=== PATIENT | female | born 1950 | race Caucasian/White ===

== ENCOUNTER → 2016-06-18 | Outpatient (CLI) | payer OTHER ==
[~2016-06-18] MED LIST: CANA100T PO; CEFU500T PO; FAMO20TA5 PO; FLUC200T45 PO; GBPN100C PO; HUM100VI4; HYDR-757 PO; INSU100V5 SQ; INSU100V6; METF-380 PO; ONDA-42 SL; SULF1TAB38 PO; THYROID MEDS
--- NOTE | 2016-06-19 08:56 | ECHOCARDIOGRAPHY REPORT ---
PROCEDURE PHYSICIAN: CALLIE JIM DATE OF PROCEDURE: 06/18/2016 TWO DIMENSIONAL ECHOCARDIOGRAM REPORT PRIMARY PHYSICIAN: OTHER PHYSICIAN: REFERRING PHYSICIAN: Dr. Padma Nuno and Angelika Sanchez APRN ORDERING PHYSICIAN: INDICATION FOR THE PROCEDURE: Shortness of breath. MEASUREMENTS DERIVED VALUES LV DIAMETER (LAX) NORMALS NORMALS Diastolic 4.5 (3.6-5.2) Eject. Fract. 50% (60%+/-6%) Systolic (2.3-3.9) Diastolic Vol. % Shortening (0.22-0.42) Systolic Vol. Aortic Root IVS THICKNESS Diastolic 1.2 (0.6-1.1) LVPW THICKNESS Diastolic 1.2 (0.6-1.1) LA DIAMETER Systolic 3.5 (2.1-3.7) FINDINGS: 1. Technical quality is good. 2. The left ventricle is normal in size with moderate left ventricular hypertrophy noted diffusely. Systolic function appeared to be normal. Estimated ejection fraction 50%. 3. The left atrium is normal in size. No clot or thrombus were seen within the left atrium. 4. The right atrium and right ventricle are normal in size. No clot or thrombus were seen within the right side. 5. 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 Mild mitral regurgitation noted by color Doppler flow. No mitral valve prolapse. No mitral valve stenosis. 6. Aortic valve is calcified, trileaflet. No significant aortic valve stenosis or regurgitation was seen. 7. Tricuspid valve is normal in morphology with mild tricuspid regurgitation noted by color Doppler flow. Doppler across tricuspid valve estimated pulmonary artery pressure of 18+ right atrial pressure. 8. Pulmonic valve is functioning normally. 9. No pericardial effusion. IN CONCLUSION: 1. Normal left ventricular size and systolic function. Estimated ejection fraction 50%. 2. 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 Mild mitral regurgitation, mild tricuspid regurgitation. 3. Aortic valve sclerosis. No aortic stenosis. 4. Estimated pulmonary artery pressure of 25 mmHg. Job ID: [id number] Dictated Date: 06/19/2016 08:09:19 Sales Commissions Analyst Date: 06/19/2016 08:52:36 / pedrito
== END ==
LOC: CARD 08:41
PROVIDERS: ATTEND Nurse Practitioner Community Health
DX: R06.02 Shortness of breath (principal)
CPT/HCPCS: 93306

== ENCOUNTER 2016-07-15 19:38 | Outpatient (CLI) | payer OTHER ==
--- OUTSIDE RECORDS SUMMARY | 2016-07-15 20:45 | XMS REPORT ---
Author Author NIKOLAS JACOB [facility] Address [address] [place] [address] Care Team Providers Care Mottle Lay Up Operator Name Role Phone NIKOLAS JACOB Unavailable PROBLEMS Type Condition ICD9-CM Code [id number] Code Onset Dates Condition Status SNOMED Code Problem Essential hypertension I10 Active 92201497 Problem Hyperlipidemia, unspecified hyperlipidemia type E78.5 Active 01923406 Problem Diabetes E11.9 Active 123585263 Assessment Edema, unspecified type R60.9 Jan, Active 056737683 Problem Neuropathy G62.9 Active 773062927 Problem Hypothyroidism, unspecified E03.9 Active 35993320 ALLERGIES Unknown Allergies SOCIAL HISTORY No smoking Hx information available PLAN OF CARE VITAL SIGNS MEDICATIONS Unknown Medications RESULTS Name Result Date Reference Range POTASSIUM 2016-01-23 Potassium, Serum 3.9 3.5-5.2 PROCEDURES Procedure Date Ordered Related Diagnosis Body Site ROUTINE VENIPUNCTURE 2016-01-23 N/A ASSAY OF SERUM POTASSIUM Jan 23, 2016 VENIPUNCT, ROUTINE* Jan 23, 2016 IMMUNIZATIONS No Known Immunizations
== END 2016-07-16 06:15 | disposition home or self-care (01) ==
LOC: SLEEP 19:38
PROVIDERS: ATTEND Nurse Practitioner Community Health
DX: G47.10 Hypersomnia, unspecified (principal); R06.83 Snoring; G47.30 Sleep apnea, unspecified; I10 Essential (primary) hypertension
CPT/HCPCS: 95811

== ENCOUNTER 2016-09-17 06:39 | Inpatient (IN) | payer OTHER ==
[2016-09-17] VITALS (11 sets, daily range): BP systolic 127–160; BP diastolic 56–97
[~2016-09-17] VITALS: Ht 157.5 cm; Wt 99.4 kg
[2016-09-17 07:14] LABS: BASOPHILS # (AUTO) 0.1 10^3/uL (0.0-0.1); BASOPHILS % (AUTO) 1 % (0-10); EOSINOPHILS # (AUTO) 0.5 10^3/uL (0.0-0.3); EOSINOPHILS % (AUTO) 7 % (0-10); LYMPHOCYTES # (AUTO) 1.5 X 10^3 (1.0-4.0); LYMPHOCYTES % (AUTO) 20 % (12-44); MEAN CORPUSCULAR HEMOGLOBIN 29 PG (25-34); MEAN CORPUSCULAR HGB CONC 32 G/DL (32-36); MEAN CORPUSCULAR VOLUME 91 FL (80-99); MEAN PLATELET VOLUME 9.4 FL (7.4-10.4); MONOCYTES # (AUTO) 0.8 X 10^3 (0.0-1.0); MONOCYTES % (AUTO) 10 % (0-12); NEUTROPHILS # (AUTO) 4.9 X 10^3 (1.8-7.8); NEUTROPHILS % (AUTO) 63 % (42-75); PLATELET COUNT 247 10^3/uL (130-400); RED BLOOD COUNT 3.94 10^6/uL (4.35-5.85); RED CELL DISTRIBUTION WIDTH 14.6 % (10.0-14.5); WHITE BLOOD COUNT 7.7 10^3/uL (4.3-11.0)
--- NOTE | 2016-09-17 07:15 | ED Respiratory ---
General Chief Complaint: Respiratory Problems Stated Complaint: SOB Source: patient History of Present Illness Time seen by provider: 06:52 Initial Comments PT ARRIVES VIA POV FROM HOME C/O SHORTNESS OF BREATH X 1 WEEK, WORSE TODAY NO ANTERIOR CHEST PAIN, BUT HAS PAIN IN RIGHT POSTERIOR CHEST/BACK HAS HAD INCREASED SWELLING IN LEGS SINCE YESTERDAY HAS OCCASIONAL NON-PRODUCTIVE COUGH NO FEVER/SWEATS/CHILLS NO HISTORY OF SIMILAR HAS NOT SOUGHT CARE UNTIL TODAY PCP: RICHIE-MCKAYLA, CRIMINAL JUSTICE PROFESSOR NIKOLAS JACOB Allergies and Home Medications Allergies Coded Allergies: codeine (Unverified Allergy, Severe, ITCHING, 09/02/14) Home Medications Aspirin 81 Mg Tablet.dr, 81 MG PO DAILY, (Reported) Gabapentin 100 Mg Cap, 100 MG PO BID, (Reported) Hum Insulin Nph/Reg Insulin Hm 10 Ml Vial, (Reported) 20 units with breakfast and dinner 10 units with lunch Insulin Detemir 100 U/Ml Vial, 60 UNITS SQ BID, (Reported) Metformin Hcl 1,000 Mg Tablet, 1 EACH PO BID WITH MEALS, (Reported) [Benadryl] , (Reported) [Citalopram] , (Reported) [Fish Oil] , (Reported) [Levothyroxine] , (Reported) [Lisinopril] , (Reported) [Magnesium] , (Reported) [Victoza] , (Reported) Constitutional: no symptoms reported EENTM: no symptoms reported Respiratory: see HPI, cough, dyspnea on exertion, short of breath Cardiovascular: see HPI, edema, No palpitations, No syncope, No vascular heart diseas Gastrointestinal: no symptoms reported Genitourinary: no symptoms reported Musculoskeletal: see HPI, gout Skin: no symptoms reported Psychiatric/Neurological: No Symptoms Reported Hematologic/Lymphatic: No Symptoms Reported Immunological/Allergic: no symptoms reported Past Ighqtnk-Jrvxux-Gedxhj Hx Patient Social History Alcohol Use: Rarely Uses Recreational Drug Use: No Smoking Status: Former Smoker (QUIT 25 YEARS AGO) Recent Foreign Travel: No (N) Surgeries HX Surgeries: Yes (HYST/BSO; BILATERAL CARPAL TUNNEL, RIGHT WRIST GANGLION CYST ) Surgeries: Adenoidectomy, Hysterectomy, Oophorectomy, Orthopedic, Tonsillectomy Respiratory Hx Respiratory Disorders: No Cardiovascular Hx Cardiac Disorders: Yes Cardiac Disorders: Hypertension Neurological Hx Neurological Disorders: Yes Neurological Disorders: Neuropathy Reproductive System Hx Reproductive Disorders: No Sexually Transmitted Disease: No SODA MAKER History: Hysterectomy, Menopausal Genitourinary Hx Genitourinary Disorders: No Gastrointestinal Hx Gastrointestinal Disorders: No Musculoskeletal Hx Musculoskeletal Disorders: Yes (S/P CARPAL TUNNEL REPAIR BILATERALLY) Endocrine Hx Endocrine Disorders: Yes Endocrine Disorders: Diabetes, Insulin dep, Hypothyroidsim HEENT HX ENT Disorders: No Cancer Hx Cancer: No Psychosocial Hx Psychiatric Problems: No Integumentary HX Skin/Integumentary Disorder: No Blood Transfusions Hx Blood Disorders: No Physical Exam Vital Signs Vital Sign - Last 12Hours 09/17/16 09/17/16 06:43 07:05 Temp 97.5 Pulse 73 Resp 24 B/P (MAP) 131/118 Pulse Ox 93 O2 Delivery Nasal Cannula O2 Flow Rate 2.00 Capillary Refill : General Appearance: WD/WN, obese, other (MILDLY DYSPNEIC, ANXIOUS) HEENT: PERRL/EOMI Neck: non-tender, full range of motion, supple, normal inspection Respiratory: decreased breath sounds, rales (FAINT RALES IN BASES BILATERALLY) , other (MILDLY DYSPNEIC) Cardiovascular: normal peripheral pulses, regular rate, rhythm, no murmur Gastrointestinal: normal bowel sounds, non tender, soft Extremities: normal range of motion, non-tender, no calf tenderness, pedal edema (3+ EDEMA ON RIGHT, 2+ EDEMA ON LEFT. ) Neurologic/Psychiatric: technical report writer II-XII nml as tested, no motor/sensory deficits, alert, oriented x 3 Skin: normal color, warm/dry, tattoos/piercings (MULTIPLE PIERCINGS AND TATTOOS ) Progress/Results/Core Measures Results/Orders Lab Results Laboratory Tests Test 09/17/16 06:58 Range/Units White Blood Count 7.7 4.3-11.0 10^3/uL Red Blood Count 3.94 L 4.35-5.85 10^6/uL Hemoglobin 11.6 11.5-16.0 G/DL Hematocrit 36 35-52 % Mean Corpuscular Volume 91 80-99 FL Mean Corpuscular Hemoglobin 29 25-34 PG Mean Corpuscular Hemoglobin Concent 32 32-36 G/DL Red Cell Distribution Width 14.6 H 10.0-14.5 % Platelet Count 247 130-400 10^3/uL Mean Platelet Volume 9.4 7.4-10.4 FL Neutrophils (%) (Auto) 63 42-75 % Lymphocytes (%) (Auto) 20 12-44 % Monocytes (%) (Auto) 10 0-12 % Eosinophils (%) (Auto) 7 0-10 % Basophils (%) (Auto) 1 0-10 % Neutrophils # (Auto) 4.9 1.8-7.8 X 10^3 Lymphocytes # (Auto) 1.5 1.0-4.0 X 10^3 Monocytes # (Auto) 0.8 0.0-1.0 X 10^3 Eosinophils # (Auto) 0.5 H 0.0-0.3 10^3/uL Basophils # (Auto) 0.1 0.0-0.1 10^3/uL Prothrombin Time 13.0 12.2-14.7 SEC INR Comment 1.0 0.8-1.4 Activated Partial Thromboplast Time 28 24-35 SEC Sodium Level 141 135-145 MMOL/L Potassium Level 3.7 3.6-5.0 MMOL/L Chloride Level 106 98-107 MMOL/L Carbon Dioxide Level 26 21-32 MMOL/L Anion Gap 9 5-14 MMOL/L Blood Urea Nitrogen 15 7-18 MG/DL Creatinine 1.16 0.60-1.30 MG/DL Estimat Glomerular Filtration Rate 47 BUN/Creatinine Ratio 13 Glucose Level 114 H 70-105 MG/DL Calcium Level 9.3 8.5-10.1 MG/DL Magnesium Level 1.7 L 1.8-2.4 MG/DL Total Bilirubin 0.4 0.1-1.0 MG/DL Aspartate Amino Transf (AST/SGOT) 21 5-34 U/L Alanine Aminotransferase (ALT/SGPT) 8 0-55 U/L Alkaline Phosphatase 62 40-136 U/L Total Creatine Kinase 179 H 29-168 U/L Creatine Kinase MB 4.7 <6.6 NG/ML Troponin I < 0.30 <0.30 NG/ML B-Type Natriuretic Peptide 119.8 H <100.0 PG/ML Total Protein 7.4 6.4-8.2 G/DL Albumin 3.5 3.2-4.5 G/DL My Orders Orders - CLIFTON GRIFFIN DO Cbc With Automated Diff (09/17/16 07:06) Comprehensive Metabolic Panel (09/17/16 07:06) Creatine Kinase (09/17/16 07:06) Creatine Kinase Mb (09/17/16 07:06) Partial Thromboplastin Time (09/17/16 07:06) Protime With Inr (09/17/16 07:06) Troponin I (09/17/16 07:06) Chest 1 View, Ap/Pa Only (09/17/16 07:06) O2 (09/17/16 07:06) Ekg Tracing (09/17/16 07:06) BNP (09/17/16 07:06) Monitor-Rhythm Ecg Trace Only (09/17/16 07:06) Magnesium (09/17/16 07:06) Vital Signs/I&O Vital Sign - Last 12Hours 09/17/16 09/17/16 09/17/16 06:43 07:05 07:22 Temp 97.5 Pulse 73 Resp 24 B/P (MAP) 131/118 Pulse Ox 93 90 O2 Delivery Nasal Cannula Nasal Cannula Nasal Cannula O2 Flow Rate 2.00 2.00 Progress Note : Progress Note O2 SATS 88-90% ON RA ON ARRIVAL. UP TO MID 90'S ON O2 AT 2L/NC NO DETERIORATION IN PT'S CONDITION DURING ER STAY ECG Initial ECG Impression Time: 07:01 Initial ECG Rate: 62 Initial ECG Rhythm: Normal Sinus Initial ECG Comparisson: No Previous ECG Available Diagnostic Imaging Comments CXR--VASCULAR CONGESTION/PULMONMARY EDEMA, NO CARDIOMEGALY--PER DR. MATAMOROS VIA PHONE AT 0800 Reviewed: Reviewed by Me, Discussed w/Radiologist Departure Communication Progress Notes 0805--SPOKE WITH DR. ECHAVARRIA, HOSPITALIST SUPERINTENDENT CAR CONSTRUCTION FOR [facility]. ACCEPTS PT FOR ADMIT, WOULD LIKE PULMONOLOGY AND CARDIOLOGY CONSULTED 0807--SPOKE WITH DR. CALABRESE, PULMONOLGIST, HE ADVISES ECHOCARDIOGRAM AND BILATERAL LEG VENOUS DOPPLERS-WILL HOLD ON OBTAINING CT CHEST ANGIOGRAM AT THIS TIME 0810--SPOKE WITH DR. JIM, CERTIFIED OPHTHALMIC ASSISTANT, HE ADVISES ABG'S ON ROOM AIR. AND ALSO ADVISES TO HOLD ON OBTAINING CT CHEST ANGIOGRAM AT THIS TIME. Impression Impression: Primary Impression: Hypoxia Additional Impression: Dyspnea Disposition: ADMITTED INPATIENT Condition: Stable Decision to Admit Reason: Admit from ER (General) Decision to Admit/Date: September 17, 2016 Time/Decision to Admit Time: 08:00 Departure-Patient Inst. Referrals: [facility] MCKAYLA (PCP) Primary Care Physician LIZETH TALBOT DO (Family) Primary Care Physician CLIFTON GRIFFIN DO September 17, 2016 07:15
[2016-09-17 07:26] LABS: ALANINE AMINOTRANSFERASE 8 U/L (0-55); ALBUMIN 3.5 G/DL (3.2-4.5); ANION GAP 9 MMOL/L (5-14); ASPARTATE AMINO TRANSFERASE 21 U/L (5-34); BILIRUBIN,TOTAL 0.4 MG/DL (0.1-1.0); BLOOD UREA NITROGEN 15 MG/DL (7-18); BUN/CREATININE RATIO 13; CALCIUM 9.3 MG/DL (8.5-10.1); CARBON DIOXIDE 26 MMOL/L (21-32); CHLORIDE 106 MMOL/L (98-107); CREATINE KINASE 179 U/L (29-168); CREATININE SERUM 1.16 MG/DL (0.60-1.30); GFR ESTIMATED 47; GLUCOSE 114 MG/DL (70-105); MAGNESIUM 1.7 MG/DL (1.8-2.4); POTASSIUM 3.7 MMOL/L (3.6-5.0); SODIUM 141 MMOL/L (135-145); TOTAL PROTEIN 7.4 G/DL (6.4-8.2)
[2016-09-17] MEDS ORDERED: Fish Oil (07:29)
[2016-09-17] MEDS ORDERED: Victoza (07:29)
[2016-09-17] MEDS ORDERED: ASPI-479 PO (07:29)
[2016-09-17] MEDS ORDERED: Levothyroxine (07:29)
[2016-09-17] MEDS ORDERED: Benadryl (07:29)
[2016-09-17] MEDS ORDERED: Citalopram (07:29)
[2016-09-17] MEDS ORDERED: Magnesium (07:29)
[2016-09-17] MEDS ORDERED: Lisinopril (07:29)
[2016-09-17 07:32] LABS: TROPONIN I < 0.30 NG/ML (<0.30)
--- NOTE | 2016-09-17 08:07 | Diagnostic Imaging Report ---
INDICATION: Shortness of breath Frontal chest obtained at 7:24 a.m. Heart is mildly enlarged. There is central vascular congestion and interstitial edema compatible with CHF. There is no pneumothorax or pleural fluid. IMPRESSION: Diffuse interstitial edema compatible with CHF. Dictated by: Dictated on workstation # [id number]
[2016-09-17] MEDS ORDERED: FUROSEMIDE 40 MG/4 ML INJ (LASIX) IVP ONE (08:15)
[2016-09-17] MEDS ORDERED: methylPREDNISolone 125 MG (Solu-MEDROL) VIAL IVP ONE (08:15)
[2016-09-17] MEDS ORDERED: ASPIRIN 81 MG CHEW (CHILDREN'S ASA) PO ONE (08:45)
[2016-09-17 08:54] LABS: ABG BASE EXCESS 3.4 MMOL/L (-2.5-2.5); ABG HCO3 28 MMOL/L (23-27); ABG OXYGEN SATURATION 92 % (94-100); ABG PCO2 45 MMHG (35-45); ABG PH 7.41 (7.37-7.43); ABG PO2 62 MMHG (79-93); ABG TCO2 29.1 MMOL/L (21.0-31.0); ALLENS TEST POSITIVE; PATIENT TEMP 98.3
[2016-09-17] MEDS ORDERED: CATHETER FLUSH 10 ML SYR IV PRN (10:15)
[2016-09-17] MEDS ORDERED: INSU100I14 SQ ×2 (11:05)
[2016-09-17] MEDS ORDERED: METF500T8 PO (11:05)
[2016-09-17] MEDS ORDERED: INSU100I29 SQ (11:05)
[2016-09-17] MEDS ORDERED: ATOR40TA70 PO (11:05)
[2016-09-17] MEDS ORDERED: GABA-488 PO (11:05)
[2016-09-17] MEDS ORDERED: MAGN500C15 PO (11:05)
[2016-09-17] MEDS ORDERED: LEVO100T7 PO (11:05)
[2016-09-17] MEDS ORDERED: LIRA0.6P3 SQ (11:05)
[2016-09-17] MEDS ORDERED: CITA20TA7 PO (11:05)
[2016-09-17] MEDS ORDERED: OMEG-109 PO (11:05)
[2016-09-17] MEDS ORDERED: CANA100T PO (11:05)
[2016-09-17] MEDS ORDERED: DIPH25TA29 PO (11:05)
[2016-09-17] MEDS ORDERED: LISI-552 PO (11:05)
[2016-09-17] MEDS: inSUlin (REGULAR) HUMAN 1 UNIT/0.01 ML (CHARGE PER UNIT) SC SCH ×3 (11:36→20:34)
--- NOTE | 2016-09-17 12:41 | Consultation-Cardiology ---
HPI-Cardiology Cardiology Consultation Date of Consultation 09/17/16 Date of Admission Indication: shortness of breath HPI 66 years old lady with history of COPD, sleep apnea, hypertension, hyperlipidemia and diabetes mellitus, has been having increasing shortness of breath which was worsening recently to the point that it became significantly worse today, came into the emergency room, has been having worsening pedal edema , denied any chest pain, palpitation, syncope or near syncopal episodes, no fever or chills. Home Medications & Allergies Allergies: Coded Allergies: codeine (Unverified Allergy, Severe, ITCHING, 09/02/14) Home Medication List Reviewed: Yes UDW-Zzyoqy-Fieoah Hx Patient Social History Alcohol Use: Denies Use Recreational Drug Use: No Smoking Status: Former Smoker Recent Foreign Travel: No Recent Infectious Disease Expo: No Recent Hopitalizations: No Physical Abuse Screen: No Sexual Abuse: No Immunizations Up To Date Date of Pneumonia Vaccine: Feb 02, 2015 Past Medical History past medical history as discussed below Family Medical History Family History: 19 FATHER FH: emphysema FH: congestive heart failure Heart murmur 19 MOTHER FH: emphysema Alzheimer's disease G8 BROTHER Diabetes mellitus Hypertension G8 SISTER FH: emphysema FH: lung cancer FH: anemia Psychosocial problem FH: sleep apnea Constitutional: see HPI, malaise, weakness EENTM: no symptoms reported, see HPI Respiratory: see HPI, No cough, dyspnea on exertion, No hemoptysis, No orthopnea, No phlegm, short of breath, No stridor, No wheezing, No other Cardiovascular: see HPI, No chest pain, edema, No Hx of Intervention, No palpitations, No syncope, No vascular heart diseas, No other Gastrointestinal: no symptoms reported, see HPI Genitourinary: no symptoms reported, see HPI Musculoskeletal: no symptoms reported, see HPI Skin: no symptoms reported, see HPI Psychiatric/Neurological: No Symptoms Reported, See HPI Reviewed Test Results Reviewed Test Results Lab Laboratory Tests Test 09/17/16 06:58 09/17/16 08:35 09/17/16 11:29 Range/Units White Blood Count 7.7 4.3-11.0 10^3/uL Red Blood Count 3.94 L 4.35-5.85 10^6/uL Hemoglobin 11.6 11.5-16.0 G/DL Hematocrit 36 35-52 % Mean Corpuscular Volume 91 80-99 FL Mean Corpuscular Hemoglobin 29 25-34 PG Mean Corpuscular Hemoglobin Concent 32 32-36 G/DL Red Cell Distribution Width 14.6 H 10.0-14.5 % Platelet Count 247 130-400 10^3/uL Mean Platelet Volume 9.4 7.4-10.4 FL Neutrophils (%) (Auto) 63 42-75 % Lymphocytes (%) (Auto) 20 12-44 % Monocytes (%) (Auto) 10 0-12 % Eosinophils (%) (Auto) 7 0-10 % Basophils (%) (Auto) 1 0-10 % Neutrophils # (Auto) 4.9 1.8-7.8 X 10^3 Lymphocytes # (Auto) 1.5 1.0-4.0 X 10^3 Monocytes # (Auto) 0.8 0.0-1.0 X 10^3 Eosinophils # (Auto) 0.5 H 0.0-0.3 10^3/uL Basophils # (Auto) 0.1 0.0-0.1 10^3/uL Prothrombin Time 13.0 12.2-14.7 SEC INR Comment 1.0 0.8-1.4 Activated Partial Thromboplast Time 28 24-35 SEC Sodium Level 141 135-145 MMOL/L Potassium Level 3.7 3.6-5.0 MMOL/L Chloride Level 106 98-107 MMOL/L Carbon Dioxide Level 26 21-32 MMOL/L Anion Gap 9 5-14 MMOL/L Blood Urea Nitrogen 15 7-18 MG/DL Creatinine 1.16 0.60-1.30 MG/DL Estimat Glomerular Filtration Rate 47 BUN/Creatinine Ratio 13 Glucose Level 114 H 70-105 MG/DL Calcium Level 9.3 8.5-10.1 MG/DL Magnesium Level 1.7 L 1.8-2.4 MG/DL Total Bilirubin 0.4 0.1-1.0 MG/DL Aspartate Amino Transf (AST/SGOT) 21 5-34 U/L Alanine Aminotransferase (ALT/SGPT) 8 0-55 U/L Alkaline Phosphatase 62 40-136 U/L Total Creatine Kinase 179 H 29-168 U/L Creatine Kinase MB 4.7 <6.6 NG/ML Troponin I < 0.30 <0.30 NG/ML B-Type Natriuretic Peptide 119.8 H <100.0 PG/ML Total Protein 7.4 6.4-8.2 G/DL Albumin 3.5 3.2-4.5 G/DL Blood Gas Puncture Site RIGHT RADIAL Blood Gas Patient Temperature 98.3 Arterial Blood pH 7.41 7.37-7.43 Arterial Blood Partial Pressure CO2 45 35-45 MMHG Arterial Blood Partial Pressure O2 62 L 79-93 MMHG Arterial Blood HCO3 28 H 23-27 MMOL/L Arterial Blood Total CO2 29.1 21.0-31.0 MMOL/L Arterial Blood Oxygen Saturation 92 L 94-100 % Arterial Blood Base Excess 3.4 H -2.5-2.5 MMOL/L Yannick Test POSITIVE Blood Gas Ventilator Setting NO Blood Gas Inspired Oxygen N/A Glucometer 91 70-110 MG/DL Physical Exam Vital Signs Vital Sign - Last 12Hours 09/17/16 09/17/16 06:43 07:05 Temp 97.5 Pulse 73 Resp 24 B/P (MAP) 131/118 Pulse Ox 93 O2 Delivery Nasal Cannula O2 Flow Rate 2.00 Capillary Refill : Less Than 3 SecondsLess Than 3 Seconds General Appearance: No Apparent Distress, WD/WN Eyes: Bilateral Eye EOMI, Bilateral Eye Normal Inspection, Bilateral Eye PERRL HEENT: PERRL/EOMI, TMs Normal, Normal ENT Inspection, Pharynx Normal Neck: Full Range of Motion, Normal Inspection, Non Tender, Supple, Carotid Bruit Respiratory: Chest Non Tender, Lungs Clear, Normal Breath Sounds, No Accessory Muscle Use, No Respiratory Distress Cardiovascular: Regular Rate, Rhythm, No Edema, No Gallop, No JVD, No Murmur, Normal Peripheral Pulses Gastrointestinal: Normal Bowel Sounds, No Organomegaly, No Pulsatile Mass, Non Tender, Soft Back: Normal Inspection, No CVA Tenderness, No Vertebral Tenderness Extremity: Normal Capillary Refill, Normal Inspection, Normal Range of Motion, Non Tender, No Calf Tenderness, Pedal Edema Neurologic/Psychiatric: Alert, Oriented x3, No Motor/Sensory Deficits, Normal Mood/Affect Skin: Normal Color, Warm/Dry Lymphatic: No Adenopathy A/P-Cardiology Admission Diagnosis Shortness of breath COPD Diabetes mellitus Peripheral edema Assessment/Plan Shortness of breath, significantly worse recently, has underlying COPD, worsening pedal edema, echocardiogram was done in June 2016 showing normal left ventricle size and function, planning to repeat echocardiogram, larger AA gradient, I will start her on Lovenox and evaluate venous Doppler study. Diabetes mellitus, followed and managed by primary care physician COPD, questionable sleep apnea, had a sleep study done recently. Peripheral edema, worsening recently, planning to evaluate echocardiogram. Pulmonary edema, I will repeat chest x-ray with PA and lateral evaluation. Clinical Quality Measures DVT/VTE Risk/Contraindication: Risk Factor Score Per Nursin RFS Level Per Nursing on Admit: 4+=Very High CALLIE JIM MD September 17, 2016 12:41
[2016-09-17] MEDS: ENOXAPARIN 100 MG/1 ML (LOVENOX) SYR SC SCH (13:08)
[2016-09-17] MEDS: CATHETER FLUSH 10 ML SYR IV SCH ×2 (14:14→20:35)
--- NOTE | 2016-09-17 14:49 | Diagnostic Imaging Report ---
PA and lateral views of the chest. COMPARISON: 09/17/2016, earlier today, single AP radiograph. INDICATION: Shortness of breath. FINDINGS: There is diffuse interstitial thickening with no significant airspace consolidation with associated small pleural effusions likely related to interstitial pulmonary edema. The heart size however is normal. No pneumothorax. IMPRESSION: Findings likely secondary to interstitial pulmonary edema. Bilateral small effusions. The heart size however is normal. Correlate clinically. Dictated by: Dictated on workstation # [id number]
--- NOTE | 2016-09-17 15:35 | Diagnostic Imaging Report ---
EXAMINATION: Bilateral lower extremity duplex venous ultrasound. TECHNIQUE: DVT protocol. Multiple sonographic images with color Doppler and waveform interrogation were performed of the lower extremity veins, bilaterally, with compression and augmentation maneuvers. INDICATION: Bilateral leg edema. FINDINGS: The lower extremity veins from the common femoral veins to below the knee veins were examined with normal color-flow, compressibility and normal waveform demonstrated. The great saphenous vein bilaterally is patent. IMPRESSION: No evidence of DVT in either lower extremity. Dictated by: Dictated on workstation # [id number]
[2016-09-17] MEDS ORDERED: IBUPROFEN 600 MG (MOTRIN) TAB PO PRN (20:30)
[2016-09-17] MEDS ORDERED: ATORVASTATIN 40 MG (LIPITOR) TABLET PO SCH (21:00)
[2016-09-18] VITALS: BP 133/59
[2016-09-18] MEDS: ENOXAPARIN 100 MG/1 ML (LOVENOX) SYR SC SCH (00:05)
[2016-09-18 04:00] VITALS: BP 130/64
[2016-09-18 04:47] LABS: BASOPHILS % (AUTO) 0 % (0-10); EOSINOPHILS % (AUTO) 0 % (0-10); LYMPHOCYTES # (AUTO) 1.2 X 10^3 (1.0-4.0); LYMPHOCYTES % (AUTO) 11 % (12-44); MEAN CORPUSCULAR HEMOGLOBIN 29 PG (25-34); MEAN CORPUSCULAR HGB CONC 33 G/DL (32-36); MEAN CORPUSCULAR VOLUME 90 FL (80-99); MEAN PLATELET VOLUME 10.1 FL (7.4-10.4); MONOCYTES # (AUTO) 0.9 X 10^3 (0.0-1.0); MONOCYTES % (AUTO) 8 % (0-12); NEUTROPHILS # (AUTO) 8.8 X 10^3 (1.8-7.8); NEUTROPHILS % (AUTO) 81 % (42-75); PLATELET COUNT 244 10^3/uL (130-400); RED BLOOD COUNT 3.71 10^6/uL (4.35-5.85); RED CELL DISTRIBUTION WIDTH 14.5 % (10.0-14.5); WHITE BLOOD COUNT 10.8 10^3/uL (4.3-11.0)
[2016-09-18 05:10] LABS: ALBUMIN 3.4 G/DL (3.2-4.5); BILIRUBIN,TOTAL 0.6 MG/DL (0.1-1.0); CREATININE SERUM 1.42 MG/DL (0.60-1.30); POTASSIUM 4.1 MMOL/L (3.6-5.0); TOTAL PROTEIN 7.1 G/DL (6.4-8.2)
[2016-09-18] MEDS: inSUlin (REGULAR) HUMAN 1 UNIT/0.01 ML (CHARGE PER UNIT) SC SCH ×2 (05:56→11:36)
[2016-09-18] MEDS: CATHETER FLUSH 10 ML SYR IV SCH (05:56)
--- NOTE | 2016-09-18 06:56 | ECHOCARDIOGRAPHY REPORT ---
DATE OF SERVICE: 09/17/2016 PROCEDURE PERFORMED: Two-Dimensional echocardiogram with Doppler. REFERRING PHYSICIAN: [facility]. MEASUREMENT: LVID end diastolic 4.7. IVS thickness 1.1. LVPW thickness 1.2. Left atrial diameter 2.8. Ejection fraction 60%. FINDINGS: 1. Technically suboptimal study. 2. The left ventricle is normal in size, endocardium was not well visualized in all segments, overall systolic function appeared to be normal, estimated ejection fraction 60%. 3. The left atrium is normal in size. No clot or thrombus were seen within the left atrium. 4. The right atrium and right ventricle are normal in size. No clot or thrombus were seen within the right side. 5. 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 No mitral valve prolapse. No mitral valve stenosis. 6. Aortic valve is calcified, trileaflet with no significant aortic valve stenosis or regurgitation seen. 7. Tricuspid valve is normal in morphology, Doppler across the tricuspid valve estimated pulmonary artery pressure of 3+ right atrial pressure. 8. Pulmonic valve is functioning normally. 9. No pericardial effusion. CONCLUSION: 1. Technically difficult study. 2. Normal left ventricular size, endocardium was not well visualized in all segments. Estimated ejection fraction 60%. 3. 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 4. Estimated pulmonary artery pressure of 10 mmHg. Job ID: [id number] DocumentID: [id number] Dictated Date: 09/17/2016 15:08:48 Armed Guard Date: 09/17/2016 16:54:33 Dictated By: CALLIE JIM MD
--- NOTE | 2016-09-18 06:57 | Pulmonary Consultation ---
History of Present Illness History of Present Illness Date of Consultation 09/18/16 06:51 Date of Admission Reason for Visit: shortness of breath History of Present Illness 66yo with hx of COPD, DAVID, presented to ED secondary to worsening SOB becoming significantly worse today. symptoms started 1 wk ago She also complains of worsening bilateral edema. No CP, hemoptysis, or syncope, No f/NS/C. She has not had any treatment for symptoms at home prior to arrival. No prior hx of like this. I am consulted for pulmonary management. Allergies and Home Medications Allergies Coded Allergies: codeine (Unverified Allergy, Severe, ITCHING, 09/02/14) Home Medications Aspirin 81 Mg Tablet.dr, 81 MG PO DAILY, (Reported) Atorvastatin Calcium 40 Mg Tablet, 40 MG PO HS, (Reported) Canagliflozin 100 Mg Tablet, 100 MG PO HS, (Reported) Citalopram Hydrobromide 20 Mg Tablet, 20 MG PO DAILY, (Reported) Diphenhydramine HCl 25 Mg Tablet, 25 MG PO BID, (Reported) Gabapentin 300 Mg Capsule, 600 MG PO BID, (Reported) TAKES 2 (300 MG) CAPSULES Insulin Aspart 300 Units/3 Ml Solution, 20 UNITS SQ BID@0800,2000, (Reported) Insulin Aspart 300 Units/3 Ml Solution, 10 UNITS SQ DAILY@1200, (Reported) Insulin Detemir 100 Unit/1 Ml Insuln.pen, 60 UNITS SQ BID, (Reported) Levothyroxine Sodium 100 Mcg Tablet, 100 MG PO DAILY, (Reported) Liraglutide 0.6 Mg/0.1 Ml Pen.injctr, 1.8 MG SQ DAILY, (Reported) Lisinopril 20 Mg Tablet, 20 MG PO DAILY, (Reported) Magnesium Oxide 500 Mg Capsule, 500 MG PO BID, (Reported) Metformin HCl 500 Mg Tab.er.24h, 1,000 MG PO BID, (Reported) TAKES 2 (500 MG) TABLETS [place]-3 Fatty Acids/Fish Oil 1 Each Capsule, 2,400 MG PO BID, (Reported) TAKES 2 (1,200 MG) CAPSULES Past Kroeezy-Wwszpp-Ivnnpe Hx Patient Social History Alcohol Use: Denies Use Recreational Drug Use: No Smoking Status: Former Smoker Recent Foreign Travel: No Contact w/Someone Who Travel: Yes Recent Infectious Disease Expo: No Recent Hopitalizations: No Physical Abuse Screen: No Sexual Abuse: No Immunizations Up To Date Date of Pneumonia Vaccine: Feb 02, 2015 Seasonal Allergies Seasonal Allergies: No Surgeries HX Surgeries: Yes (HYST/BSO; BILATERAL CARPAL TUNNEL, RIGHT WRIST GANGLION CYST ) Surgeries: Adenoidectomy, Hysterectomy, Oophorectomy, Orthopedic, Tonsillectomy Respiratory Hx Respiratory Disorders: No Respiratory Disorders: Sleep Apnea Cardiovascular Hx Cardiac Disorders: Yes Cardiac Disorders: Hypertension Neurological Hx Neurological Disorders: Yes Neurological Disorders: Neuropathy Reproductive System Hx Reproductive Disorders: No Sexually Transmitted Disease: No 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: Hysterectomy, Menopausal Genitourinary Hx Genitourinary Disorders: No Gastrointestinal Hx Gastrointestinal Disorders: No Musculoskeletal Hx Musculoskeletal Disorders: Yes (S/P CARPAL TUNNEL REPAIR BILATERALLY) Endocrine Hx Endocrine Disorders: Yes Endocrine Disorders: Diabetes, Insulin dep, Hypothyroidsim HEENT HX ENT Disorders: No HEENT Disorders: Cataract Cancer Hx Cancer: No Psychosocial Hx Psychiatric Problems: No Behavioral Health Disorders: Depression Integumentary HX Skin/Integumentary Disorder: No Blood Transfusions Hx Blood Disorders: No Adverse Reaction to a Blood Tr: No Family Medical History Family Medial History: Alzheimer's disease 19 MOTHER Diabetes mellitus G8 BROTHER FH: anemia G8 SISTER FH: congestive heart failure 19 FATHER FH: emphysema 19 FATHER 19 MOTHER G8 SISTER FH: lung cancer G8 SISTER FH: sleep apnea G8 SISTER Heart murmur 19 FATHER Hypertension G8 BROTHER Psychosocial problem G8 SISTER Review of Systems Constitutional: Malaise, Sweats, Weakness, No: Chills, Fever, Other Eyes: No: Conjunctivae inflammation, Eyelid inflammation, Other, Pain, Redness , Vision change ENT: No: Ear discharge, Ear pain, Mouth pain, Mouth swelling, Nose congestion, Nose discharge, Nose pain, Other, Throat pain, Throat swelling Respiratory: Cough, Dry, SOB with excertion, Shortness of breath, No: Hemoptysis, Pleuritic Pain, Wheezing Cardiovascular: Edema, Orthopnea, Paroxysmal Noc. Dyspnea, No: Chest Pain, Lt Headedness, Other, Palpitations Gastrointestinal: No: Abdominal Pain, Constipation, Diarrhea, Hematochezia, Melena, Nausea, Other, Vomiting Genitourinary: No Dysuria, No Frequency, No Incontinence, No Hematuria, No Retention, No Other Musculoskeletal: back pain, No: arm pain, foot pain, hand pain, leg pain, neck pain, other, shoulder pain Skin: No: Bruising, Jaundice, Lesions, Other, Rash Neurological: Confusion, Weakness Exam Exam Vital Signs Date Time Temp Pulse Resp B/P (MAP) Pulse Ox O2 Delivery O2 Flow Rate FiO2 09/18/16 04:00 98 2.50 09/18/16 04:00 98.7 66 16 130/64 96 2.00 09/18/16 01:00 73 09/18/16 00:00 98 2.50 09/18/16 00:00 96.3 70 18 133/59 95 2.00 09/17/16 21:00 98 2.50 09/17/16 20:00 98 2.50 09/17/16 20:00 98.2 71 20 136/56 98 2.00 09/17/16 19:00 69 09/17/16 17:10 97.9 70 18 127/74 94 2.00 09/17/16 16:00 66 21 97 2.00 09/17/16 16:00 98 2.00 09/17/16 15:00 63 18 159/97 95 2.00 09/17/16 13:00 63 09/17/16 13:00 97.9 92 18 134/73 95 2.00 09/17/16 12:00 97 2.00 09/17/16 12:00 63 20 157/97 96 2.00 09/17/16 11:30 62 21 154/75 96 2.00 09/17/16 11:00 58 18 160/75 94 2.00 09/17/16 10:45 64 19 145/81 97 2.00 09/17/16 10:30 59 18 150/93 95 2.00 09/17/16 10:15 57 20 145/73 96 2.00 09/17/16 10:09 57 09/17/16 09:45 97.6 57 22 153/78 97 2.00 09/17/16 09:40 2.00 09/17/16 09:30 63 18 96 2.00 09/17/16 07:22 Nasal Cannula 2.00 09/17/16 07:05 90 Nasal Cannula 2.00 I & O 09/18/16 07:00 Intake Total 300 ml Output Total 3300 ml Balance -3000 ml General Appearance: No Apparent Distress, WD/WN HEENT: PERRL/EOMI, TMs Normal, Normal ENT Inspection, Pharynx Normal Neck: Full Range of Motion, Normal Inspection, Non Tender, Supple, Carotid Bruit Respiratory: Chest Non Tender, Lungs Clear, Normal Breath Sounds, No Accessory Muscle Use, No Respiratory Distress Cardiovascular: Regular Rate, Rhythm, No Edema, No Gallop, No JVD, No Murmur, Normal Peripheral Pulses Capillary Refill: Less Than 3 Seconds Gastrointestinal: normal bowel sounds, non tender, soft Extremity: Normal Capillary Refill, Normal Inspection, Normal Range of Motion, Non Tender, No Calf Tenderness, Pedal Edema Neurologic/Psychiatric: Alert, Oriented x3, No Motor/Sensory Deficits, Normal Mood/Affect Skin: Normal Color, Warm/Dry Lymphatic: No Adenopathy Results Lab Laboratory Tests 09/17/16 06:58 09/18/16 03:55 Assessment/Plan Assessment/Plan Acute pulmonary edema with dyspnea -- doubt PE or PNA -check echocardiogram -improved today Bilateral LE edema -bilateral LE dopplers are negative COPDAE -MAT protocol -Solumedrol - decrease to 40 IV Q 12 Probable DAVID -out patient testing Acute renal failure probably secondary to lasix -monitor Clinical Quality Measures DVT/VTE Risk/Contraindication: Risk Factor Score Per Nursin RFS Level Per Nursing on Admit: 4+=Very High ALBA CALABRESE DO September 18, 2016 06:57
--- NOTE | 2016-09-18 07:38 | Diagnostic Imaging Report ---
INDICATION: Hypoxia, dyspnea, ICU care COMPARISON STUDY: Chest from yesterday. FINDINGS: Portable upright view of the chest demonstrates some improvement in the pulmonary edema. The heart size is within normal limits. No effusions are present. IMPRESSION: Pulmonary edema has slightly improved. Dictated by: Dictated on workstation # [id number]
[2016-09-18 08:00] VITALS: BP 142/61
--- NOTE | 2016-09-18 08:37 | Cardiology Progress Note ---
Subjective Subjective/Events-last exam Patient is sitting up in bed. Complains of some neuropathy in her feet last night. Denies any CP or dyspnea. States swelling in her legs have improved some. Review of Systems General: No Night Sweats, No Fatigue, No Malaise HEENT: No Visual Changes, No Dysphasia, No Sore Throat Pulmonary: Dyspnea, No Cough, No Pleuritic Chest Pain Cardiovascular: No: Chest Pain, Orthopnea, Palpitations Gastrointestinal: No: Abdominal Pain, Nausea, Vomiting Genitourinary: No Dysuria, No Frequency Musculoskeletal: No: back pain, neck pain Neurological: No: Change in speech, Confusion, Numbness, Weakness Objective-Cardiology Exam Last Set of Vital Signs Vital Signs 09/17/16 09/18/16 09/18/16 09/18/16 07:22 04:00 06:53 07:00 Temp 98.7 Pulse 63 Resp 16 B/P (MAP) 130/64 Pulse Ox 96 O2 Delivery Nasal Cannula O2 Flow Rate 2.00 Capillary Refill : Less Than 3 SecondsLess Than 3 Seconds I&O Bad tableGeneral: Alert, Oriented X3, Cooperative HEENT: Atraumatic, PERRLA Neck: Supple, No JVD, No Thyromegaly Lungs: Clear to Auscultation, Normal Air Movement Heart: Regular Rate, Normal S1, Normal S2, No Murmurs Abdomen: Normal Bowel Sounds, Soft, No Tenderness, No Hepatosplenomegaly, No Masses Extremities: Other (+1 edema BLE) Skin: No Rashes, No Significant Lesion Neuro: Normal Gait, Normal Speech, Cranial Nerves 3-12 NL Psych/Mental Status: Mental Status NL, Mood NL Results Lab Laboratory Tests 09/18/16 03:55 A/P-Cardiology Admission Diagnosis Shortness of breath COPD Diabetes mellitus Peripheral edema Assessment/Plan Shortness of breath, patient reports improvement today, has underlying COPD, worsening pedal edema, echocardiogram was done yesterday showing normal left ventricle size and function. Continue to monitor. Diabetes mellitus, followed and managed by primary care physician COPD, questionable sleep apnea, had a sleep study done recently. Peripheral edema,venous doppler of lower extremities negative for DVT. Pulmonary edema, continue to monitor. Clinical Quality Measures DVT/VTE Risk/Contraindication: Risk Factor Score Per Nursin RFS Level Per Nursing on Admit: 4+=Very High MARU MCNALLY September 18, 2016 08:36
[2016-09-18] MEDS ORDERED: methylPREDNISolone 40 MG/ML (Solu-MEDROL) VIAL IV SCH (09:00)
[2016-09-18] MEDS ORDERED: lisINopril 20 MG (ZESTRIL) TAB PO SCH (09:00)
[2016-09-18] MEDS ORDERED: FUROSEMIDE 40 MG/4 ML INJ (LASIX) IVP NR (10:00)
--- NOTE | 2016-09-18 10:04 | Cardiology Progress Note ---
Subjective Subjective/Events-last exam patient is laying down in bed, feeling better, less dyspneic, no chest pain was reported. Review of Systems General: No Chills, No Night Sweats, No Fatigue, No Malaise, No Appetite, No Other HEENT: No Head Aches, No Visual Changes, No Eye Pain, No Ear Pain, No Dysphasia , No Sinus Congestion, No Post Nasal Drip, No Sore Throat, No Other Pulmonary: Dyspnea, No Cough, No Pleuritic Chest Pain, No Other Cardiovascular: Edema, No: Chest Pain, Lt Headedness, Orthopnea, Other, Palpitations, Paroxysmal Noc. Dyspnea Objective-Cardiology Exam Last Set of Vital Signs Vital Signs 09/17/16 09/18/16 07:22 08:00 Temp 97.9 Pulse 67 Resp 20 B/P (MAP) 142/61 Pulse Ox 98 O2 Delivery Nasal Cannula O2 Flow Rate 2.00 Capillary Refill : Less Than 3 SecondsLess Than 3 Seconds I&O Bad tableGeneral: Alert, Oriented X3, Cooperative HEENT: Atraumatic, PERRLA Neck: Supple, No JVD, No Thyromegaly Lungs: Clear to Auscultation, Normal Air Movement Heart: Regular Rate, Normal S1, Normal S2, No Murmurs Abdomen: Normal Bowel Sounds, Soft, No Tenderness, No Hepatosplenomegaly, No Masses Extremities: Other (+2 pedal edema) Skin: No Rashes, No Significant Lesion Neuro: Normal Gait, Normal Speech, Cranial Nerves 3-12 NL Psych/Mental Status: Mental Status NL, Mood NL Results Lab Laboratory Tests 09/18/16 03:55 A/P-Cardiology Admission Diagnosis Shortness of breath COPD Diabetes mellitus Peripheral edema Assessment/Plan Shortness of breath, patient reports improvement today, has underlying COPD, continue to monitor Diabetes mellitus, followed and managed by primary care physician COPD, questionable sleep apnea, had a sleep study done recently. Peripheral edema, normal left ventricular systolic function, normal ejection fraction, probably an element of cor pulmonale with fluid overload, there is questionable pulmonary edema, responded to Lasix. I will give additional dose. Acute on chronic renal insufficiency, worsening after diuretics. I'll give additional dose and monitor renal function, continue to monitor electrolytes Pulmonary edema, continue to monitor. A for discharge and follow-up in my office Clinical Quality Measures DVT/VTE Risk/Contraindication: Risk Factor Score Per Nursin RFS Level Per Nursing on Admit: 4+=Very High CALLIE JIM MD September 18, 2016 10:04
[2016-09-18] MEDS ORDERED: FURO-125 PO (10:13)
--- NOTE | 2016-09-18 10:22 | Short Stay Summary-Hospitalist ---
HPI History of Present Illness: HPI/Chief Complaint CC: SOB HPI: This is a 66 yoWF pt of Angelika Sanchez at [facility] who presented with SOB to ER and found to have pulmonary edema of unknown source since BNP was nl and ECHO had nl EF so venous doppler was negative for DVT so CT angio was felt to be too risky due to DM nephropathy Dr. Anderson Review: Pt has responded to 40mg of Lasix IV, but her kidneys have worsened with creat 1.47 Dr. Anderson will follow up with pt as out-pt Pt will need to be on Lasix upon DC. She will need 20mg daily Pt was advised to limit her fluid intake. Dr. 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 Anderson stated that he believes she is okay to transfer to the floor or DC Pt lost about 6 lbs since the beginning of her stay Pt is on O2 but home o2 evaluation did not meet criteria for initiation Pt moves to the bathroom on her own, but does not move much otherwise Patient Interview: Pt states that she is much better since she got the fluid off her lungs Pt confirms PCP as Angelika Sanchez at [facility] Pt was informed that she will most likely be on O2 at home Pt states that her next appt for sleep apnea is Friday with Angelika Sanchez. Pt states that she will receive a machine after the second sleep study. Physical exam stable Pt states that she is having a pain in her back, on the right side, that has persisted for a while. Pt has not been sleeping much. Pt was encouraged to ambulate Pt was informed that her home meds were restarted. Scribed by Renate Grajeda under the direct supervision of Dr. Echavarria. Source: patient Exam Limitations: no limitations Date Seen 09/18/16 Attending Physician Chio Echavarria DO PCP kartik,[facility] Referring Physician Date of Admission September 17, 2016 at 08:00 Home Medications & Allergies Home Medications Reviewed patient Home Medication Reconciliation Form Allergies Allergies Coded Allergies codeine (Unverified Allergy, Severe, ITCHING, 09/02/14) Past Hunnwyj-Wmgkks-Kmfmha Hx Patient Social History Employed/Student: unemployed Alcohol Use: Denies Use Recreational Drug Use: No Smoking Status: Former Smoker Physical Abuse Screen: No Sexual Abuse: No Recent Foreign Travel: No Contact w/other who traveled: Yes Recent Hopitalizations: No Recent Infectious Disease Expo: No Immunizations Up To Date Date of Pneumonia Vaccine: Feb 02, 2015 Seasonal Allergies Seasonal Allergies: No Surgeries HX Surgeries: Yes (HYST/BSO; BILATERAL CARPAL TUNNEL, RIGHT WRIST GANGLION CYST ) Surgeries: Adenoidectomy, Hysterectomy, Oophorectomy, Orthopedic, Tonsillectomy Respiratory Hx Respiratory Disorders: Yes Respiratory Disorders: Sleep Apnea (repeat sleep study scheduled) Cardiovascular Hx Cardiovascular Disorders: Yes Cardiac Disorders: Hypertension Neurological Hx Neurological Disorders: Yes Neurological Disorders: Neuropathy Reproductive System Hx Reproductive Disorders: No Sexually Transmitted Disease: No Genitourinary Hx Genitourinary Disorders: No Gastrointestinal Hx Gastrointestinal Disorders: No Musculoskeletal Hx Musculoskeletal Disorders: Yes (S/P CARPAL TUNNEL REPAIR BILATERALLY) Endocrine Hx Endocrine Disorders: Yes Endocrine Disorders: Diabetes, Insulin dep, Hypothyroidsim HEENT HX ENT Disorders: No HEENT Disorders: Cataract Cancer Hx Cancer: No Psychosocial Hx Psychiatric Problems: No Behavioral Health Disorders: Depression Integumentary HX Skin/Integumentary Disorder: No Blood Transfusions Hx Blood Disorders: No Adverse Reaction to a Blood Tr: No Family Medical History Family Hx: Alzheimer's disease 19 MOTHER Diabetes mellitus G8 BROTHER FH: anemia G8 SISTER FH: congestive heart failure 19 FATHER FH: emphysema 19 FATHER 19 MOTHER G8 SISTER FH: lung cancer G8 SISTER FH: sleep apnea G8 SISTER Heart murmur 19 FATHER Hypertension G8 BROTHER Psychosocial problem G8 SISTER Review of Systems Constitutional: see HPI, weakness EENTM: no symptoms reported Respiratory: short of breath, wheezing Cardiovascular: palpitations Gastrointestinal: no symptoms reported Genitourinary: no symptoms reported Musculoskeletal: back pain (right flank) Skin: no symptoms reported Psychiatric/Neurological: No Symptoms Reported All Other Systems Reviewed Negative Unless Noted: Yes Physical Exam Physical Exam Vital Signs Vital Sign - Last 12Hours 09/17/16 09/17/16 06:43 07:05 Temp 97.5 Pulse 73 Resp 24 B/P (MAP) 131/118 Pulse Ox 93 O2 Delivery Nasal Cannula O2 Flow Rate 2.00 Capillary Refill : Less Than 3 SecondsLess Than 3 Seconds General Appearance: No Apparent Distress, WD/WN, Chronically ill, Obese Eyes: Bilateral Eye Normal Inspection, Bilateral Eye PERRL HEENT: PERRL/EOMI, Normal ENT Inspection, Pharynx Normal Neck: Full Range of Motion, Normal Inspection, Non Tender, Supple, Carotid Bruit Respiratory: Chest Non Tender, Lungs Clear, Normal Breath Sounds, No Accessory Muscle Use, No Respiratory Distress Cardiovascular: Regular Rate, Rhythm, No Edema, No Gallop, No JVD, No Murmur, Normal Peripheral Pulses Gastrointestinal: Normal Bowel Sounds, No Organomegaly, No Pulsatile Mass, Non Tender, Soft Back: Normal Inspection, No CVA Tenderness, No Vertebral Tenderness Extremity: Normal Capillary Refill, Normal Inspection, Normal Range of Motion, Non Tender, No Calf Tenderness, No Pedal Edema Neurologic/Psychiatric: Alert, Oriented x3, No Motor/Sensory Deficits, Normal Mood/Affect Skin: Normal Color, Warm/Dry Lymphatic: No Adenopathy Results Results/Procedures Lab Laboratory Tests 09/17/16 06:58 09/18/16 03:55 Short Stay Diagnosis Discharge Diagnosis-Short Stay Admission Diagnosis Assessment: Acute pulmonary edema causing hypoxia likely due to cor pulmonale from untreated sleep apnea Diabetes mellitus insulin-dependent Acute renal failure due to diuretics and component of diabetic nephropathy Final Discharge Diagnosis Assessment: Acute pulmonary edema causing hypoxia likely due to cor pulmonale from untreated sleep apnea Diabetes mellitus insulin-dependent Acute renal failure due to diuretics and component of diabetic nephropathy Conclusion Plan Plan: PT Home O2 eval Move to 4th floor or DC depending on timing and ICU bed Review sleep study with Angeilka at [facility] and maintain plan for repeat Friday night as scheduled Follow up with Angelika at [facility] Follow up with Dr. Anderson Restart Home meds check BMP on Friday due to creat and continuing on Lasix as outpt Clinical Quality Measures DVT/VTE Risk/Contraindication: Risk Factor Score Per Nursin RFS Level Per Nursing on Admit: 4+=Very High CHIO ECHAVARRIA DO September 18, 2016 10:22
--- NOTE | 2016-09-18 11:15 | Physical Therapy Evaluation ---
PT Evaluation-General Medical Diagnosis Admission Date September 17, 2016 at 08:00 Medical Diagnosis: weakness Onset Date: September 17, 2016 Therapy Diagnosis Therapy Diagnosis: impaired mobility, endurance Height/Weight Height (Feet): 5 Height (Inches): 2.00 Weight (Pounds): 219 Weight (Ounces): 1.0 Precautions Precautions/Isolations: Standard Precautions Referral Physician: Chio Banuelos DO Reason for Referral: Evaluation/Treatment Medical History Pertinent Medical History: COPD, DM, HTN Additional Medical History neuropathy, peripheral edema, pulmonary edema, sleep apnea, hyperlipidemia Current History patient went to ER with increasing SOB Reviewed History: Yes Social History Home: Single Level Current Living Status: Other Family Entry Into Home: Stairs With Railing PT Steps Into Home: 4 patient's niece lives with her, 2 handrails on steps Prior/Core FIM Prior Level of Function Functional Wisner Measure 0=Not Assessed/NA 4=Minimal Assistance 1=Total Assistance 5=Supervision or Setup 2=Maximal Assistance 6=Modified Wisner 3=Moderate Assistance 7=Complete Wisner Bed Mobility: 7 Transfers (B,C,W/C) (FIM): 7 Gait: 7 PT Evaluation-Current Subjective Patient in bed pre tx, agrees to PT, has low back pain of 4/10. Pt/Family Goals to go back home Objective Patient Orientation: Normal For Age ROM/Strength ROM Lower Extremities WNL Strenght Lower Extremities 4+-5/5 gross bilateral lower extremities Integumentary/Posture Bowel Incontinence: No Bladder Incontinence: No Sensory Vision: Functional Hearing: Functional Sensation Right Lower Extremit: Impaired Sensation Left Lower Extremity: Impaired Transfers Functional Wisner Measure 0=Not Assessed/NA 4=Minimal Assistance 1=Total Assistance 5=Supervision or Setup 2=Maximal Assistance 6=Modified Wisner 3=Moderate Assistance 7=Complete Wisner Transfers (B, C, W/C) (FIM): 5 Scootin Rollin Supine to/from Sit: 6 Sit to/from Stand: 5 Gait Mode of Locomotion: Walk Anticipated Mode of Locomotion: Walk Gait (FIM): 4 Distance: 200' Gait Level of Assist: 4 (CGA) Gait Persons Needed: 1 Gait Assistive Device: None Comments/Gait Description Patient has weak hip musculature and leans from side to side with ambulating, patient fatigues very quickly and needed several standing rest breaks and purse lip breathing, O2 was 94% after ambulation Balance Sitting Static: Normal Sitting Dynamic: Normal Standing Static: Good Standing Dynamic: Good Assessment/Needs Patient has impaired mobility and endurance. She states she will be discharging home today, she will be seen once per day starting today and if she happens to not discharge she will be seen tomorrow. Rehab Potential: Fair PT Dressing Room Attendant Goals Dressing Room Attendant Goals PT Dressing Room Attendant Goals Time Frame: September 25, 2016 Transfers (B,C,W/C) (FIM): 7 Gait (FIM): 7 Distance: 300' Gait Assistive Device: None PT Plan Problem List Problem List: Activity Tolerance, Functional Strength, Safety, Balance, Gait, Transfer Treatment/Plan Treatment Plan: Continue Plan of Care Treatment Plan: Bed Mobility, Education, Functional Activity Kamila, Functional Strength, Gait, Safety, Therapeutic Exercise, Transfers Treatment Duration: September 25, 2016 # of days/week 5-6 Visits Per Week: 5-6 Minutes/Day (M-F): 15-30 Minutes/Day (Sat/Jane): 15-30 Pt/Family Agrees w/Plan: Yes Safety Risks/Education Patient Education: Gait Training, Transfer Techniques, Correct Positioning, Safety Issues Teaching Recipient: Patient Teaching Methods: Demonstration, Discussion Response to Teaching: Reinforcement Needed Discharge Recommendations Plan Patient will perform bed mobility and transfer training, balance and endurance training, gait training, stair training, functional strengthening, and education to improve functional mobility and independence at home. Therapy D/C Recommendations: Home w/ Family Support Time/GCodes Time In: 1050 Time Out: 1105 Total Billed Treatment Time: 15 Total Billed Treatment 1 visit LENCHO MENDEZ PT September 18, 2016 11:15
[2016-09-18] MEDS ORDERED: inSUlin ASPART (NovoLOG) 1 UNIT/0.01 ML (CHARGE PER UNIT) SC SCH ×2 (12:00→20:00)
[2016-09-18] MEDS ORDERED: OMEGA 3 (FISH OIL) 1000 MG CAP PO SCH (12:00)
[2016-09-18] MEDS ORDERED: metFORMIN XR 500 MG (GLUCOPHAGE XR) TAB PO SCH (17:00)
[2016-09-18] MEDS ORDERED: diphenhydrAMINE 25 MG TAB (BENADRYL) PO SCH (21:00)
[2016-09-18] MEDS ORDERED: NON-FORMULARY MEDICATION 1 EA EA (Canagliflozin (Invokana) 100 MG) PO SCH (21:00)
[2016-09-18] MEDS ORDERED: GABAPENTIN 600 MG (NEURONTIN) TAB PO SCH (21:00)
[2016-09-18] MEDS ORDERED: inSUlin DETERMIR 1 UNIT/0.01 ML (LEVEMIR) CHARGE PER UNIT SQ SCH (21:00)
[2016-09-18] MEDS ORDERED: NON-FORMULARY MEDICATION 1 EA EA (Magnesium Oxide (Magnesium) 500 MG) PO SCH (21:00)
[2016-09-19] MEDS ORDERED: LEVOTHYROXINE 100 MCG (LEVOTHROID) TAB PO SCH (06:30)
[2016-09-19] MEDS ORDERED: ASPIRIN E.C. 81 MG (ECOTRIN) TAB PO SCH (09:00)
[2016-09-19] MEDS ORDERED: NON-FORMULARY MEDICATION 1 EA EA (Liraglutide (Victoza 3-Pak) 1.8 MG) SQ SCH (09:00)
== END 2016-09-18 13:25 | disposition home or self-care (01) | DRG 189 ==
LOC: EDUNIT# 06:39 → ER 06:41 → ICU 08:00
PROVIDERS: ADMIT Internal Medicine; ATTEND Internal Medicine
DX: J81.1 Chronic pulmonary edema (principal); I27.81 Cor pulmonale (chronic); N17.9 Acute kidney failure, unspecified; R09.02 Hypoxemia; E11.21 Type 2 diabetes mellitus with diabetic nephropathy; E11.22 Type 2 diabetes mellitus with diabetic chronic kidney disease; I12.9 Hypertensive chronic kidney disease with stage 1 through stage 4 chronic kidney disease, or unspecified chronic kidney disease; N18.9 Chronic kidney disease, unspecified; G47.30 Sleep apnea, unspecified; E03.9 Hypothyroidism, unspecified; F32.9 Major depressive disorder, single episode, unspecified; J44.9 Chronic obstructive pulmonary disease, unspecified; Z79.4 Long term (current) use of insulin
CPT/HCPCS: 36415; 71010; 71020; 80053; 82550; 82553; 82805; 82962; 83735; 83880; 84443; 84484; 85025; 85610; 85730; 93005; 93041; 93306; 93970; 96374; 96375

== ENCOUNTER 2016-09-23 19:25 | Outpatient (CLI) | payer OTHER ==
[~2016-09-23 19:25] MED LIST changes: +ASPI-479 PO; +ATOR40TA70 PO; +Benadryl; +CITA20TA7 PO; +Citalopram; +DIPH25TA29 PO; +FURO-125 PO; +Fish Oil; +GABA-488 PO; +INSU100I14 SQ; +INSU100I29 SQ; +LEVO100T7 PO; +LIRA0.6P3 SQ; +LISI-552 PO; +Levothyroxine; +Lisinopril; +MAGN500C15 PO; +METF500T8 PO; +Magnesium; +OMEG-109 PO; +Victoza
== END 2016-09-24 06:05 | disposition home or self-care (01) ==
LOC: SLEEP 19:25
PROVIDERS: ATTEND Nurse Practitioner Community Health
DX: G47.33 Obstructive sleep apnea (adult) (pediatric) (principal)
CPT/HCPCS: 95811

== ENCOUNTER 2017-02-27 11:14 | Inpatient (IN) | payer OTHER ==
[~2017-02-27] VITALS: Ht 157.5 cm; Wt 109.8 kg
--- OUTSIDE RECORDS SUMMARY | 2017-02-27 11:22 | XMS REPORT ---
Author Author NIKOLAS JACOB [facility] Address [address] [place] [address] Care Team Providers Care Silo Tender Name Role Phone NIKOLAS JACOB Unavailable PROBLEMS Type Condition ICD9-CM Code [id number] Code Onset Dates Condition Status SNOMED Code Problem Nocturnal hypoxemia G47.34 Active 937178422 Problem Diabetes E11.9 Active 039059816 Problem Obstructive sleep apnea hypopnea, severe G47.33 Active 85148791 Problem Hypertriglyceridemia E78.1 Active 540311025 Problem Restless leg G25.81 Active 98786335 Problem Essential hypertension I10 Active 12822580 Problem Hypothyroidism, unspecified E03.9 Active 64854987 Problem Hyperlipidemia, unspecified hyperlipidemia type E78.5 Active 47859850 Problem Neuropathy G62.9 Active 293974767 ALLERGIES No Information SOCIAL HISTORY Never Assessed PLAN OF CARE VITAL SIGNS MEDICATIONS Unknown Medications RESULTS No Results PROCEDURES No Known procedures IMMUNIZATIONS No Known Immunizations MEDICAL (GENERAL) HISTORY Type Description Date Medical History Type II DM Medical History depression Medical History hyperlipidemia Surgical History tonsillectomy Surgical History ganglian cyst removed Surgical History hysterectomy Surgical History b/l carpal tunnel surgery Surgical History b/l cataracts Hospitalization History surgeries Hospitalization History breathing difficulty 2006 Hospitalization History Hypoxia, dyspnea-[facility] 09/17/16
--- OUTSIDE RECORDS SUMMARY | 2017-02-27 11:23 | XMS REPORT ---
Author Author NIKOLAS JACOB [facility] Address [address] [place] [address] Care Team Providers Care Tourism Radio Presenter Name Role Phone NIKOLAS JACOB Unavailable PROBLEMS Type Condition ICD9-CM Code GPI95-OF Code Onset Dates Condition Status SNOMED Code Problem Nocturnal hypoxemia G47.34 Active 509491082 Problem Diabetes E11.9 Active 695807223 Problem Obstructive sleep apnea hypopnea, severe G47.33 Active 00804253 Problem Hypertriglyceridemia E78.1 Active 489746626 Problem Restless leg G25.81 Active 02328050 Problem Essential hypertension I10 Active 74444082 Problem Hypothyroidism, unspecified E03.9 Active 31040933 Problem Hyperlipidemia, unspecified hyperlipidemia type E78.5 Active 57610955 Problem Neuropathy G62.9 Active 640887715 ALLERGIES No Information SOCIAL HISTORY Never Assessed [...]
--- OUTSIDE RECORDS SUMMARY | 2017-02-27 11:24 | XMS REPORT ---
Author Author NIKOLAS JACOB [facility] Address [address] [place] [address] Care Team Providers Care Expanded Duty Dental Assistant Name Role Phone NIKOLAS JACOB Unavailable PROBLEMS Type Condition ICD9-CM Code ZQP10-DG Code Onset Dates Condition Status SNOMED Code Problem Nocturnal hypoxemia G47.34 Active 059192243 Problem Diabetes E11.9 Active 397088828 Problem Obstructive sleep apnea hypopnea, severe G47.33 Active 23086175 Problem Hypertriglyceridemia E78.1 Active 183484461 Problem Restless leg G25.81 Active 50833783 Problem Essential hypertension I10 Active 14393124 Problem Hypothyroidism, unspecified E03.9 Active 93162706 Problem Hyperlipidemia, unspecified hyperlipidemia type E78.5 Active 92235795 Problem Neuropathy G62.9 Active 600621842 ALLERGIES No Information SOCIAL HISTORY Never Assessed PLAN OF CARE VITAL SIGNS MEDICATIONS Medication Instructions Dosage Frequency Start Date End Date Duration Status Lisinopril 20 mg Orally Once a day 1 tablet 24h Jun, 90 days Active RESULTS No Results PROCEDURES No Known procedures [...]
--- OUTSIDE RECORDS SUMMARY | 2017-02-27 11:25 | XMS REPORT ---
Author Author NIKOLAS JACOB [facility] Address [address] [place] [address] Care Team Providers Care Model And Mold Maker Name Role Phone NIKOLAS JACOB Unavailable PROBLEMS Type Condition ICD9-CM Code KSM22-NN Code Onset Dates Condition Status SNOMED Code Problem Nocturnal hypoxemia G47.34 Active 718778037 Problem Diabetes E11.9 Active 324830186 Problem Obstructive sleep apnea hypopnea, severe G47.33 Active 33340063 Problem Hypertriglyceridemia E78.1 Active 963125772 Problem Restless leg G25.81 Active 95838488 Problem Essential hypertension I10 Active 71695853 Problem Hypothyroidism, unspecified E03.9 Active 65207582 Problem Hyperlipidemia, unspecified hyperlipidemia type E78.5 Active 56983666 Problem Neuropathy G62.9 Active 288558893 ALLERGIES Substance Reaction Event Type Date Status Codeine Unknown Drug Allergy May, Active SOCIAL HISTORY No smoking Hx information available PLAN OF CARE Activity Details Follow Up 2 Months Reason:DM VITAL SIGNS Height 60 in 2016-05-30 Weight 223.3 lbs 2016-05-30 Temperature 98.3 degrees Fahrenheit 2016-05-30 Heart Rate 78 bpm 2016-05-30 Respiratory Rate 22 2016-05-30 Oximetry 96 % 2016-05-30 BMI 43.61 kg/m2 2016-05-30 Blood pressure systolic 148 mmHg 2016-05-30 Blood pressure diastolic 72 mmHg 2016-05-30 MEDICATIONS Medication Instructions Dosage Frequency Start Date End Date Duration Status NovoLog Flexpen 100 UNIT/ML inject 20 Units by Subcutaneous route before meals 3 times per day Nov, Active MetFORMIN HCl ER 500 MG TAKE TWO TABLETS BY MOUTH TWICE DAILY 12h 30 Active Aspirin Adult Low Strength 81 MG Orally Once a day 1 tablet 24h Active Levemir Flexpen 100 unit/mL (3 mL) subcutaneously 2 times a day Inject 61 units in the AM, and 56 units in PM 12h Nov, 90 days Active Invokana 100 MG TAKE ONE TABLET BY MOUTH ONCE DAILY 30 Active Lipitor 40 mg Orally Once a day 1 tablet 24h Apr, Active Neurontin 300 MG TAKE TWO TABLETS BY MOUTH TWICE DAILY 30 Active Citalopram Hydrobromide 20 MG TAKE ONE TABLET BY MOUTH ONCE DAILY 90 Active Victoza 0.6 mg/0.1 mL (18 mg/3 mL) Subcutaneous Once a day Inject 1.8 mg 24h 16 Dec, 2011 90 days Active BD Ultra-Fine Pen [place] 29G X 12.7MM as directed Oct, Active Lasix 40 mg Orally Once a day 1 tablet 24h May, 14 days Active Benadryl 25 MG Orally every 6 hrs 1 capsule as needed 6h Active Potassium Chloride Aleah ER 20 MEQ Orally Once a day 1 tablet with food 24h May, Jun, 14 days Active Tessalon Perles 100 mg Orally Three times a day 1 capsule as needed 8h May, Jun, 10 days Active Fish Oil 1,000 mg 4 Capsule 2 times per day 4,000mg daily. Jul, Active Levothyroxine Sodium 100 MCG Orally Once a day 1 tablet 24h 90 Active RESULTS Name Result Date Reference Range UA LONG DIP (IN HOUSE) 2016-05-30 Lot # [id number] Exp date 01/2017 Clarity clear Color yellow Odor none GLU 2+ YUSUF negative KET negative SG 1.010 BLO 1+ pH 5.5 Protein negative URO 0.2 NIT negative OPHELIA negative Lot # Exp date Xray : Chest (IN HOUSE) 2016-05-30 Echo 2D 2016-06-18 PROCEDURES Procedure Date Ordered Related Diagnosis Body Site SLEEP STUDY ([facility]) 2016-05-30 Abnormal CHEST X-RAY May 30, 2016 URINALYSIS, AUTO, W/O SCOPE May 30, 2016 MEASURE BLOOD OXYGEN LEVEL May 30, 2016 Office Visit, Est Pt., Level 3 May 30, 2016 IMMUNIZATIONS No Known Immunizations
--- OUTSIDE RECORDS SUMMARY | 2017-02-27 11:25 | XMS REPORT ---
Author Author NIKOLAS JACOB [facility] Address [address] [place] [address] Care Team Providers Care Fruit Buyer Name Role Phone NIKOLAS JACOB Unavailable PROBLEMS Type Condition ICD9-CM Code IWL36-GO Code Onset Dates Condition Status SNOMED Code Problem Nocturnal hypoxemia G47.34 Active 870379452 Problem Diabetes E11.9 Active 525711395 Problem Obstructive sleep apnea hypopnea, severe G47.33 Active 28223919 Problem Hypertriglyceridemia E78.1 Active 367273357 Problem Restless leg G25.81 Active 45114061 Problem Essential hypertension I10 Active 47543411 Problem Hypothyroidism, unspecified E03.9 Active 02466916 Problem Hyperlipidemia, unspecified hyperlipidemia type E78.5 Active 72938911 Problem Neuropathy G62.9 Active 755008250 ALLERGIES Unknown Allergies SOCIAL HISTORY No smoking Hx information available PLAN OF CARE VITAL SIGNS MEDICATIONS Unknown Medications RESULTS No Results PROCEDURES No Known procedures IMMUNIZATIONS No Known Immunizations
--- OUTSIDE RECORDS SUMMARY | 2017-02-27 11:25 | XMS REPORT ---
Author Author NIKOLAS JACOB [facility] Address [address] [place] [address] Care Team Providers Care B2B Managed Service Sales Exec Name Role Phone NIKOLAS JACOB Unavailable PROBLEMS Type Condition ICD9-CM Code LYZ35-MR Code Onset Dates Condition Status SNOMED Code Problem Nocturnal hypoxemia G47.34 Active 991761218 Problem Diabetes E11.9 Active 668113336 Problem Obstructive sleep apnea hypopnea, severe G47.33 Active 20711004 Problem Hypertriglyceridemia E78.1 Active 356948839 Problem Restless leg G25.81 Active 05506437 Problem Neuropathy G62.9 Active 392374380 Problem Hypothyroidism, unspecified E03.9 Active 45424097 Problem Essential hypertension I10 Active 08850138 Problem Hyperlipidemia, unspecified hyperlipidemia type E78.5 Active 31166543 ALLERGIES Substance Reaction Event Type Date Status Codeine Unknown Drug Allergy Apr, Active SOCIAL HISTORY No smoking Hx information available PLAN OF CARE Activity Details Follow Up prn Reason: VITAL SIGNS Height 60 in 2016-04-22 Weight 216.6 lbs 2016-04-22 Temperature 98.3 degrees Fahrenheit 2016-04-22 Heart Rate 72 bpm 2016-04-22 Respiratory Rate 16 2016-04-22 BMI 42.30 kg/m2 2016-04-22 Blood pressure systolic 110 mmHg 2016-04-22 Blood pressure diastolic 70 mmHg 2016-04-22 MEDICATIONS Medication Instructions Dosage Frequency Start Date End Date Duration Status Levothyroxine Sodium 100 MCG Orally Once a day 1 tablet 24h 30 Active MetFORMIN HCl ER 500 MG TAKE TWO TABLETS BY MOUTH TWICE DAILY 12h 30 Active Levemir Flexpen 100 unit/mL (3 mL) subcutaneously 2 times a day Inject 61 units in the AM, and 56 units in PM 12h Nov, 90 days Active Fish Oil 1,000 mg 4 Capsule 2 times per day 4,000mg daily. Jul, Active Aspirin Adult Low Strength 81 MG Orally Once a day 1 tablet 24h Active Citalopram Hydrobromide 20 MG TAKE ONE TABLET BY MOUTH ONCE DAILY 90 Active BD Ultra-Fine Pen [place] 29G X 12.7MM as directed Oct, Active Invokana 100 MG TAKE ONE TABLET BY MOUTH ONCE DAILY 30 Active NovoLog Flexpen 100 UNIT/ML inject 20 Units by Subcutaneous route before meals 3 times per day Nov, Active Neurontin 300 MG TAKE TWO TABLETS BY MOUTH TWICE DAILY 30 Active Victoza 0.6 mg/0.1 mL (18 mg/3 mL) Subcutaneous Once a day Inject 1.8 mg 24h Dec, 90 days Active Benadryl 25 MG Orally every 6 hrs 1 capsule as needed 6h Active Lipitor 40 mg Orally Once a day 1 tablet 24h Apr, Active RESULTS Name Result Date Reference Range A1C (IN HOUSE) 2016-04-22 A1C IN HOUSE 7.0 4.3 - 5.6 % Previous A1c 6.2 Lot [id number] Exp date 03/2017 PROCEDURES Procedure Date Ordered Related Diagnosis Body Site GLYCATED HEMOGLOBIN TEST Apr 22, 2016 Office Visit, Est Pt., Level 3 Apr 22, 2016 IMMUNIZATIONS No Known Immunizations
--- OUTSIDE RECORDS SUMMARY | 2017-02-27 11:25 | XMS REPORT ---
Author Author NIKOLAS JACOB [facility] Address [address] [place] [address] Care Team Providers Care Mortising Machine Operator Name Role Phone NIKOLAS JACOB Unavailable PROBLEMS Type Condition ICD9-CM Code JIU42-MD Code Onset Dates Condition Status SNOMED Code Problem Nocturnal hypoxemia G47.34 Active 604648209 Problem Hypothyroidism, unspecified E03.9 Active 68076619 Problem Diabetes E11.9 Active 433903592 Problem Obstructive sleep apnea hypopnea, severe G47.33 Active 63155192 Problem Reactive depression F32.9 Active 77822969 Problem Hypertriglyceridemia E78.1 Active 112263786 Problem Essential hypertension I10 Active 34938063 Problem Hyperlipidemia, unspecified hyperlipidemia type E78.5 Active 07219521 Problem Restless leg G25.81 Active 14508141 Problem Neuropathy G62.9 Active 780855747 ALLERGIES No Information SOCIAL HISTORY Never Assessed PLAN OF CARE VITAL SIGNS MEDICATIONS No Known Medications RESULTS No Results PROCEDURES No Known procedures IMMUNIZATIONS No Known Immunizations MEDICAL (GENERAL) HISTORY Type Description Date Medical History Type II DM Medical History depression Medical History hyperlipidemia Surgical History tonsillectomy Surgical History ganglian cyst removed Surgical History hysterectomy Surgical History b/l carpal tunnel surgery Surgical History b/l cataracts Hospitalization History surgeries Hospitalization History breathing difficulty 2006 Hospitalization History Hypoxia, dyspnea-[facility] 09/17/16
--- NOTE | 2017-02-27 11:39 | ED Upper Extremity ---
General Chief Complaint: Trauma-Non Activation Stated Complaint: RT WRIST INJ Nursing Triage Note: PT CO OF R WRIST PAIN FROM FALL DURING NITE, STATES HAD + LOC UNKNOWN LENTH OF TIME. STATES WAS HAVING BRYAN HORSE SIT UP ON EDGE OF BED AND PASSED OUT. PT HAS PAIN AND DEFORMITY OF R WRIST AREA Nursing Sepsis Screen: No Definite Risk Source: patient, family Exam Limitations: no limitations History of Present Illness Time seen by provider: 11:36 Initial Comments 66-year-old white female presents after she had a single episode when she was trying to get out of bed quickly due to a charley horse in her leg. The patient awoke with pain and deformity in her right wrist. The patient also had discomfort over her nose and had evidence of a self-limited epistaxis. The patient denies associated neck pain or paresthesias. She has no pain in her chest abdomen or pelvis. The patient has had somewhat similar episodes in the past from hypoglycemia from her diabetes. The patient when she checked her glucose this morning noted that it was low at 75. The patient denies associated fever, chills, dysuria, frequency, nausea, vomiting, or diarrhea. Allergies and Home Medications Allergies Coded Allergies: codeine (Unverified Allergy, Severe, ITCHING, 09/02/14) Home Medications Aspirin 81 Mg Tablet.dr, 81 MG PO DAILY, (Reported) Atorvastatin Calcium 40 Mg Tablet, 40 MG PO HS, (Reported) Canagliflozin 100 Mg Tablet, 100 MG PO HS, (Reported) Citalopram Hydrobromide 20 Mg Tablet, 20 MG PO DAILY, (Reported) Diphenhydramine HCl 25 Mg Tablet, 25 MG PO BID, (Reported) Furosemide 20 Mg Tablet, 20 MG PO DAILY, #30 Prescribed by: MIGEL ECHAVARRIA on 09/18/16 1013 Gabapentin 300 Mg Capsule, 600 MG PO BID, (Reported) TAKES 2 (300 MG) CAPSULES Insulin Aspart 300 Units/3 Ml Solution, 20 UNITS SQ BID@0800,2000, (Reported) Insulin Aspart 300 Units/3 Ml Solution, 10 UNITS SQ DAILY@1200, (Reported) Insulin Detemir 100 Unit/1 Ml Insuln.pen, 60 UNITS SQ BID, (Reported) Levothyroxine Sodium 100 Mcg Tablet, 100 MCG PO DAILY, (Reported) Liraglutide 0.6 Mg/0.1 Ml Pen.injctr, 1.8 MG SQ DAILY, (Reported) Magnesium Oxide 500 Mg Capsule, 500 MG PO BID, (Reported) [place]-3 Fatty Acids/Fish Oil 1 Each Capsule, 2,400 MG PO BID, (Reported) TAKES 2 (1,200 MG) CAPSULES Constitutional: No chills, No fever EENTM: No hearing loss Respiratory: No cough Cardiovascular: No chest pain Gastrointestinal: No abdominal pain, No diarrhea, No vomiting Genitourinary: No dysuria, No frequency Musculoskeletal: No back pain, joint pain (right wrist) Skin: No change in color Psychiatric/Neurological: No Symptoms Reported Past Idcrcmo-Pejvgk-Daajgc Hx Patient Social History Alcohol Use: Denies Use Recreational Drug Use: No Smoking Status: Former Smoker Former Smoker, Quit: May 05, 1991 Recent Foreign Travel: No Contact w/Someone Who Travel: No Recent Infectious Disease Expo: No Recent Hopitalizations: No Physical Abuse: No Sexual Abuse: No Immunizations Up To Date Tetanus Booster (TDap): Unknown Date of Pneumonia Vaccine: Feb 02, 2015 Seasonal Allergies Seasonal Allergies: No Surgeries History of Surgeries: Yes (HYST/BSO; BILATERAL CARPAL TUNNEL, RIGHT WRIST GANGLION CYST) Surgeries: Adenoidectomy, Hysterectomy, Oophorectomy, Orthopedic, Tonsillectomy Respiratory History of Respiratory Disorde: Yes (under current testing) Respiratory Disorders: Sleep Apnea Currently Using CPAP: Yes Cardiovascular History of Cardiac Disorders: Yes Cardiac Disorders: Hypertension Neurological History of Neurological Disord: Yes Neurological Disorders: Neuropathy Reproductive System Hx Reproductive Disorders: No Sexually Transmitted Disease: No LEDGER CLERK History: Hysterectomy Genitourinary History of Genitourinary Disor: No Gastrointestinal History of Gastrointestinal Di: No Musculoskeletal History of Musculoskeletal Dis: Yes (S/P CARPAL TUNNEL REPAIR BILATERALLY) Endocrine History of Endocrine Disorders: Yes (DM Type II) Endocrine Disorders: Diabetes, Insulin dep, Hypothyroidsim HEENT History of HEENT Disorders: No (CATARACT REMOVED BILAT) HEENT Disorders: Cataract Cancer History of Cancer: No Psychosocial History of Psychiatric Problem: Yes Behavioral Health Disorders: Depression Suicide Risk Score: 0 Integumentary History of Skin or Integumenta: No Blood Transfusions History of Blood Disorders: No Adverse Reaction to a Blood Tr: No Reviewed Nursing Assessment Reviewed/Agree w Nursing PMH: Yes Family Medical History Family Medial History: Alzheimer's disease 19 MOTHER Diabetes mellitus G8 BROTHER FH: anemia G8 SISTER FH: congestive heart failure 19 FATHER FH: emphysema 19 FATHER 19 MOTHER G8 SISTER FH: lung cancer G8 SISTER FH: sleep apnea G8 SISTER Heart murmur 19 FATHER Hypertension G8 BROTHER Psychosocial problem G8 SISTER Physical Exam Vital Signs Vital Sign - Last 12Hours 02/27/17 11:20 Temp 98.1 Pulse 78 Resp 18 B/P (MAP) 145/56 Pulse Ox 96 Capillary Refill : Less Than 3 Seconds General Appearance: WD/WN, mild distress HEENT: normal ENT inspection, other (there is tenderness over the nose. There is no significant swelling. There is no fresh epistaxis. Remainder of ENT exam was unremarkable.) Neck: non-tender, full range of motion, supple Cardiovascular: normal peripheral pulses, regular rate, rhythm, no edema, no murmur Respiratory: chest non-tender, lungs clear, normal breath sounds, no respiratory distress, no accessory muscle use Gastrointestinal: normal bowel sounds, non tender, soft Back: normal inspection Shoulder: normal inspection, non-tender, no evidence of injury Elbow/Forearm: normal inspection, non-tender Wrist: Yes deformity (of the right wrist.) Hand: non-tender, no evidence of injury Neurologic/Tendon: normal sensation, normal motor functions, normal tendon functions Neurologic/Psychiatric: no motor/sensory deficits, alert, normal mood/affect, oriented x 3 Skin: normal color, warm/dry Progress/Results/Core Measures Results/Orders Lab Results Laboratory Tests Test 02/27/17 11:40 Range/Units White Blood Count 10.4 4.3-11.0 10^3/uL Red Blood Count 3.93 L 4.35-5.85 10^6/uL Hemoglobin 11.8 11.5-16.0 G/DL Hematocrit 37 35-52 % Mean Corpuscular Volume 94 80-99 FL Mean Corpuscular Hemoglobin 30 25-34 PG Mean Corpuscular Hemoglobin Concent 32 32-36 G/DL Red Cell Distribution Width 14.3 10.0-14.5 % Platelet Count 235 130-400 10^3/uL Mean Platelet Volume 9.7 7.4-10.4 FL Neutrophils (%) (Auto) 82 H 42-75 % Lymphocytes (%) (Auto) 10 L 12-44 % Monocytes (%) (Auto) 7 0-12 % Eosinophils (%) (Auto) 1 0-10 % Basophils (%) (Auto) 1 0-10 % Neutrophils # (Auto) 8.5 H 1.8-7.8 X 10^3 Lymphocytes # (Auto) 1.0 1.0-4.0 X 10^3 Monocytes # (Auto) 0.7 0.0-1.0 X 10^3 Eosinophils # (Auto) 0.1 0.0-0.3 10^3/uL Basophils # (Auto) 0.1 0.0-0.1 10^3/uL Prothrombin Time 12.7 12.2-14.7 SEC INR Comment 0.9 0.8-1.4 Activated Partial Thromboplast Time 29 24-35 SEC Sodium Level 136 135-145 MMOL/L Potassium Level 5.0 3.6-5.0 MMOL/L Chloride Level 101 98-107 MMOL/L Carbon Dioxide Level 27 21-32 MMOL/L Anion Gap 8 5-14 MMOL/L Blood Urea Nitrogen 29 H 7-18 MG/DL Creatinine 1.45 H 0.60-1.30 MG/DL Estimat Glomerular Filtration Rate 36 BUN/Creatinine Ratio 20 Glucose Level 66 L 70-105 MG/DL Hemoglobin A1c 6.9 H 4.5-6.2 % Calcium Level 9.5 8.5-10.1 MG/DL Magnesium Level 1.8 1.8-2.4 MG/DL Total Bilirubin 0.3 0.1-1.0 MG/DL Aspartate Amino Transf (AST/SGOT) 30 5-34 U/L Alanine Aminotransferase (ALT/SGPT) 9 0-55 U/L Alkaline Phosphatase 75 40-136 U/L Myoglobin 1150.2 H 10.0-92.0 NG/ML Troponin I < 0.30 <0.30 NG/ML Total Protein 8.1 6.4-8.2 GM/DL Albumin 3.6 3.2-4.5 GM/DL My Orders Orders - ZAINAB CAGLE MD Ct Head Wo (02/27/17 11:39) Wrist, Right, 3 Views Or More (02/27/17 11:39) Cbc With Automated Diff (02/27/17 11:40) Magnesium (02/27/17 11:40) Chest 1 View, Ap/Pa Only (02/27/17 11:40) Ekg Tracing (02/27/17 11:40) Cardiac Profile 1 (02/27/17 11:40) Comprehensive Metabolic Panel (02/27/17 11:40) Myoglobin Serum (02/27/17 11:40) Protime With Inr (02/27/17 11:40) Partial Thromboplastin Time (02/27/17 11:40) O2 (02/27/17 11:40) Monitor-Rhythm Ecg Trace Only (02/27/17 11:40) Lipid Panel (02/28/17 06:00) Saline Lock/Iv-Start (02/27/17 11:40) Fentanyl Injection (Sublimaze Injection (02/27/17 11:45) Hemoglobin A1c (02/27/17 11:42) Medications Given in ED Current Medications Medications Dose Ordered Sig/Jaleel Route Start Time Stop Time Status Last Admin Dose Admin Fentanyl Citrate 50 mcg ONCE ONCE IVP 02/27/17 11:45 02/27/17 11:46 DC 02/27/17 11:53 50 MCG Vital Signs/I&O Vital Sign - Last 12Hours 02/27/17 11:20 Temp 98.1 Pulse 78 Resp 18 B/P (MAP) 145/56 Pulse Ox 96 Blood Pressure Mean: 85 Progress Note : Time: 13:13 Progress Note X-ray of the right wrist demonstrated a comminuted displaced intra-articular fracture of the right distal radius. The patient's right wrist was splinted. CT of the head was unremarkable. The patient's EKG demonstrated a normal sinus rhythm. No acute current of injury was noted. The patient's laboratory evaluation demonstrated a glucose in the 60s. Troponin was normal. Departure Communication (Admissions) Time/Spoke to Admitting Phy: 13:[address] Galindo Time/Spoke to Consulting Phy: 13:15 Communication/Consulting Dr. Brown and Dr. Patino Impression Impression: Primary Impression: Syncope Qualified Codes: R55 - Syncope and collapse Additional Impressions: Closed head injury Qualified Codes: S09.90XA - Unspecified injury of head, initial encounter Fracture of right wrist Qualified Codes: S62.101A - Fracture of unspecified carpal bone, right wrist, initial encounter for closed fracture Disposition: ADMITTED INPATIENT Condition: Improved Admissions Decision to Admit Reason: Admit from ER (Trauma) Decision to Admit/Date: Feb 27, 2017 Time/Decision to Admit Time: 13:18 Departure-Patient Inst. [place]: [facility] [place] Primary Care Physician ZAINAB CAGLE MD Feb 27, 2017 11:39
[2017-02-27] MEDS ORDERED: fentaNYL INJECTION 100 MCG/2 ML AMP IVP ONE ×2 (11:45→13:45)
[2017-02-27 11:47] LABS: BASOPHILS # (AUTO) 0.1 10^3/uL (0.0-0.1); BASOPHILS % (AUTO) 1 % (0-10); EOSINOPHILS # (AUTO) 0.1 10^3/uL (0.0-0.3); EOSINOPHILS % (AUTO) 1 % (0-10); LYMPHOCYTES % (AUTO) 10 % (12-44); MEAN CORPUSCULAR HEMOGLOBIN 30 PG (25-34); MEAN CORPUSCULAR HGB CONC 32 G/DL (32-36); MEAN CORPUSCULAR VOLUME 94 FL (80-99); MEAN PLATELET VOLUME 9.7 FL (7.4-10.4); MONOCYTES # (AUTO) 0.7 X 10^3 (0.0-1.0); MONOCYTES % (AUTO) 7 % (0-12); NEUTROPHILS # (AUTO) 8.5 X 10^3 (1.8-7.8); NEUTROPHILS % (AUTO) 82 % (42-75); PLATELET COUNT 235 10^3/uL (130-400); RED BLOOD COUNT 3.93 10^6/uL (4.35-5.85); RED CELL DISTRIBUTION WIDTH 14.3 % (10.0-14.5); WHITE BLOOD COUNT 10.4 10^3/uL (4.3-11.0)
[2017-02-27 12:04] LABS: INR 0.9 (0.8-1.4); PROTHROMBIN TIME PATIENT 12.7 SEC (12.2-14.7)
[2017-02-27 12:05] LABS: ALANINE AMINOTRANSFERASE 9 U/L (0-55); ALBUMIN 3.6 GM/DL (3.2-4.5); ANION GAP 8 MMOL/L (5-14); ASPARTATE AMINO TRANSFERASE 30 U/L (5-34); BILIRUBIN,TOTAL 0.3 MG/DL (0.1-1.0); BLOOD UREA NITROGEN 29 MG/DL (7-18); BUN/CREATININE RATIO 20; CALCIUM 9.5 MG/DL (8.5-10.1); CARBON DIOXIDE 27 MMOL/L (21-32); CHLORIDE 101 MMOL/L (98-107); CREATININE SERUM 1.45 MG/DL (0.60-1.30); GFR ESTIMATED 36; GLUCOSE 66 MG/DL (70-105); MAGNESIUM 1.8 MG/DL (1.8-2.4); SODIUM 136 MMOL/L (135-145); TOTAL PROTEIN 8.1 GM/DL (6.4-8.2)
[2017-02-27 12:13] LABS: MYOGLOBIN SERUM 1150.2 NG/ML (10.0-92.0)
[2017-02-27] MEDS ORDERED: NS IV 1000 ML 1,000 ML IV ONE (12:35)
--- NOTE | 2017-02-27 12:47 | Diagnostic Imaging Report ---
INDICATION: Right wrist pain from fall during the night, positive loss of consciousness for unknown time, passed out while sitting the edge of the bed. FINDINGS: Frontal view of the chest demonstrates the lungs to be clear. The heart, mediastinum, pulmonary vascularity are normal. There is some calcification of the aorta. IMPRESSION: There are no acute findings. Dictated by: Dictated on workstation # [id number]
--- NOTE | 2017-02-27 12:49 | Diagnostic Imaging Report ---
CLINICAL INDICATION: Patient status post fall, having dizziness. EXAM: Axial CT scan of the brain performed without IV contrast. COMPARISON: None. FINDINGS: There is no evidence of acute cerebral infarct, intracranial hemorrhage, or gross mass effect. There are patchy areas of low-attenuation white matter changes in both cerebral hemispheres, likely representing chronic small-vessel ischemic disease. There is normal cleary-white matter distinction. The brain parenchymal volume appears appropriate for patient's age. There is no significant midline shift or herniation. There is no evidence of hydrocephalus. The basal cisterns are unremarkable. The skull, extracranial soft tissue, and orbits are unremarkable. There is mild mucosal thickening involving both maxillary sinuses. IMPRESSION: Mild paranasal sinus disease. Otherwise, unremarkable CT scan of the brain for age. Dictated by: Dictated on workstation # [id number]
--- NOTE | 2017-02-27 12:51 | Diagnostic Imaging Report ---
INDICATION: Wrist pain. COMPARISON: None available. TECHNIQUE: 3 views of the right wrist. FINDINGS: There is an acute, mildly comminuted fracture of the distal radial metaphysis and epiphysis. The distal fracture fragment has dorsal angulation and displacement. Distal radial articular surface is posteriorly angulated by approximately 25 degrees. There does appear to be a fracture line extending into the radiocarpal joint. It is difficult to assess if there is involvement of the distal radioulnar joint on this exam. The wrist has proximally migrated due to the impacted and displaced nature of the distal radial fracture. This results in severe ulnar positive variance. IMPRESSION: 1. Acute, comminuted and dorsally displaced fracture of the distal radius with intra-articular extension into the radiocarpal joint. 2. Marked ulnar positive variance due to proximal migration of the carpus. Dictated by: Dictated on workstation # [id number]
[2017-02-27] MEDS ORDERED: CATHETER FLUSH 10 ML SYR IV PRN (14:15)
[2017-02-27] MEDS: ACETAMINOPHEN 500 MG TAB (TYLENOL) PO PRN (14:27)
[2017-02-27] MEDS ORDERED: INFLUENZA TRIvalent 2017-2018 0.5 ML/45 MCG SYR IM ONE (15:00)
[2017-02-27] MEDS ORDERED: LISI-552 PO (15:11)
[2017-02-27] MEDS ORDERED: METF500T8 PO (15:11)
[2017-02-27] MEDS ORDERED: INSU100I14 SQ (15:11)
[2017-02-27] MEDS ORDERED: PIOG45TA7 PO (15:20)
[2017-02-27 15:30] VITALS: BP 175/75
[2017-02-27] MEDS: fentaNYL INJECTION 100 MCG/2 ML AMP IV PRN ×2 (16:55→20:43)
--- NOTE | 2017-02-27 19:30 | Consultation ---
History of Present Illness History of Present Illness Patient Consulted On(suki/time) 02/27/17 19:24 Date Seen by Provider: Feb 27, 2017 Time Seen by Provider: 19:20 History of Present Illness 66-year-old white female presents after she had a syncopal episode when she was trying to get out of bed too quickly. When she regained consciousness, she states she had excruciating pain in her right wrist and deformity around the wrist. She denies any other pain in her other extremities. The patient has had similar episodes in the past from hypoglycemia secondary to her diabetes. The patient states her glucose was low at 75 upon checking it this morning. The patient denies associated fever, chills, dysuria, frequency, nausea, vomiting, or diarrhea. Allergies and Home Medications Allergies Coded Allergies: codeine (Unverified Allergy, Severe, ITCHING, 09/02/14) Home Medications Aspirin 81 Mg Tablet.dr, 81 MG PO DAILY, (Reported) Atorvastatin Calcium 40 Mg Tablet, 40 MG PO HS, (Reported) Citalopram Hydrobromide 20 Mg Tablet, 40 MG PO DAILY, (Reported) Diphenhydramine HCl 25 Mg Tablet, 25 MG PO BID, (Reported) Gabapentin 300 Mg Capsule, 600 MG PO BID, (Reported) TAKES 2 (300 MG) CAPSULES Insulin Aspart 300 Units/3 Ml Solution, 30 UNITS SQ 1200,1730, (Reported) DOES NOT USE IF BLOOD SUGAR IS BELOW 90 Insulin Aspart 300 Units/3 Ml Solution, 35 UNITS SQ 0800, (Reported) DOES NOT USE IF BLOOD SUGAR IS BELOW 90 Insulin Detemir 100 Unit/1 Ml Insuln.pen, 60 UNITS SQ BID, (Reported) Levothyroxine Sodium 100 Mcg Tablet, 100 MCG PO DAILY, (Reported) Liraglutide 0.6 Mg/0.1 Ml Pen.injctr, 1.8 MG SQ HS, (Reported) Lisinopril 20 Mg Tablet, 20 MG PO DAILY, (Reported) Magnesium Oxide 500 Mg Capsule, 500 MG PO BID, (Reported) Metformin HCl 500 Mg Tab.er.24h, 500 MG PO BID, (Reported) [place]-3 Fatty Acids/Fish Oil 1 Each Capsule, 2,400 MG PO BID, (Reported) TAKES 2 (1,200 MG) CAPSULES Pioglitazone HCl 45 Mg Tablet, 45 MG PO HS, (Reported) Past Dihgdfb-Vowspd-Mfsksa Hx Patient Social History Alcohol Use: Denies Use Recreational Drug Use: No Smoking Status: Former Smoker Former Smoker, Quit: May 05, 1991 Recent Foreign Travel: No Contact w/Someone Who Travel: No Recent Infectious Disease Expo: No Recent Hopitalizations: No Physical Abuse: No Sexual Abuse: No Immunizations Up To Date Tetanus Booster (TDap): Unknown Date of Pneumonia Vaccine: Feb 02, 2015 Seasonal Allergies Seasonal Allergies: No Surgeries History of Surgeries: Yes (HYST/BSO; BILATERAL CARPAL TUNNEL, RIGHT WRIST GANGLION CYST) Surgeries: Adenoidectomy, Hysterectomy, Oophorectomy, Orthopedic, Tonsillectomy Respiratory History of Respiratory Disorde: Yes (under current testing) Respiratory Disorders: Sleep Apnea Currently Using CPAP: Yes Cardiovascular History of Cardiac Disorders: Yes Cardiac Disorders: Hypertension Neurological History of Neurological Disord: Yes Neurological Disorders: Neuropathy Reproductive System Hx Reproductive Disorders: No Sexually Transmitted Disease: No 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 Genitourinary History of Genitourinary Disor: No Gastrointestinal History of Gastrointestinal Di: Yes (gerd once in a while ) Gastrointestinal Disorders: Gastroesophageal Reflux Musculoskeletal History of Musculoskeletal Dis: Yes (S/P CARPAL TUNNEL REPAIR BILATERALLY) Endocrine History of Endocrine Disorders: Yes (DM Type II) Endocrine Disorders: Diabetes, Insulin dep, Hypothyroidsim HEENT History of HEENT Disorders: No (CATARACT REMOVED BILAT) HEENT Disorders: Cataract Cancer History of Cancer: No Psychosocial History of Psychiatric Problem: Yes Behavioral Health Disorders: Depression Suicide Risk Score: 0 Integumentary History of Skin or Integumenta: No Blood Transfusions History of Blood Disorders: No Adverse Reaction to a Blood Tr: No Reviewed Nursing Assessment Reviewed/Agree w Nursing PMH: Yes Family Medical History Family Medial History: Alzheimer's disease 19 MOTHER Diabetes mellitus G8 BROTHER FH: anemia G8 SISTER FH: congestive heart failure 19 FATHER FH: emphysema 19 FATHER 19 MOTHER G8 SISTER FH: lung cancer G8 SISTER FH: sleep apnea G8 SISTER Heart murmur 19 FATHER Hypertension G8 BROTHER Psychosocial problem G8 SISTER Physical Exam-General Problems Physical Exam Vital Signs Vital Sign - Last 12Hours 02/27/17 11:20 Temp 98.1 Pulse 78 Resp 18 B/P (MAP) 145/56 Pulse Ox 96 Capillary Refill : Less Than 3 SecondsLess Than 3 Seconds Assessment/Plan Assessment/Plan Admission Diagnosis/Plan Dx: Comminuted, displaced fracture of the right distal radius with intra- articular extension Plan: ORIF Right Wrist Clinical Quality Measures DVT/VTE Risk/Contraindication: Risk Factor Score Per Nursin RFS Level Per Nursing on Admit: 3=JENI Sexton APRN Feb 27, 2017 19:30
[2017-02-27] MEDS: oxyCODONE/APAP 5/325MG (PERCOCET 5) TABLET PO PRN ×2 (19:34→23:51)
[2017-02-27 20:00] VITALS: BP 144/76
[2017-02-27] MEDS: CATHETER FLUSH 10 ML SYR IV SCH (21:01)
[2017-02-28] VITALS: BP 153/71
[2017-02-28] MEDS: fentaNYL INJECTION 100 MCG/2 ML AMP IV PRN ×3 (00:53→21:45)
[2017-02-28 04:00] VITALS: BP 138/78
[2017-02-28] MEDS: oxyCODONE/APAP 5/325MG (PERCOCET 5) TABLET PO PRN (04:17)
[2017-02-28] MEDS: CATHETER FLUSH 10 ML SYR IV SCH ×3 (05:51→20:17)
[2017-02-28 07:16] LABS: BASOPHILS # (AUTO) 0.1 10^3/uL (0.0-0.1); BASOPHILS % (AUTO) 1 % (0-10); EOSINOPHILS # (AUTO) 0.4 10^3/uL (0.0-0.3); EOSINOPHILS % (AUTO) 3 % (0-10); LYMPHOCYTES # (AUTO) 1.9 X 10^3 (1.0-4.0); LYMPHOCYTES % (AUTO) 16 % (12-44); MEAN CORPUSCULAR HEMOGLOBIN 30 PG (25-34); MEAN CORPUSCULAR HGB CONC 32 G/DL (32-36); MEAN CORPUSCULAR VOLUME 95 FL (80-99); MEAN PLATELET VOLUME 10.2 FL (7.4-10.4); MONOCYTES # (AUTO) 1.2 X 10^3 (0.0-1.0); MONOCYTES % (AUTO) 10 % (0-12); NEUTROPHILS # (AUTO) 8.2 X 10^3 (1.8-7.8); NEUTROPHILS % (AUTO) 70 % (42-75); PLATELET COUNT 260 10^3/uL (130-400); RED BLOOD COUNT 3.63 10^6/uL (4.35-5.85); RED CELL DISTRIBUTION WIDTH 14.7 % (10.0-14.5); WHITE BLOOD COUNT 11.8 10^3/uL (4.3-11.0)
[2017-02-28 07:39] LABS: ALANINE AMINOTRANSFERASE 8 U/L (0-55); ALBUMIN 3.5 GM/DL (3.2-4.5); ANION GAP 8 MMOL/L (5-14); ASPARTATE AMINO TRANSFERASE 38 U/L (5-34); BILIRUBIN,TOTAL 0.4 MG/DL (0.1-1.0); BLOOD UREA NITROGEN 33 MG/DL (7-18); BUN/CREATININE RATIO 15; CALCIUM 8.9 MG/DL (8.5-10.1); CARBON DIOXIDE 25 MMOL/L (21-32); CHLORIDE 101 MMOL/L (98-107); CHOLESTEROL 170 MG/DL (< 200); CREATININE SERUM 2.17 MG/DL (0.60-1.30); DIRECT LDL 104 MG/DL (1-129); GFR ESTIMATED 23; GLUCOSE 242 MG/DL (70-105); POTASSIUM 5.2 MMOL/L (3.6-5.0); SODIUM 134 MMOL/L (135-145); TOTAL PROTEIN 7.6 GM/DL (6.4-8.2); TRIGLYCERIDES 143 MG/DL (<150); VLDL CHOLESTEROL 29 MG/DL (5-40)
[2017-02-28 07:47] LABS: TROPONIN I < 0.30 NG/ML (<0.30)
[2017-02-28 08:00] VITALS: BP 145/60
[2017-02-28] MEDS ORDERED: ROPIVACAINE 5MG/ML 30ML VIAL ONE (13:37)
[2017-02-28] MEDS ORDERED: fentaNYL INJECTION 100 MCG/2 ML AMP ONE (13:37)
[2017-02-28] MEDS ORDERED: MIDAZOLAM 2 MG/2 ML (VERSED) VIAL ONE (13:37)
[2017-02-28] MEDS ORDERED: NEO/POLY/BAC (NEOSPORIN) OINT 15 GM TUBE ONE (13:40)
[2017-02-28] MEDS ORDERED: GENTAMICIN 40 MG/ML 2 ML INJ SDV ONE (13:40)
[2017-02-28] MEDS ORDERED: ceFAZolin 1,000 MG (ANCEF) VIAL ONE (14:24)
[2017-02-28] MEDS ORDERED: ONDANSETRON 4 MG/2 ML (SDV) Z0FRAN ONE ×2 (15:06→16:08)
[2017-02-28] MEDS ORDERED: morphine INJ 10 MG/ML 1ML (SYR OR VIAL) ONE (15:06)
--- NOTE | 2017-02-28 15:10 | Anesthesia-Peripheral Nerve Bl ---
Procedure Start/Stop Time Date of Procedure: Feb 28, 2017 Start Time: 13:45 Stop Time: 14:15 Peripheral Nerve Block Peripheral Nerve Blockade Risk/Benefits/Alternatives discussed, including IV injection leading to complications or seizures, nerve irritation or damage, pneumothorax, total spinal anesthesia, injection, and/or bleeding. Approach: Right Axillary Block Side Confirmed: RIGHT Indication: Req Pain Mgmt by Surgeon Specifically requested for management of pain by: Dr. Brown Patient Condition Vital Signs Vital Signs Date Time Temp Pulse Resp B/P (MAP) Pulse Ox O2 Delivery O2 Flow Rate FiO2 02/28/17 08:31 Room Air 02/28/17 08:08 58 02/28/17 08:00 97.7 18 145/60 90 Patient Condition: Sedate/contact maintained Procedure Prepartation: Chlorhexidine Position: Supine [place]: Short-bevel Needle (s) Size: 22g 2" Technique: Ultrasound (Axillary artery visualized with injections made. ) Sedation Given: Fentanyl (50mcg) Concentration %: 0.5 Volume (ml): 25 Narrative Injection was made incrementally with constant monitoring. Blood Aspirated: No Pain on injection noted: No Normal Resistance on injection: Yes Events Events: None:easy well tolerated Sucess: Full evaluation-pending Patient Conditon Post Peripheral Nerve Block Post Peripheral Nerve Block Vital Signs: Blood Pressure: Systolic Diastolic Heart Rate Blood Pressure Systolic: 145 Blood Pressure Diastolic: 60 Pulse Rate (adult): 58 DAY PEREZ CRNA Feb 28, 2017 15:10
[2017-02-28] MEDS ORDERED: SEVOFLURANE (ULTANE) 15 ML INHAL SOLN ONE (16:08)
[2017-02-28 17:30] VITALS: BP 116/86
[2017-02-28] MEDS ORDERED: oxyCODONE/APAP 5/325MG (PERCOCET 5) TABLET PO PRN (17:45)
--- NOTE | 2017-02-28 17:59 | Diagnostic Imaging Report ---
INDICATION: Right wrist fracture. EXAMINATION: Intraoperative views were taken with a portable intensifier in surgery during pin placement for distal radial fracture. FINDINGS: Plate and screws are in place across distal radial fracture with anatomic alignment. 16 seconds of fluoroscopy time was used in surgery IMPRESSION: Well aligned distal radial fracture with postoperative changes as above. Dictated by: Dictated on workstation # [id number]
[2017-02-28] MEDS: 1/2 NS IV SOLUTION 1,000 ML IV SCH (18:56)
[2017-02-28 20:00] VITALS: BP 142/71
[2017-02-28] MEDS: diphenhydrAMINE 25 MG TAB (BENADRYL) PO SCH (20:15)
[2017-02-28] MEDS: ATORVASTATIN 40 MG (LIPITOR) TABLET PO SCH (20:15)
[2017-02-28] MEDS: metFORMIN XR 500 MG (GLUCOPHAGE XR) TAB PO SCH (20:15)
[2017-02-28] MEDS: MAGNESIUM OXIDE (MAG-OX)400 MG TAB PO SCH (20:15)
[2017-02-28] MEDS: GABAPENTIN 300 MG (NEURONTIN) CAP PO SCH (20:16)
[2017-02-28] MEDS: DOCUSATE SODIUM 100 MG (COLACE) CAP PO SCH (20:16)
[2017-02-28] MEDS ORDERED: NON-FORMULARY MEDICATION 1 EA EA (Magnesium Oxide (Magnesium) 500 MG) PO SCH (21:00)
[2017-02-28] MEDS ORDERED: NON-FORMULARY MEDICATION 1 EA EA (Diphenhydramine HCl 25 MG) PO SCH (21:00)
[2017-02-28] MEDS: inSUlin ASPART (NovoLOG) 1 UNIT/0.01 ML (CHARGE PER UNIT) SC SCH (21:45)
--- NOTE | 2017-02-28 21:55 | History & Physicial (CHS) ---
HPI History of Present Illness: The patient presented to the ED last night with report of fall out of bed and syncope of unknown duration. She was found on the floor by her niece and had dried blood on her face that appeard to come from her nose, as well as a misshapen and painful right wrist. The patient reports that she remembers having a leg cramp and trying to get out of bed quickly, and then she must have passed out, because then she was found by her niece on the floor. She reports that she has been having episodes like this were she will "go out" for the last 1-2 years, which also coincides with the amount of time that she has been having issues with frequent low blood sugars. Patient reports that she started having the issues the same time she started having low sugars, which is also around the time they added some oral diabetic medication. The patient states that these "episodes" will occur with some unpredictability, sometimes she won' t have any for a week, and sometimes she will have a few in a week. If she is at work and sitting at her desk, she will start saying things that don't make sense, and then realize it and correct herself. If she is standing up, then she will fall down, and these episodes happen without warning. She reports that she is aware of these things happening, and aware of what happens during them, but it is like she can't do anything or speak while she is experiencing them. She does not have loss of consciousness, memory loss, incontinence, confusion, or other post-ictal type symptoms with these episodes, and she has complete awareness of what happens during the episodes. These have been previously reported to her PCP, but then her diabetes medications were being adjusted, and she has not had these other episodes worked up in depth per her report. No significant workup other than an echo from a few month ago is noted upon review of the patient's chart. Source: patient, family, old records Exam Limitations: no limitations Date seen by provider: Feb 28, 2017 Time Seen by Provider: 11:40 Attending Physician Sahara Stratton,[facility] Consult Dr. Moreira, Orthopedics Date of Admission Feb 27, 2017 at 13:10 Home Medications Home Medications Reviewed patient Home Medication Reconciliation Form Allergies Coded Allergies: codeine (Unverified Allergy, Severe, ITCHING, 09/02/14) ESU-Uykrev-Treftd Hx Patient Social History Marrital Status: Living Status: lives at home with spouse Employed/Student: employed Alcohol Use: Denies Use Recreational Drug Use: No Smoking Status: Former Smoker Type Used: Cigarettes 2nd Hand Smoke Exposure: No Recent Foreign Travel: No Contact w/other who traveled: No Recent Hopitalizations: No Recent Infectious Disease Expo: No Physical Abuse Screen: No Sexual Abuse: No Immunizations Up To Date Tetanus Booster (TDap): Unknown Date of Pneumonia Vaccine: Feb 02, 2015 Past Medical History Type II Diabetes Mellitus, Insulin Dependent Hypothyroidism Hypertention Hyperlipidemia Neuropathy Restless Leg Syndrome Severe Obstructive Sleep Apnea - CPAP at Night Depression Morbid Obesity, BMI 44 Hx of Tobacco Abuse Family Medical History Family History: Alzheimer's disease 19 MOTHER Diabetes mellitus G8 BROTHER FH: anemia G8 SISTER FH: congestive heart failure 19 FATHER FH: emphysema 19 FATHER 19 MOTHER G8 SISTER FH: lung cancer G8 SISTER FH: sleep apnea G8 SISTER Heart murmur 19 FATHER Hypertension G8 BROTHER Psychosocial problem G8 SISTER Review of Systems ([facility]C) Constitutional: see HPI EENTM: epistaxis (from striking nose in fall), No hearing loss, No vision loss , No throat pain Respiratory: No cough, No dyspnea on exertion, No short of breath Cardiovascular: No chest pain, edema, No palpitations Gastrointestinal: No no symptoms reported, No nausea, No vomiting Genitourinary: No discharge, No dysuria, No hematuria Musculoskeletal: joint pain, joint swelling Skin: see HPI Psychiatric/Neurological: No Symptoms Reported Reviewed Test Results Reviewed Test Results Lab Laboratory Tests Test 02/27/17 11:40 02/27/17 18:34 02/27/17 22:30 02/28/17 06:47 Range/Units White Blood Count 10.4 11.8 H 4.3-11.0 10^3/uL Red Blood Count 3.93 L 3.63 L 4.35-5.85 10^6/uL Hemoglobin 11.8 11.0 L 11.5-16.0 G/DL Hematocrit 37 35 35-52 % Mean Corpuscular Volume 94 95 80-99 FL Mean Corpuscular Hemoglobin 30 30 25-34 PG Mean Corpuscular Hemoglobin Concent 32 32 32-36 G/DL Red Cell Distribution Width 14.3 14.7 H 10.0-14.5 % Platelet Count 235 260 130-400 10^3/uL Mean Platelet Volume 9.7 10.2 7.4-10.4 FL Neutrophils (%) (Auto) 82 H 70 42-75 % Lymphocytes (%) (Auto) 10 L 16 12-44 % Monocytes (%) (Auto) 7 10 0-12 % Eosinophils (%) (Auto) 1 3 0-10 % Basophils (%) (Auto) 1 1 0-10 % Neutrophils # (Auto) 8.5 H 8.2 H 1.8-7.8 X 10^3 Lymphocytes # (Auto) 1.0 1.9 1.0-4.0 X 10^3 Monocytes # (Auto) 0.7 1.2 H 0.0-1.0 X 10^3 Eosinophils # (Auto) 0.1 0.4 H 0.0-0.3 10^3/uL Basophils # (Auto) 0.1 0.1 0.0-0.1 10^3/uL Prothrombin Time 12.7 12.2-14.7 SEC INR Comment 0.9 0.8-1.4 Activated Partial Thromboplast Time 29 24-35 SEC Sodium Level 136 134 L 135-145 MMOL/L Potassium Level 5.0 5.2 H 3.6-5.0 MMOL/L Chloride Level 101 101 98-107 MMOL/L Carbon Dioxide Level 27 25 21-32 MMOL/L Anion Gap 8 8 5-14 MMOL/L Blood Urea Nitrogen 29 H 33 H 7-18 MG/DL Creatinine 1.45 H 2.17 H 0.60-1.30 MG/DL Estimat Glomerular Filtration Rate 36 23 BUN/Creatinine Ratio 20 15 Glucose Level 66 L 242 H 70-105 MG/DL Hemoglobin A1c 6.9 H 4.5-6.2 % Calcium Level 9.5 8.9 8.5-10.1 MG/DL Magnesium Level 1.8 1.8-2.4 MG/DL Total Bilirubin 0.3 0.4 0.1-1.0 MG/DL Aspartate Amino Transf (AST/SGOT) 30 38 H 5-34 U/L Alanine Aminotransferase (ALT/SGPT) 9 8 0-55 U/L Alkaline Phosphatase 75 69 40-136 U/L Myoglobin 1150.2 H 10.0-92.0 NG/ML Troponin I < 0.30 < 0.30 < 0.30 < 0.30 <0.30 NG/ML Total Protein 8.1 7.6 6.4-8.2 GM/DL Albumin 3.6 3.5 3.2-4.5 GM/DL Triglycerides Level 143 <150 MG/DL Cholesterol Level 170 < 200 MG/DL LDL Cholesterol Direct 104 1-129 MG/DL VLDL Cholesterol 29 5-40 MG/DL HDL Cholesterol 35 L 40-60 MG/DL Test 02/28/17 08:48 02/28/17 20:40 03/01/17 03:25 03/01/17 05:16 Range/Units Glucometer 257 H 226 H 250 H 281 H 70-110 MG/DL Test 03/01/17 11:41 Range/Units Glucometer 279 H 70-110 MG/DL Radiology Right Wrist Xray -comminuted displaced intra articular fracture of the right distal radius. CT Head -no acute abnormality Physical Exam-(CHC) Physical Exam Vital Signs VS - Last 72 Hours, by Label 02/27/17 02/27/17 02/27/17 02/27/17 11:20 13:36 15:30 18:38 Temp 98.1 98.1 97.5 Pulse 78 78 63 66 Resp 18 18 17 B/P (MAP) 145/56 175/75 Pulse Ox 96 96 93 02/27/17 02/27/17 02/28/17 02/28/17 19:00 20:00 00:00 01:00 Temp 97.6 99.0 Pulse 67 69 65 72 Resp 17 20 B/P (MAP) 144/76 153/71 Pulse Ox 96 94 O2 Delivery Room Air 02/28/17 02/28/17 02/28/17 02/28/17 04:00 08:00 08:08 08:31 Temp 98.4 97.7 Pulse 63 62 58 Resp 18 18 B/P (MAP) 138/78 145/60 Pulse Ox 93 90 O2 Delivery Room Air Room Air Room Air 02/28/17 02/28/17 02/28/17 02/28/17 17:30 19:00 20:00 20:00 Temp 99.0 100.0 Pulse 80 73 69 Resp 18 16 B/P (MAP) 116/86 142/71 Pulse Ox 98 97 O2 Delivery Nasal Cannula Nasal Cannula Nasal Cannula O2 Flow Rate 2.50 3.00 2.50 03/01/17 03/01/17 03/01/17 03/01/17 00:00 01:00 04:20 08:00 Temp 99.3 101.0 98.1 Pulse 73 76 73 68 Resp 20 16 18 B/P (MAP) 104/73 122/58 123/49 Pulse Ox 95 93 98 O2 Delivery Nasal Cannula Nasal Cannula Nasal Cannula O2 Flow Rate 2.50 2.00 2.00 03/01/17 03/01/17 08:18 12:00 Temp 98.1 Pulse 65 Resp 20 B/P (MAP) 121/57 Pulse Ox 94 O2 Delivery Nasal Cannula Nasal Cannula O2 Flow Rate 2.00 2.00 Capillary Refill : Less Than 3 SecondsLess Than 3 Seconds General Appearance: WD/WN, no apparent distress Eyes: Bilateral Eye Normal Inspection, Bilateral Eye EOMI HEENT: PERRL/EOMI, pharynx normal, No scleral icterus (R), No scleral icterus ( L), No photophobia Neck: non-tender, full range of motion, supple, normal inspection, No lymphadenopathy (R), No lymphadenopathy (L), No thyromegaly Respiratory: lungs clear, normal breath sounds, no respiratory distress, no accessory muscle use, No crackles, No rales, No rhonchi, No wheezing Cardiovascular: regular rate, rhythm, no gallop, diastolic murmur (II/ best heard at RSB) Gastrointestinal: normal bowel sounds, non tender, soft, no organomegaly, No guarding, No rebound Back: normal inspection, no CVA tenderness, no vertebral tenderness, No CVA tenderness (R), No CVA tenderness (L) Extremities: no calf tenderness, normal capillary refill, swelling, other ( right wrist splinted) Neurologic/Psychiatric: continuous improvement manager II-XII nml as tested, no motor/sensory deficits, alert, normal mood/affect, oriented x 3 Skin: normal color, warm/dry Lymphatic: no adenopathy Clinical Quality Measures DVT/VTE Risk/Contraindication: Risk Factor Score Per Nursin RFS Level Per Nursing on Admit: 3=High Assessment/Plan Assessment/Plan Admission Dx Syncope Fall Comminuted displaced intra articular fracture of right distal radius Type II Diabetes Mellitus, Insulin Dependent Hypothyroidism Hypertention Hyperlipidemia Neuropathy Restless Leg Syndrome Severe Obstructive Sleep Apnea - CPAP at Night Depression Morbid Obesity, BMI 44 Hx of Tobacco Abuse Plan Patient to have surgery at 1430 this afternoon. Will have patient return to her room when discharged from PACU, continue on telemetry tonight, resume sliding scale insulin and diabetic diet. Anticipate discharge in AM to home with sliding scale insulin and will refer for outpatient further workup of episodes that are potential syncope or seizures. SAHARA STRATTON DO Feb 28, 2017 21:55
[2017-03-01] VITALS: BP 104/73
[2017-03-01] MEDS: 1/2 NS IV SOLUTION 1,000 ML IV SCH ×2 (02:35→03:46)
[2017-03-01 04:20] VITALS: BP 122/58
[2017-03-01] MEDS: CATHETER FLUSH 10 ML SYR IV SCH ×3 (04:54→21:24)
[2017-03-01] MEDS: inSUlin ASPART (NovoLOG) 1 UNIT/0.01 ML (CHARGE PER UNIT) SC SCH ×4 (05:53→21:22)
[2017-03-01] MEDS: LEVOTHYROXINE 100 MCG (LEVOTHROID) TAB PO SCH (05:54)
[2017-03-01] MEDS: metFORMIN XR 500 MG (GLUCOPHAGE XR) TAB PO SCH ×2 (05:54→17:18)
[2017-03-01 08:00] VITALS: BP 123/49
--- NOTE | 2017-03-01 08:40 | Physical Therapy Ortho Eval ---
PT Orthopedic Evaluation Type of Surgery (R) radial fracture with ORIF Prior Level of Function Current Living Status: Other Family Locomotion (Upon Admit): Independent Established Durable Medical Eq: None Subjective Subjective Pt is still lethargic, but able to participate and answer pertinent questions. Entry Into Home: Stairs With Railing Steps Into Home: 2 Objective Objective Pt was able to perform sit to stand (I). She walked 15ft without an AD, with hand held assist. She was able to return to the chair (I). Motor Control Motor Control: Motor Control WNL ROM ROM: WFL Strength Strength: WFL Transfer Transfers (B, C, W/C) (FIM): 5 Pt is still lethargic from medication/anesthesia. Gait Gait Assistive Device: Handheld Assist Gait (FIM): 5 Distance (FIM): 1=up to 49 ft Distance: 15ft Gait Level of Assist: 5 Assessment/Goals Goal Time Frame: 1 Visit Understands HEP: Yes Safe Ambulation: Yes Plan Treatment Plan: Discharge Treatment Duration: 1 visit PT/Family Agrees to Plan: Yes Time Time In: 15 Time Out: 0840 Total Billed Treatment Time: 25 Billed Treatment Time María, CANDIDO Craft PT Mar 01, 2017 08:40
--- NOTE | 2017-03-01 09:51 | Progress Note (SOAP) ---
Subjective Date Seen by Provider: Mar 01, 2017 Time Seen by Provider: 08:46 Subjective/Events-last exam Alix is POD #1 s/p ORIF right wirst. She was sleeping when I entered her room and woke easily. She admits to right forearm and wrist pain. She denies pallor, paraesthesias, or paralysis. She has no new symptoms to report. Review of Systems General: No Chills, No Night Sweats HEENT: No Head Aches Cardiovascular: No: Chest Pain, Palpitations Gastrointestinal: No: Nausea, Vomiting Genitourinary: No Dysuria Neurological: No: Weakness, Numbness Objective Exam Vital Signs Date Time Temp Pulse Resp B/P (MAP) Pulse Ox O2 Delivery O2 Flow Rate FiO2 03/01/17 08:18 Nasal Cannula 2.00 03/01/17 08:00 98.1 68 18 123/49 98 Nasal Cannula 2.00 03/01/17 04:20 101.0 73 16 122/58 93 Nasal Cannula 2.00 03/01/17 01:00 76 03/01/17 00:00 99.3 73 20 104/73 95 Nasal Cannula 2.50 02/28/17 20:00 100.0 69 16 142/71 97 Nasal Cannula 2.50 02/28/17 20:00 Nasal Cannula 3.00 02/28/17 19:00 73 02/28/17 17:30 99.0 80 18 116/86 98 Nasal Cannula 2.50 Capillary Refill : Less Than 3 SecondsLess Than 3 Seconds General Appearance: No Apparent Distress Respiratory: No Accessory Muscle Use, No Respiratory Distress Extremity: Other (RUE: forearm in splints, NVI intact with ability to move all fingers, sensation intact, dressings clean and dry) Neurologic/Psychiatric: Alert, Oriented x3, No Motor/Sensory Deficits Skin: Normal Color, Warm/Dry Results Lab Laboratory Tests 02/28/17 20:40: Glucometer 226H 03/01/17 03:25: Glucometer 250H 03/01/17 05:16: Glucometer 281H Microbiology 02/27/17 MRSA Screen - Final, Complete MRSA not isolated Assessment/Plan Assessment/Plan Assess & Plan/Chief Complaint Assessment: POD #1 s/p ORIF right distal radius/wrist Plan: patient stable from orthopedic standpoint will need follow up with Dr Avery office in two weeks may call friday to schedule 2 week follow up appt [phone] will write oral analgesic for pain control, have counseled to keep splint dry Clinical Quality Measures DVT/VTE Risk/Contraindication: Risk Factor Score Per Nursin RFS Level Per Nursing on Admit: 3=High PHILIP BURTON Mar 01, 2017 09:51
[2017-03-01] MEDS ORDERED: OXYC-197 PO (09:57)
[2017-03-01] MEDS: MAGNESIUM OXIDE (MAG-OX)400 MG TAB PO SCH ×2 (10:01→21:24)
[2017-03-01] MEDS: lisINopril 20 MG (ZESTRIL) TAB PO SCH (10:01)
[2017-03-01] MEDS: ASPIRIN E.C. 81 MG (ECOTRIN) TAB PO SCH (10:01)
[2017-03-01] MEDS: diphenhydrAMINE 25 MG TAB (BENADRYL) PO SCH ×2 (10:01→21:24)
[2017-03-01] MEDS: DOCUSATE SODIUM 100 MG (COLACE) CAP PO SCH ×2 (10:01→21:24)
[2017-03-01] MEDS: GABAPENTIN 300 MG (NEURONTIN) CAP PO SCH ×2 (10:01→21:24)
--- NOTE | 2017-03-01 10:44 | Anesthesia-General Post-Op ---
General Patient Condition Mental Status/LOC: Same as Preop Cardiovascular: Satisfactory Nausea/Vomiting: Absent Respiratory: Satisfactory Pain: Controlled Complications: Absent Post Op Complications Complications None Follow Up Care/Instructions Patient Instructions None needed. Anesthesia/Patient Condition Patient Condition Patient is doing well, no complaints, stable vital signs, no apparent adverse anesthesia problems. No complications reported per nursing. SAMUEL HERNANDEZ CRNA Mar 01, 2017 10:43
[2017-03-01 12:00] VITALS: BP 121/57
[2017-03-01 15:50] VITALS: BP 110/48
--- NOTE | 2017-03-01 18:55 | Progress Note (SOAP) ---
KIMBERLY GONZALES MED STUDENT 03/01/17 1805: Subjective Subjective/Events-last exam Patient's nurse, Lila, says surgeon who performed patient's ORIF of the right wrist, Dr. Brown, gave her a script for pain medication and feels she is okay to go home. Lila discontinued patient's IV after Dr. Brown said he feels she can leave hospital. Lila has kept patient on O2 and says the cumulative effect of patient's pain medications post-surgery "snowed" patient last night. Patient rates her pain today as a 4-5/10 and was able to walk to and from the bathroom under her own power and without incident. Patient states her syncope has been getting worse recently and that she does not use ambulatory assistance at home (i.e. cane, walker). Patient's former was present and expressed doubt that patient could return home tonight since she lives with her niece who is legally blind. Patient's former would likely be one to attend to patient in emergency, and he is unsure if he can be available since he is dealing with an oral abscess himself. Patient's former explains how Dr. Galindo was concerned patient's oral diabetes medications are contributing to her syncope and that a switch to insulin may benefit the patient in this regard. Review of Systems Date Seen by Provider: Mar 01, 2017 Time Seen by Provider: 16:00 General: No Chills, Other Pulmonary: No Cough Cardiovascular: No: Chest Pain Gastrointestinal: No: Nausea, Vomiting Musculoskeletal: arm pain (right arm pain associated with ORIF yesterday of right wrist) Neurological: Other Objective Exam Last Set of Vital Signs Vital Signs Date Time Temp Pulse Resp B/P (MAP) Pulse Ox O2 Delivery O2 Flow Rate FiO2 03/01/17 15:50 97.8 62 20 110/48 96 Nasal Cannula 2.00 Capillary Refill : Less Than 3 SecondsLess Than 3 Seconds I&O Intake and Output 03/02/17 00:00 Intake Total 310 ml Output Total 2000 ml Balance -1690 ml Intake Oral 310 ml Output Urine Total 2000 ml # Voids 1 General: Cooperative, Other (Patient's overall mentation appeared slowed. She could understand and respond accordingly to questions, but struggled at times getting words out and finishing her thoughts; there were times she would just trail off in her oral responses) Neck: No Thyromegaly Lungs: Clear to Auscultation Heart: Regular Rate Extremities: Other (Patient was able to wiggle fingers of right hand on command ) Neuro: Other (Sensation intact in all fingers of right hand) Results/Procedures Lab Laboratory Tests 02/28/17 20:40: Glucometer 226H 03/01/17 03:25: Glucometer 250H 03/01/17 05:16: Glucometer 281H 03/01/17 11:41: Glucometer 279H 03/01/17 15:57: Glucometer 282H Microbiology 02/27/17 MRSA Screen - Final, Complete MRSA not isolated Radiology Right Wrist Xray -comminuted displaced intra articular fracture of the right distal radius. CT Head -no acute abnormality Assessment/Plan Assessment/Plan Admission Dx 1.) Rt collar fx/ORIF of right wrist 2.) Frequent syncope 3.) Fall risk 4.) DM-II 5.) Hypothyroidism 6.) AMS Plan Patient to have surgery at 1430 this afternoon. Will have patient return to her room when discharged from PACU, continue on telemetry tonight, resume sliding scale insulin and diabetic diet. Anticipate discharge in AM to home with sliding scale insulin and will refer for outpatient further workup of episodes that are potential syncope or seizures. Clinical Quality Measures DVT/VTE Risk/Contraindication: Risk Factor Score Per Nursin RFS Level Per Nursing on Admit: 3=High LATONYA KIM MD 03/02/172032: Objective Exam General: Alert, Oriented X3, Cooperative, No Acute Distress Lungs: Clear to Auscultation Heart: Regular Rate, No Murmurs Abdomen: Normal Bowel Sounds, Soft, No Tenderness, No Masses Extremities: Other (trace edema in LE bilaterally) Neuro: Normal Speech, Sensation Intact, Cranial Nerves 3-12 NL, Other ( Sensation intact in all fingers of right hand, splint in place) Psych/Mental Status: Mental Status NL, Mood NL Assessment/Plan Assessment/Plan Plan 66 yo F admitted after fall that resulted in right wrist fracture POD #1 ORIF Plan Right Wrist Fracture POD #1 - Ortho managing Syncope - Unknown cause, but patient is on multiple Oral glycemic agents, will stop and just manage with Insulin at this time - No driving - Denies CP or shortness of breath, no episodes on Tele IDDM - Stop glycemic agents except for insulin - A1c 6.9 - Will need close follow up with Angelika and Ashley to manage DM Fall - PT/OT working with patient Dispo: Will plan on D/c home tomorrow, will write for HH orders to be started on Friday KIMBERLY GONZALES STUDENT Mar 01, 2017 18:55 LATONYA KIM MD Mar 02, 2017 20:33
[2017-03-01 20:24] VITALS: BP 161/71
[2017-03-01] MEDS: ATORVASTATIN 40 MG (LIPITOR) TABLET PO SCH (21:24)
[2017-03-02 00:48] VITALS: BP 124/50
[2017-03-02 04:00] VITALS: BP 124/55
[2017-03-02] MEDS: inSUlin ASPART (NovoLOG) 1 UNIT/0.01 ML (CHARGE PER UNIT) SC SCH ×2 (05:44→12:10)
[2017-03-02] MEDS: CATHETER FLUSH 10 ML SYR IV SCH (05:44)
[2017-03-02] MEDS: metFORMIN XR 500 MG (GLUCOPHAGE XR) TAB PO SCH (05:44)
[2017-03-02] MEDS: LEVOTHYROXINE 100 MCG (LEVOTHROID) TAB PO SCH (05:44)
[2017-03-02] MEDS: ACETAMINOPHEN 500 MG TAB (TYLENOL) PO PRN (05:44)
[2017-03-02 08:00] VITALS: BP 110/50
[2017-03-02] MEDS: diphenhydrAMINE 25 MG TAB (BENADRYL) PO SCH (09:11)
[2017-03-02] MEDS: GABAPENTIN 300 MG (NEURONTIN) CAP PO SCH (09:11)
[2017-03-02] MEDS: MAGNESIUM OXIDE (MAG-OX)400 MG TAB PO SCH (09:11)
[2017-03-02] MEDS: lisINopril 20 MG (ZESTRIL) TAB PO SCH (09:11)
[2017-03-02] MEDS: DOCUSATE SODIUM 100 MG (COLACE) CAP PO SCH (09:11)
[2017-03-02] MEDS: ASPIRIN E.C. 81 MG (ECOTRIN) TAB PO SCH (09:11)
[2017-03-02 12:00] VITALS: BP 144/65
[2017-03-02] MEDS ORDERED: INFLUENZA TRIvalent 2017-2018 0.5 ML/45 MCG SYR IM ONE (12:06)
--- NOTE | 2017-03-02 12:35 | Discharge Summary ---
Diagnosis/Chief Complaint Date of Admission Feb 27, 2017 at 13:10 Date of Discharge 03/02/17 Admission Diagnosis Admission Diagnosis Right Wrist fracture Syncope IDDM Fall Discharge Diagnosis See Above Chief Complaint/HPI Chief Complaint/HPI The patient presented to the ED last night with report of fall out of bed and syncope of unknown duration. She was found on the floor by her niece and had dried blood on her face that appeard to come from her nose, as well as a misshapen and painful right wrist. The patient reports that she remembers having a leg cramp and trying to get out of bed quickly, and then she must have passed out, because then she was found by her niece on the floor. She reports that she has been having episodes like this were she will "go out" for the last 1-2 years, which also coincides with the amount of time that she has been having issues with frequent low blood sugars. Patient reports that she started having the issues the same time she started having low sugars, which is also around the time they added some oral diabetic medication. The patient states that these "episodes" will occur with some unpredictability, sometimes she won' t have any for a week, and sometimes she will have a few in a week. If she is at work and sitting at her desk, she will start saying things that don't make sense, and then realize it and correct herself. If she is standing up, then she will fall down, and these episodes happen without warning. She reports that she is aware of these things happening, and aware of what happens during them, but it is like she can't do anything or speak while she is experiencing them. She does not have loss of consciousness, memory loss, incontinence, confusion, or other post-ictal type symptoms with these episodes, and she has complete awareness of what happens during the episodes. These have been previously reported to her PCP, but then her diabetes medications were being adjusted, and she has not had these other episodes worked up in depth per her report. No significant workup other than an echo from a few month ago is noted upon review of the patient's chart. Discharge Summary-Simple/Stand Consultations Dr. Moreira, Orthopedics Discharge Physical Examination Allergies: Coded Allergies: codeine (Unverified Allergy, Severe, ITCHING, 09/02/14) Vitals & I&Os Vital Sign - Last 12Hours Date Time Temp Pulse Resp B/P (MAP) Pulse Ox O2 Delivery O2 Flow Rate FiO2 03/02/17 12:29 97.8 03/02/17 12:00 67 20 144/65 91 Room Air 03/02/17 00:48 3.00 General Appearance: Alert, Oriented X3, Cooperative, No Acute Distress HEENT: PERRLA, Mucous Memb Moist/[place] Respiratory: Clear to Auscultation, Normal Air Movement Cardiovascular: Regular Rate, No Murmurs Abdominal: Normal Bowel Sounds, Soft, No Tenderness Extremities: No Edema, No Tenderness/Swelling Skin: No Rashes Neuro: Normal Gait, Normal Speech, Strength at 5/5 X4 Ext, Sensation Intact, Cranial Nerves 3-12 NL Psych/Mental Status: Mental Status NL, Mood NL Hospital Course See final discharge diagnosis. Pending Labs None Pending Radiology Reviewed Right Wrist Xray -comminuted displaced intra articular fracture of the right distal radius. CT Head -no acute abnormality Discussion & Recommendations 66 yo F that presented after suffering a fall of unknown cause that resulted in Right wrist fracture. Ortho was consulted and took patient to surgery for ORIF. No cause for the syncopal episode was found. Patient is on multiple DM medications that could cause hypoglycemia. Patient was continued on insulin only and will need close follow up with PCP Daniel. Patient was told not to drive. Home health orders where written at time of discharge. Discharge Condition at discharge stable Instructions to patient/family Please see electronic discharge instructions given to patient. Discharge Medications Reviewed and agree with Discharge Medication list on patient's Discharge Instruction sheet Clinical Quality Measures DVT/VTE Risk/Contraindication: Risk Factor Score Per Nursin RFS Level Per Nursing on Admit: 3=High Copy Copies To 1: Daniel QUIROZ HOLLY R MD Mar 02, 2017 12:35
--- NOTE | 2017-03-02 12:43 | D/C HH Face to Face Order ---
D/C Face to Face Orders Instructions for Patient Patient Instructions/FollowUp: Ortho in 2 weeks [facility] w/n 2 weeks Physician to follow Patient: Barnidge Discharge Diet for Home: ADA Diet Patient Problems: Right Wrist Fracture s/o ORIF IDDM with Hypoglycemia Syncope with Falls Debility Hypothyroidism Goals for Patient: - ROM with Right arm - Stability with ambulation - DM education Patient Data-Allergies,Ht & Wt Patient Allergies: Coded Allergies: codeine (Unverified Allergy, Severe, ITCHING, 09/02/14) Height (Feet): 5 Height (Inches): 2.00 Weight (Pounds): 242 Weight (Ounces): 0.0 Home Health Need/Face to Face Date of Face to Face: Mar 02, 2017 Clinical Findings: Generalized weakness and fatigue, Instability, Unsteady gait I have seen Pt [id number]: Yes Discharged To: Home Diagnosis/Conditions: Right Wrist Fracture s/o ORIF IDDM with Hypoglycemia Syncope with Falls Debility Hypothyroidism Problems/Diagnosis/Condition: Patient is Homebound due to: Melchor fall risk due to instabilty Homebound Status Due to the above stated illness, injury or surgical procedure (medical condition or diagnosis) and associated clinical findings, the patient is homebound because of his/her inability to leave home except with aid of a supportive device and/or person AND leaving the home requires a considerable and taxing effort or is medically contraindicated. Pt req the following assistanc: Aid of another person (Patient can not drive due to frequent Syncope) Home Health Nursing Orders Home Health Services Order: Nursing Services, Digital Music Instructor-Evaluate & Treat, Physical Therapy-Evaluate & Treat Therapy Orders Therapy Orders: Physical Therapy, PT to assess for OT Therapy Specific Orders: Eval assistive deivces, Teach enviro modifications/ safety, Gait training, Increase strength/endurance Certify Stmt I certify that this patient is under my care and that I, a nurse practitioner or a physician; a assistant activities director working with me, had a face to face encounter that - meets the physician face to face encounter requirements with this patient as dated. LATONYA KIM MD Mar 02, 2017 12:43
[2017-03-02 13:55] VITALS: BP 144/65
--- NOTE | 2017-03-03 07:34 | OPERATIVE REPORT ---
DATE OF SERVICE: 02/28/2017 PREOPERATIVE DIAGNOSIS: Comminuted intraarticular fracture of right distal radius. POSTOPERATIVE DIAGNOSIS: Comminuted intraarticular fracture of the right distal radius. PROCEDURE: Open reduction and internal fixation, right distal radius. SPECIAL TESTER: Ginger Moreira NP. GROSS PATHOLOGY: The patient had fallen when she passed out yesterday injuring her right ___. She has a severely comminuted distal radial fracture. This is in multiple fragments, more than 3. It is intra-articular. We were able to reduce this with the Acumed 2 plate and augment this with 2.45 K-wires. Final position is satisfactory. The fracture was reasonably stable, but due to the comminution, we will need immobilization and will not be able to start early motion. DESCRIPTION OF PROCEDURE: The patient given a scalene nerve block followed by general anesthetic. Right arm prepped with ChloraPrep and draped in usual manner. Tourniquet inflated to 250 mmHg for 62 minutes. A volar incision was made. We tried to avoid the old carpal tunnel incision, but there is still some scarring along the nerve. At this point, we did over approximately 8 to 12 cm dissection between the nerve and the radial artery. Dissection carried down to the distal radius. Again, there was significant displacement and severe comminution, which was intra-articular. We were able to piece the four main fragments back together with multiple K wires and then placed the Acumed 2 plate over this. There were 7 distal locking screws placed and 2 proximal locking screws placed. Length had largely been restored. It was at least neutral if not slight volar tilt, but due to the comminution particularly of radial styloid, we did augment this with 2.5 smooth K wires to augment the fixation, which gave a relatively good stability over there or the wrist could be moved at least in the OR without any fracture motion. At this point, we did an injection of fluoroscopic material to make sure none of the screws were too long and then irrigated, tourniquet deflated, bleeding was controlled with cautery and then closed in layers with 2-0 Vicryl, 4-0 nylon. A short arm splint was applied. The patient was taken to recovery in stable condition. Ginger Moreira NP was required in this case in order to re-plate the hand, retract as well as aid in reduction of the fracture and in implantation of the K wires and plate and screws. She also was required to close as well as apply splints and dressing. Job ID: [id number] DocumentID: [id number] Dictated Date: 02/28/2017 16:13:34 Cabin Agent Date: 03/01/2017 01:55:42 Dictated By: LYN SOLIS DO
== END 2017-03-02 13:55 | disposition home health service (06) | DRG 511 ==
LOC: EDUNIT# 11:14 → ER 11:16 → 4TH 13:10
PROVIDERS: ADMIT Family Medicine; ATTEND Family Medicine
PROC: 0PSH04Z Reposition Right Radius with Internal Fixation Device, Open Approach (ICD-10-PCS; principal; 2017-02-28 14:30)
DX: S52.571A Other intraarticular fracture of lower end of right radius, initial encounter for closed fracture (principal); R55 Syncope and collapse; E66.01 Morbid (severe) obesity due to excess calories; Z68.41 Body mass index [BMI] 40.0-44.9, adult; E11.43 Type 2 diabetes mellitus with diabetic autonomic (poly)neuropathy; I10 Essential (primary) hypertension; E03.9 Hypothyroidism, unspecified; F32.9 Major depressive disorder, single episode, unspecified; G47.33 Obstructive sleep apnea (adult) (pediatric); E78.5 Hyperlipidemia, unspecified; G25.81 Restless legs syndrome; R41.82 Altered mental status, unspecified; W06.XXXA Fall from bed, initial encounter; Y92.013 Bedroom of single-family (private) house as the place of occurrence of the external cause; Z87.891 Personal history of nicotine dependence; Z79.4 Long term (current) use of insulin; Z23 Encounter for immunization
CPT/HCPCS: 36415; 70450; 71010; 73110; 80053; 80061; 82962; 83036; 83735; 83874; 84484; 85025; 85610; 85730; 87081; 93005; 96374; 96376

== ENCOUNTER 2017-04-14 08:08 | Outpatient (RCR) | payer SELFPAY ==
[~2017-04-14 08:08] MED LIST changes: +LISI10TA2 PO; +NITR50CA PO; +OXYC-197 PO; +OXYC-471 PO; +PIOG45TA7 PO; +WALK1EAC23 MC
[2017-06-25] MEDS ORDERED: CITA40TA11 PO (09:27)
[2017-06-25] MEDS ORDERED: BUDE10.22 INH (09:27)
[2017-06-25] MEDS ORDERED: INSU100I14 SQ (09:27)
[2017-06-25] MEDS ORDERED: CINN500C2 PO (09:29)
[2017-06-25] MEDS ORDERED: INSU200I4 SQ (09:40)
[2017-06-27] MEDS ORDERED: PRD20T PO (14:36)
[2017-06-27] MEDS ORDERED: AZIT250T12 PO (14:36)
[2017-07-01] MEDS ORDERED: INSU200I4 SQ (10:14)
[2017-07-01] MEDS ORDERED: CEFD300C3 PO (10:14)
[2017-07-01] MEDS ORDERED: LISI-552 PO (10:14)
== END 2017-07-13 | disposition home or self-care (01) ==
LOC: CARD 08:08
PROVIDERS: ATTEND Internal Medicine Cardiovascular Disease
DX: R00.1 Bradycardia, unspecified (principal); I11.9 Hypertensive heart disease without heart failure; E78.5 Hyperlipidemia, unspecified; I34.0 Nonrheumatic mitral (valve) insufficiency
CPT/HCPCS: 93225; 93226

== ENCOUNTER → 2017-05-21 | Outpatient (CLI) | payer MEDICARE ==
[~2017-05-21] MED LIST changes: +CATHETER FLUSH 10 ML SYR IV PRN; +REGADENOSON 0.4 MG/5 ML SYR (LEXISCAN) IV ONE
[2017-05-21 09:17] VITALS: BP 166/72
--- NOTE | 2017-05-21 20:53 | STRESS TEST ---
DATE OF SERVICE: 05/21/2017 LEXISCAN MYOVIEW STRESS TEST REPORT Baseline heart rate is 61, baseline blood pressure 148/72. Baseline EKG is sinus rhythm with nonspecific T-wave abnormality. In summary, the patient received 10.58 mCi of technetium-99 Myoview and the resting images were obtained. Then, the patient received 0.4 mg of Lexiscan followed by 32.1 mCi of technetium-99 Myoview. Throughout the test, there were no EKG changes. The resting and stressed images were reviewed and compared in the short axis, horizontal long axis, and vertical long axis views. Review of the images showed no significant ischemia or infarction on SPECT images and mild apical thinning. SSS is 4, SDS 2, TID value 0.98. On the gated images, the left ventricle appeared to be normal size with normal contractility. The calculated ejection fraction 69%. CONCLUSION: 1. The patient tolerated Lexiscan well. 2. No significant ischemia or infarction on SPECT images. 3. Normal left ventricular size with normal contractility. Calculated ejection fraction 69%. Job ID: [id number] DocumentID: [id number] Dictated Date: 05/21/2017 11:01:33 Gun Profiler Date: 05/21/2017 14:00:27 Dictated By: CALLIE JIM MD
== END ==
LOC: CARD 07:54
PROVIDERS: ATTEND Internal Medicine Cardiovascular Disease
DX: R00.1 Bradycardia, unspecified (principal); I11.0 Hypertensive heart disease with heart failure; E78.5 Hyperlipidemia, unspecified; I34.0 Nonrheumatic mitral (valve) insufficiency
CPT/HCPCS: 78452; 93017

== ENCOUNTER → 2017-08-07 | Outpatient (CLI) | payer MEDICARE, MEDICAID ==
[~2017-08-07] MED LIST changes: +AZIT250T12 PO; +BUDE10.22 INH; -CATHETER FLUSH 10 ML SYR IV PRN; +CEFD300C3 PO; +CINN500C2 PO; +CITA40TA11 PO; +INSU200I4 SQ; +PRD20T PO; -REGADENOSON 0.4 MG/5 ML SYR (LEXISCAN) IV ONE
== END ==
LOC: LAB 08:18
PROVIDERS: ATTEND Orthopaedic Surgery
DX: E11.9 Type 2 diabetes mellitus without complications (principal)
CPT/HCPCS: 36415; 83036

== ENCOUNTER → 2017-09-09 | Outpatient (CLI) | payer MEDICARE, MEDICAID ==
[~2017-09-09] MED LIST changes: +ACET-2267 PO; -CITA20TA7 PO; +CITA20TA9 PO; +HYDR25TA4 PO; +PIOG45TA18 PO
[2017-09-09 12:17] LABS: ALBUMIN 4.2 GM/DL (3.2-4.5); CALCIUM 9.7 MG/DL (8.5-10.1); CREATININE SERUM 1.18 MG/DL (0.60-1.30); PHOSPHORUS 2.8 MG/DL (2.3-4.7); POTASSIUM 4.1 MMOL/L (3.6-5.0)
== END ==
LOC: LAB 11:15
PROVIDERS: ATTEND Internal Medicine Nephrology
DX: N17.9 Acute kidney failure, unspecified (principal); E87.5 Hyperkalemia; E87.1 Hypo-osmolality and hyponatremia; R00.1 Bradycardia, unspecified
CPT/HCPCS: 36415; 80069

== ENCOUNTER → 2017-09-15 | Outpatient (CLI) | payer MEDICARE, MEDICAID ==
[2017-09-15 14:47] LABS: HEMOGLOBIN 12.6 G/DL (11.5-16.0); MEAN PLATELET VOLUME 9.7 FL (7.4-10.4); RED BLOOD COUNT 4.22 10^6/uL (4.35-5.85); RED CELL DISTRIBUTION WIDTH 15.2 % (10.0-14.5); WHITE BLOOD COUNT 10.4 10^3/uL (4.3-11.0)
[2017-09-15 14:56] LABS: BILIRUBIN,URINE NEGATIVE (NEGATIVE); CLARITY,URINE CLEAR; COLOR,URINE YELLOW; GLUCOSE, URINE (UA) 3+ (NEGATIVE); KETONES,URINE NEGATIVE (NEGATIVE); LEUKOCYTE ESTERASE ,URINE 3+ (NEGATIVE); NITRITE,URINE NEGATIVE (NEGATIVE); PH,URINE 7 (5-9); PROTEIN,URINE 1+ (NEGATIVE); UROBILINOGEN,URINE NORMAL (NORMAL)
[2017-09-15 15:04] LABS: BACTERIA,URINE FEW /HPF
[2017-09-15 15:15] LABS: URINE CREATININE FOR RATIO 24 MG/DL (30-125); URINE PROTEIN FOR RATIO ONLY < 6 MG/DL (6-12)
== END ==
LOC: LAB 14:23
PROVIDERS: ATTEND Internal Medicine Nephrology
DX: N17.9 Acute kidney failure, unspecified (principal); E87.5 Hyperkalemia; E87.1 Hypo-osmolality and hyponatremia; R00.1 Bradycardia, unspecified
CPT/HCPCS: 36415; 81000; 82570; 84156; 85027; 87077; 87088; 87186

== ENCOUNTER → 2018-01-09 | Outpatient (CLI) | payer MEDICARE, MEDICAID ==
[~2018-01-09] MED LIST changes: -OXYC-197 PO; +OXYC1TAB87 PO; -PIOG45TA18 PO; +PIOG45TA65 PO
[2018-01-09 09:17] LABS: BILIRUBIN,URINE NEGATIVE (NEGATIVE); CLARITY,URINE CLEAR; COLOR,URINE YELLOW; GLUCOSE, URINE (UA) NEGATIVE (NEGATIVE); KETONES,URINE NEGATIVE (NEGATIVE); LEUKOCYTE ESTERASE ,URINE 2+ (NEGATIVE); NITRITE,URINE NEGATIVE (NEGATIVE); PH,URINE 6 (5-9); PROTEIN,URINE NEGATIVE (NEGATIVE); UROBILINOGEN,URINE NORMAL (NORMAL)
[2018-01-09 09:27] LABS: RBC,URINE RARE /HPF
[2018-01-09 09:28] LABS: BACTERIA,URINE NEGATIVE /HPF; SQUAMOUS EPITHELIAL CELL,UR RARE /HPF
== END ==
LOC: LAB 08:32
PROVIDERS: ATTEND Nurse Practitioner
DX: E11.9 Type 2 diabetes mellitus without complications (principal); N39.0 Urinary tract infection, site not specified
CPT/HCPCS: 36415; 81000; 82947; 83036

== ENCOUNTER → 2018-02-10 | Outpatient (CLI) | payer MEDICARE, MEDICAID ==
[2018-02-10 09:19] LABS: HEMOGLOBIN 11.7 G/DL (11.5-16.0); MEAN PLATELET VOLUME 9.6 FL (7.4-10.4); RED BLOOD COUNT 4.09 10^6/uL (4.35-5.85); RED CELL DISTRIBUTION WIDTH 15.7 % (10.0-14.5); WHITE BLOOD COUNT 9.1 10^3/uL (4.3-11.0)
[2018-02-10 09:39] LABS: ALBUMIN 3.7 GM/DL (3.2-4.5); CALCIUM 9.5 MG/DL (8.5-10.1); CREATININE SERUM 1.32 MG/DL (0.60-1.30); PHOSPHORUS 3.4 MG/DL (2.3-4.7); POTASSIUM 3.8 MMOL/L (3.6-5.0); URIC ACID 8.6 MG/DL (2.6-7.2)
== END ==
LOC: LAB 08:46
PROVIDERS: ATTEND Internal Medicine Nephrology
DX: E87.1 Hypo-osmolality and hyponatremia (principal); N17.9 Acute kidney failure, unspecified; E87.5 Hyperkalemia; R00.1 Bradycardia, unspecified
CPT/HCPCS: 36415; 80061; 80069; 82306; 82570; 83036; 83970; 84156; 84550; 85027

== ENCOUNTER → 2018-03-30 | Outpatient (CLI) | payer MEDICARE, MEDICAID ==
[2018-03-30 09:01] LABS: BILIRUBIN,URINE NEGATIVE (NEGATIVE); CLARITY,URINE CLEAR; COLOR,URINE YELLOW; GLUCOSE, URINE (UA) NEGATIVE (NEGATIVE); KETONES,URINE NEGATIVE (NEGATIVE); LEUKOCYTE ESTERASE ,URINE 3+ (NEGATIVE); NITRITE,URINE NEGATIVE (NEGATIVE); PH,URINE 5 (5-9); PROTEIN,URINE 1+ (NEGATIVE); UROBILINOGEN,URINE NORMAL (NORMAL)
[2018-03-30 09:15] LABS: BACTERIA,URINE FEW /HPF; SQUAMOUS EPITHELIAL CELL,UR 0-2 /HPF; WBC,URINE 25-50 /HPF
[2018-03-30 09:33] LABS: ALBUMIN 3.8 GM/DL (3.2-4.5); CALCIUM 9.7 MG/DL (8.5-10.1); CREATININE SERUM 1.22 MG/DL (0.60-1.30); PHOSPHORUS 3.7 MG/DL (2.3-4.7); POTASSIUM 3.6 MMOL/L (3.6-5.0); URIC ACID 8.5 MG/DL (2.6-7.2)
== END ==
LOC: LAB 08:38
PROVIDERS: ATTEND Nurse Practitioner
DX: N17.9 Acute kidney failure, unspecified (principal); E87.5 Hyperkalemia; E87.1 Hypo-osmolality and hyponatremia; R00.1 Bradycardia, unspecified; N18.3 Chronic kidney disease, stage 3 (moderate); E11.21 Type 2 diabetes mellitus with diabetic nephropathy; E78.5 Hyperlipidemia, unspecified; N25.0 Renal osteodystrophy; R80.9 Proteinuria, unspecified
CPT/HCPCS: 36415; 80069; 81000; 82570; 84156; 84550; 87088

== ENCOUNTER → 2018-05-12 | Outpatient (CLI) | payer MEDICARE, MEDICAID ==
[2018-05-12 09:01] LABS: HEMOGLOBIN 11.2 G/DL (11.5-16.0); MEAN PLATELET VOLUME 9.6 FL (7.4-10.4); RED BLOOD COUNT 3.86 10^6/uL (4.35-5.85); RED CELL DISTRIBUTION WIDTH 16.6 % (10.0-14.5); WHITE BLOOD COUNT 10.4 10^3/uL (4.3-11.0)
[2018-05-12 09:29] LABS: BILIRUBIN,URINE NEGATIVE (NEGATIVE); CLARITY,URINE VERY CLOUDY; COLOR,URINE YELLOW; GLUCOSE, URINE (UA) NEGATIVE (NEGATIVE); KETONES,URINE NEGATIVE (NEGATIVE); LEUKOCYTE ESTERASE ,URINE 3+ (NEGATIVE); NITRITE,URINE POSITIVE (NEGATIVE); PH,URINE 6 (5-9); PROTEIN,URINE 2+ (NEGATIVE); UROBILINOGEN,URINE NORMAL (NORMAL)
[2018-05-12 09:29] LABS: ALBUMIN 3.6 GM/DL (3.2-4.5); CALCIUM 9.3 MG/DL (8.5-10.1); CREATININE SERUM 1.13 MG/DL (0.60-1.30); MAGNESIUM 1.3 MG/DL (1.8-2.4); PHOSPHORUS 2.9 MG/DL (2.3-4.7); URIC ACID 4.9 MG/DL (2.6-7.2)
[2018-05-12 09:38] LABS: BACTERIA,URINE LARGE /HPF; SQUAMOUS EPITHELIAL CELL,UR 0-2 /HPF; WBC,URINE TNTC /HPF
== END ==
LOC: LAB 08:23
PROVIDERS: ATTEND Nurse Practitioner
DX: E78.5 Hyperlipidemia, unspecified (principal); E11.21 Type 2 diabetes mellitus with diabetic nephropathy; R00.1 Bradycardia, unspecified; E55.9 Vitamin D deficiency, unspecified; N17.9 Acute kidney failure, unspecified; E87.5 Hyperkalemia; E87.1 Hypo-osmolality and hyponatremia; N18.3 Chronic kidney disease, stage 3 (moderate); E11.22 Type 2 diabetes mellitus with diabetic chronic kidney disease; N25.0 Renal osteodystrophy; R80.9 Proteinuria, unspecified
CPT/HCPCS: 36415; 80061; 80069; 81000; 82306; 82570; 82728; 83540; 83735; 83970; 84156; 84550; 85027; 87088

== ENCOUNTER → 2018-06-18 | Outpatient (CLI) | payer MEDICARE, MEDICAID ==
[2018-06-18 08:49] LABS: ALBUMIN 3.7 GM/DL (3.2-4.5); BILIRUBIN,TOTAL 0.3 MG/DL (0.1-1.0); CALCIUM 9.3 MG/DL (8.5-10.1); CREATININE SERUM 1.13 MG/DL (0.60-1.30); POTASSIUM 3.7 MMOL/L (3.6-5.0); TOTAL PROTEIN 7.5 GM/DL (6.4-8.2)
== END ==
LOC: LAB 08:16
PROVIDERS: ATTEND Internal Medicine Cardiovascular Disease
DX: J44.9 Chronic obstructive pulmonary disease, unspecified (principal); E78.5 Hyperlipidemia, unspecified; I10 Essential (primary) hypertension; I44.4 Left anterior fascicular block; R06.02 Shortness of breath; Z87.891 Personal history of nicotine dependence
CPT/HCPCS: 36415; 80053; 80061

== ENCOUNTER → 2018-09-08 | Outpatient (CLI) | payer MEDICARE, MEDICAID ==
[2018-09-08 08:44] LABS: HEMOGLOBIN 12.9 G/DL (11.5-16.0); MEAN PLATELET VOLUME 9.6 FL (7.4-10.4)
[2018-09-08 08:48] LABS: BILIRUBIN,URINE NEGATIVE (NEGATIVE); CLARITY,URINE CLEAR; COLOR,URINE YELLOW; GLUCOSE, URINE (UA) NEGATIVE (NEGATIVE); KETONES,URINE NEGATIVE (NEGATIVE); LEUKOCYTE ESTERASE ,URINE 2+ (NEGATIVE); NITRITE,URINE NEGATIVE (NEGATIVE); PH,URINE 6 (5-9); PROTEIN,URINE NEGATIVE (NEGATIVE); UROBILINOGEN,URINE NORMAL (NORMAL)
[2018-09-08 09:07] LABS: ALBUMIN 3.6 GM/DL (3.2-4.5); CALCIUM 9.2 MG/DL (8.5-10.1); CREATININE SERUM 1.24 MG/DL (0.60-1.30); MAGNESIUM 1.6 MG/DL (1.8-2.4); PHOSPHORUS 3.6 MG/DL (2.3-4.7); POTASSIUM 3.5 MMOL/L (3.6-5.0); URIC ACID 6.1 MG/DL (2.6-7.2)
[2018-09-08 09:11] LABS: BACTERIA,URINE NEGATIVE /HPF
[2018-09-08 09:12] LABS: URINE CREATININE FOR RATIO 97 MG/DL (30-125); URINE PROTEIN FOR RATIO ONLY < 6 MG/DL (6-12)
== END ==
LOC: LAB 08:13
PROVIDERS: ATTEND Nurse Practitioner
DX: I13.0 Hypertensive heart and chronic kidney disease with heart failure and stage 1 through stage 4 chronic kidney disease, or unspecified chronic kidney disease (principal); E11.22 Type 2 diabetes mellitus with diabetic chronic kidney disease; N18.3 Chronic kidney disease, stage 3 (moderate); I50.9 Heart failure, unspecified; N17.9 Acute kidney failure, unspecified; E87.5 Hyperkalemia; E87.1 Hypo-osmolality and hyponatremia; R00.1 Bradycardia, unspecified; E11.21 Type 2 diabetes mellitus with diabetic nephropathy; E78.5 Hyperlipidemia, unspecified; N25.0 Renal osteodystrophy; R80.9 Proteinuria, unspecified; D63.1 Anemia in chronic kidney disease; R60.9 Edema, unspecified
CPT/HCPCS: 36415; 80069; 81000; 82306; 82570; 83735; 83970; 84156; 84550; 85027; 87088

== ENCOUNTER 2018-10-27 14:48 | Emergency (ER) | payer OTHER, MEDICARE, MEDICAID ==
[~2018-10-27] VITALS: Ht 154.9 cm; Wt 123.1 kg
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
--- NOTE | 2018-10-27 15:07 | NUR ---
PATIENT SA02 89%- 90 % TO ROOM PATIENT IS ON C PABB AT NIGHT PLACED ON 2LNC SAO2 UP TO 94%
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
[2018-10-27 16:09] VITALS: BP 139/69
== END 2018-10-27 16:09 | disposition home or self-care (01) ==
LOC: EDUNIT# 14:48 → ER 14:49
DX: S50.11XA Contusion of right forearm, initial encounter (principal); E11.40 Type 2 diabetes mellitus with diabetic neuropathy, unspecified; G47.30 Sleep apnea, unspecified; I10 Essential (primary) hypertension; E78.00 Pure hypercholesterolemia, unspecified; K21.9 Gastro-esophageal reflux disease without esophagitis; E66.01 Morbid (severe) obesity due to excess calories; E03.9 Hypothyroidism, unspecified; F32.9 Major depressive disorder, single episode, unspecified; Z88.5 Allergy status to narcotic agent; Z79.82 Long term (current) use of aspirin; Z79.4 Long term (current) use of insulin; Z87.891 Personal history of nicotine dependence; Z90.710 Acquired absence of both cervix and uterus; Z90.89 Acquired absence of other organs; Z82.49 Family history of ischemic heart disease and other diseases of the circulatory system; Z80.1 Family history of malignant neoplasm of trachea, bronchus and lung; V44.5XXA Car driver injured in collision with heavy transport vehicle or bus in traffic accident, initial encounter; Y92.410 Unspecified street and highway as the place of occurrence of the external cause
CPT/HCPCS: 73090

== ENCOUNTER → 2019-02-05 | Outpatient (CLI) | payer MEDICAID, MEDICARE, OTHER | LOC: CARD 12:27 | PROVIDERS: ATTEND Internal Medicine Cardiovascular Disease | DX: I05.8 Other rheumatic mitral valve diseases (principal); G47.33 Obstructive sleep apnea (adult) (pediatric); E78.2 Mixed hyperlipidemia; I44.4 Left anterior fascicular block; J44.9 Chronic obstructive pulmonary disease, unspecified; I10 Essential (primary) hypertension; Z87.891 Personal history of nicotine dependence | CPT/HCPCS: 93306 ==

== ENCOUNTER 2019-02-22 12:56 | Emergency (ER) | payer MEDICARE, MEDICAID ==
[~2019-02-22] VITALS: Ht 154 cm; Wt 109.7 kg
[2019-02-22] MEDS ORDERED: fentaNYL INJECTION 100 MCG/2 ML AMP IM ONE (14:00)
--- NOTE | 2019-02-22 14:09 | Diagnostic Imaging Report ---
Indication: Right shoulder injury 3 views of the right shoulder show a comminuted fracture of the proximal humerus involving the greater tuberosity and humeral neck. IMPRESSION: Comminuted nondisplaced fracture of the proximal right humerus. Dictated by: Dictated on workstation # [id number]
--- NOTE | 2019-02-22 14:21 | ED Upper Extremity ---
General Chief Complaint: Trauma-Non Activation Stated Complaint: FALL Nursing Triage Note: Pt to triage via WC with C/O right shoulder pain after a fall. Pt denies hitting head or LOC. Nursing Sepsis Screen: No Definite Risk (GISSELLE WADE) Source: patient Exam Limitations: no limitations (ZAINAB CAGLE MD) History of Present Illness Date Seen by Provider: Feb 22, 2019 Time Seen by Provider: 14:38 Initial Comments This 68-year-old white female presents after she evidently tripped and fell one G in her [facility] today with her striking her right shoulder. She is complaining of pain over the impact area. She denies other injury and her accident. Patient describes the pain as sharp in nature. It is severe and nonradiating. It is made worse with motion of the right shoulder. Patient denies associated loss of sensation or range of motion of the rest of the right upper extremity. (ZAINAB CAGLE MD) Allergies and Home Medications Allergies Coded Allergies: codeine (Verified Allergy, Severe, ITCHING, 03/09/17) Home Medications Acetaminophen 500 Mg Tablet, 1,000 MG PO Q6H PRN for PAIN-MILD, (Reported) Aspirin 81 Mg Tablet.dr, 81 MG PO DAILY, (Reported) Atorvastatin Calcium 40 Mg Tablet, 40 MG PO HS, (Reported) Cinnamon Bark 500 Mg Capsule, 500 MG PO BID, (Reported) Citalopram Hydrobromide 40 Mg Tablet, 40 MG PO DAILY, (Reported) Gabapentin 300 Mg Capsule, 600 MG PO BID, (Reported) TAKES 2 (300 MG) CAPSULES Hydrochlorothiazide 25 Mg Tablet, 25 MG PO DAILY, (Reported) Hydrocodone/Acetaminophen 1 Each Tablet, 1-2 EACH PO Q6H PRN for PAIN-MODERATE Prescribed by: ZAINAB CAGLE MD on 02/22/19 0337 Insulin Aspart 300 Units/3 Ml Solution, 15 UNITS SQ AC, (Reported) Insulin Degludec 200 Unit/1 Ml Insuln.pen, 40 UNIT SQ HS, (Reported) Levothyroxine Sodium 100 Mcg Tablet, 100 MCG PO DAILY, (Reported) Lisinopril 20 Mg Tablet, 20 MG PO DAILY, (Reported) LAST FILLED #30 2-27-18 Magnesium Oxide 500 Mg Capsule, 500 MG PO BID, (Reported) [place]-3 Fatty Acids/Fish Oil 1 Each Capsule, 2,400 MG PO BID, (Reported) TAKES 2 (1,200 MG) CAPSULES Oxycodone HCl/Acetaminophen 1 Each Tablet, 1 TAB PO Q6H PRN for PAIN-MODERATE, (Reported) Pioglitazone HCl 45 Mg Tablet, 45 MG PO DAILY, (Reported) Patient Home Medication List Home Medication List Reviewed: Yes (ZAINAB CAGLE MD) Review of Systems Constitutional: No chills EENTM: No ear pain Respiratory: No cough Cardiovascular: No chest pain Gastrointestinal: no symptoms reported Genitourinary: no symptoms reported Musculoskeletal: see HPI, joint pain (right shoulder) Skin: no symptoms reported; No change in color Psychiatric/Neurological: No Symptoms Reported (ZAINAB CAGLE MD) Past Sotlfdr-Xzwdms-Cirecc Hx Past Med/Social Hx: Reviewed Nursing Past Med/Soc Hx (ZAINAB CAGLE MD) Patient Social History Alcohol Use: Denies Use Recreational Drug Use: No Smoking Status: Former Smoker Type Used: Cigarettes Former Smoker, Quit: May 05, 1991 2nd Hand Smoke Exposure: No Recent Foreign Travel: No Contact w/Someone Who Travel: No Recent Infectious Disease Expo: No Recent Hopitalizations: No Physical Abuse: No Sexual Abuse: No Mistreated: No Fear: No (GISSELLE WADE) Immunizations Up To Date Tetanus Booster (TDap): More than 5yrs Date of Pneumonia Vaccine: Feb 02, 2017 Date of Influenza Vaccine: Jan 03, 2019 (GISSELLE WADE) Seasonal Allergies Seasonal Allergies: No (GISSELLE WADE) Past Medical History Surgeries: Yes Adenoidectomy, Hysterectomy, Oophorectomy, Orthopedic, Tonsillectomy Respiratory: Yes Sleep Apnea Currently Using CPAP: Yes Cardiac: Yes (STRESS TEST 05/21/17--NORMAL, EF 69%) High Cholesterol, Hypertension Neurological: Yes Neuropathy 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, 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 Sexually Transmitted Disease: No Genitourinary: No Gastrointestinal: Yes Gastroesophageal Reflux Musculoskeletal: Yes Endocrine: Yes (DM Type II; MORBID OBESITY) Diabetes, Insulin dep, Hypothyroidsim HEENT: Yes Cataract Cancer: No Psychosocial: Yes Depression Integumentary: No Blood Disorders: No Adverse Reaction/Blood Tranf: No (GISSELLE WADE) Family Medical History Alzheimer's disease 19 MOTHER Diabetes mellitus G8 BROTHER FH: anemia G8 SISTER FH: congestive heart failure 19 FATHER FH: emphysema 19 FATHER 19 MOTHER G8 SISTER FH: lung cancer G8 SISTER FH: sleep apnea G8 SISTER Heart murmur 19 FATHER Hypertension G8 BROTHER Psychosocial problem G8 SISTER Physical Exam Vital Signs Vital Signs - First Documented 02/22/19 13:30 Temp 36.2 Pulse 54 Resp 19 B/P (MAP) 155/52 (86) Pulse Ox 98 O2 Delivery Room Air (ZAINAB CAGLE MD) Vital Signs Capillary Refill : Less Than 3 Seconds (GISSELLE WADE) Height, Weight, BMI Height: 5'1.00" Weight: 271lbs. 7.6oz. 123.904694cl; 46.00 BMI Method:Stated (GISSELLE WADE) General Appearance: WD/WN, mild distress HEENT: normal ENT inspection Neck: full range of motion Cardiovascular: regular rate, rhythm Respiratory: chest non-tender, lungs clear Gastrointestinal: non tender, soft Shoulder: bone tenderness (over the right shoulder) Elbow/Forearm: normal inspection Wrist: Yes normal inspection Hand: normal inspection Neurologic/Tendon: normal sensation, normal motor functions Neurologic/Psychiatric: no motor/sensory deficits, alert, normal mood/affect Skin: normal color, warm/dry (ZAINAB CAGLE MD) Progress/Results/Core Measures Results/Orders My Orders Orders - ZAINAB CAGLE MD Fentanyl Injection (Sublimaze Injection (02/22/19 14:00) (ZAINAB CAGLE MD) Medications Given in ED Current Medications Medications Dose Ordered Sig/Jaleel Route Start Time Stop Time Status Last Admin Dose Admin Fentanyl Citrate 50 mcg ONCE ONCE IM 02/22/19 14:00 02/22/19 14:01 DC 02/22/19 14:02 50 MCG (ZAINAB CAGLE MD) Vital Signs/I&O 02/22/19 13:30 Temp 36.2 Pulse 54 Resp 19 B/P (MAP) 155/52 (86) Pulse Ox 98 O2 Delivery Room Air (ZAINAB CAGLE MD) Blood Pressure Mean: 86 Progress Progress Note : Time: 14:42 Progress Note The patient's x-ray demonstrates a fracture of the right humeral head. Patient received 50 g with some improvement in her pain. Patient was placed in a sling and swath. Patient was referred to her orthopedic surgeon. She was asked to call for follow-up this week. (ZAINAB CAGLE MD) Diagnostic Imaging Diagonstic Imaging: Xray Comments NAME: [facility] REC#: [id number] PHYSICIAN: GISSELLE WADE CC: KIMBERLY MONROE MD; GISSELLE WADE Page 1 of 1 RADIOLOGY REPORT [facility] [place] [place] CC: KIMBERLY MONROE MD; GISSELLE WADE Page 1 of 1 RADIOLOGY REPORT NAME: [facility] REC#: [id number] PT STATUS: REG ER : 1950 PHYSICIAN: GISSELLE WADE ADMIT DATE: 02/22/19/ER Signed Date of Exam: 02/22/19 SHOULDER, RIGHT, 3 VIEWS Indication: Right shoulder injury 3 views of the right shoulder show a comminuted fracture of the proximal humerus involving the greater tuberosity and humeral neck. IMPRESSION: Comminuted nondisplaced fracture of the proximal right humerus. Dictated by: Dictated on workstation # [id number] Dict: 02/22/19 140 Trans: 02/22/19 140 Interpreted by: KIMBERLY MONROE MD Electronically signed by: KIMBERLY MONROE MD 02/22/191407 Reviewed: Reviewed by Me (GISSELLE WADE) Departure Impression Primary Impression: Shoulder fracture, right Qualified Codes: S42.91XA - Fracture of right shoulder girdle, part uns pecified, initial encounter for closed fracture Disposition: HOME, SELF-CARE Condition: Improved Departure-Patient Inst. Decision time for Depature: 14:44 (ZAINAB CAGLE MD) Referrals: LIZETH TALBOT DO (PCP) Primary Care Physician NIKOLAS JACOB (Family) Primary Care Physician LYN SOLIS DO Patient Instructions: Shoulder Fracture (DC) Add. Discharge Instructions: Close follow-up Dr. Solis. Shoulder immobilizer for comfort. Vicodin for pain. Return of any problems or questions. All discharge instructions reviewed with patient and/or family. Voiced understanding. Scripts Hydrocodone/Acetaminophen (Vicodin 5-300 mg Tablet) 1 Each Tablet 1-2 EACH PO Q6H PRN for PAIN-MODERATE MDD 10 for 7 Days, #30 TAB Prov: ZAINAB CAGLE MD 02/22/19 GISSELLE WADE Feb 22, 2019 14:21 ZAINAB CAGLE MD Feb 22, 2019 14:44
[2019-02-22] MEDS ORDERED: HYDR-3455 PO (14:47)
[2019-02-22] MEDS ORDERED: fentaNYL INJECTION 100 MCG/2 ML AMP IJ ONE (15:15)
[2019-02-22 15:16] VITALS: BP 155/52
== END 2019-02-22 15:16 | disposition home or self-care (01) ==
LOC: EDUNIT# 12:56 → ER 12:57
DX: S42.91XA Fracture of right shoulder girdle, part unspecified, initial encounter for closed fracture (principal); I10 Essential (primary) hypertension; E78.00 Pure hypercholesterolemia, unspecified; E11.40 Type 2 diabetes mellitus with diabetic neuropathy, unspecified; F32.9 Major depressive disorder, single episode, unspecified; E66.01 Morbid (severe) obesity due to excess calories; K21.9 Gastro-esophageal reflux disease without esophagitis; Z88.5 Allergy status to narcotic agent; Z79.82 Long term (current) use of aspirin; Z79.4 Long term (current) use of insulin; Z87.891 Personal history of nicotine dependence; Z90.89 Acquired absence of other organs; Z90.710 Acquired absence of both cervix and uterus; Z82.49 Family history of ischemic heart disease and other diseases of the circulatory system; Z80.1 Family history of malignant neoplasm of trachea, bronchus and lung; Z68.42 Body mass index [BMI] 45.0-49.9, adult; W01.198A Fall on same level from slipping, tripping and stumbling with subsequent striking against other object, initial encounter
CPT/HCPCS: 73030

== ENCOUNTER → 2019-03-02 | Outpatient (CLI) | payer MEDICARE, MEDICAID ==
[~2019-03-02] MED LIST changes: +HYDR-3455 PO
[2019-03-02 10:29] LABS: HEMOGLOBIN 12.4 G/DL (11.5-16.0); MEAN PLATELET VOLUME 9.4 FL (7.4-10.4); RED CELL DISTRIBUTION WIDTH 15.9 % (10.0-14.5); WHITE BLOOD COUNT 12.8 10^3/uL (4.3-11.0)
[2019-03-02 10:55] LABS: ALBUMIN 3.6 GM/DL (3.2-4.5); CALCIUM 9.5 MG/DL (8.5-10.1); CREATININE SERUM 1.42 MG/DL (0.60-1.30); POTASSIUM 3.4 MMOL/L (3.6-5.0)
== END ==
LOC: LAB 10:11
PROVIDERS: ATTEND Nurse Practitioner
DX: I13.0 Hypertensive heart and chronic kidney disease with heart failure and stage 1 through stage 4 chronic kidney disease, or unspecified chronic kidney disease (principal); N17.9 Acute kidney failure, unspecified; E87.5 Hyperkalemia; E87.1 Hypo-osmolality and hyponatremia; N18.3 Chronic kidney disease, stage 3 (moderate); E11.22 Type 2 diabetes mellitus with diabetic chronic kidney disease; E11.21 Type 2 diabetes mellitus with diabetic nephropathy; E78.5 Hyperlipidemia, unspecified; N25.0 Renal osteodystrophy; D63.1 Anemia in chronic kidney disease; I50.9 Heart failure, unspecified
CPT/HCPCS: 36415; 80069; 82306; 83970; 84550; 85027

== ENCOUNTER 2019-05-10 16:23 | Emergency (ER) | payer MEDICARE, MEDICAID ==
[~2019-05-10] VITALS: Ht 154 cm; Wt 109.7 kg
[~2019-05-10 16:23] MED LIST changes: +DEXTROSE 50% 50 ML (IMS) SYR ONE
--- NOTE | 2019-05-10 16:36 | ED General ---
General Stated Complaint: LOW BLOOD SUGAR Source of Information: Patient Exam Limitations: No Limitations History of Present Illness Date Seen by Provider: May 10, 2019 Time Seen by Provider: 16:17 Initial Comments Here from lab with the assistance of the laborer/key man after patient became somewhat unresponsive they are during blood draw. Apparently she was doing fasting laboratory work and had issue with low blood sugar. Patient was noted to have blood sugar 41 L. She did try this sucking on a piece of candy and became more somnolent and was rapidly transported to the emergency department for further evaluation. On arrival, she is talking but quite weak and admits that she hasn't eaten today but did take her insulin. Denies injury or concerns. Moving all extremities. Timing/Duration: 1/2 Hour Severity: Moderate Modifying Factors: improves with Rest Associated Systoms: No Nausea/Vomiting; Weakness Allergies and Home Medications Allergies Coded Allergies: codeine (Verified Allergy, Severe, ITCHING, 03/09/17) Home Medications Acetaminophen 500 Mg Tablet, 1,000 MG PO Q6H PRN for PAIN-MILD, (Reported) Aspirin 81 Mg Tablet.dr, 81 MG PO DAILY, (Reported) Atorvastatin Calcium 40 Mg Tablet, 40 MG PO HS, (Reported) Cinnamon Bark 500 Mg Capsule, 500 MG PO BID, (Reported) Citalopram Hydrobromide 40 Mg Tablet, 40 MG PO DAILY, (Reported) Gabapentin 300 Mg Capsule, 600 MG PO BID, (Reported) TAKES 2 (300 MG) CAPSULES Hydrochlorothiazide 25 Mg Tablet, 25 MG PO DAILY, (Reported) Hydrocodone/Acetaminophen 1 Each Tablet, 1-2 EACH PO Q6H PRN for PAIN-MODERATE Prescribed by: ZAINAB CAGLE MD on 02/22/19 6112 Insulin Aspart 300 Units/3 Ml Solution, 15 UNITS SQ AC, (Reported) Insulin Degludec 200 Unit/1 Ml Insuln.pen, 40 UNIT SQ HS, (Reported) Levothyroxine Sodium 100 Mcg Tablet, 100 MCG PO DAILY, (Reported) Lisinopril 20 Mg Tablet, 20 MG PO DAILY, (Reported) LAST FILLED #30 --18 Magnesium Oxide 500 Mg Capsule, 500 MG PO BID, (Reported) [place]-3 Fatty Acids/Fish Oil 1 Each Capsule, 2,400 MG PO BID, (Reported) TAKES 2 (1,200 MG) CAPSULES Oxycodone HCl/Acetaminophen 1 Each Tablet, 1 TAB PO Q6H PRN for PAIN-MODERATE, (Reported) Pioglitazone HCl 45 Mg Tablet, 45 MG PO DAILY, (Reported) Patient Home Medication List Home Medication List Reviewed: Yes Review of Systems Review of Systems Constitutional: see HPI; No chills, No fever Respiratory: no symptoms reported Cardiovascular: no symptoms reported Gastrointestinal: no symptoms reported Genitourinary: no symptoms reported Psychiatric/Neurological: See HPI Past Knhtkyh-Dzwbou-Kupuzi Hx Past Med/Social Hx: Reviewed Nursing Past Med/Soc Hx Patient Social History Alcohol Use: Denies Use Recreational Drug Use: No Smoking Status: Former Smoker Type Used: Cigarettes Former Smoker, Quit: May 05, 1991 2nd Hand Smoke Exposure: No Recent Hopitalizations: No Immunizations Up To Date Tetanus Booster (TDap): More than 5yrs Date of Pneumonia Vaccine: Feb 02, 2017 Date of Influenza Vaccine: Jan 03, 2019 Seasonal Allergies Seasonal Allergies: No Past Medical History Surgeries: Yes Adenoidectomy, Hysterectomy, Oophorectomy, Orthopedic, Tonsillectomy Respiratory: Yes Sleep Apnea Currently Using CPAP: Yes Cardiac: Yes (STRESS TEST 05/21/17--NORMAL, EF 69%) High Cholesterol, Hypertension Neurological: Yes Neuropathy 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, 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 Sexually Transmitted Disease: No Genitourinary: No Gastrointestinal: Yes Gastroesophageal Reflux Musculoskeletal: Yes Endocrine: Yes (DM Type II; MORBID OBESITY) Diabetes, Insulin dep, Hypothyroidsim HEENT: Yes Cataract Cancer: No Psychosocial: Yes Depression Integumentary: No Blood Disorders: No Adverse Reaction/Blood Tranf: No Family Medical History Reviewed Nursing Family Hx Alzheimer's disease 19 MOTHER Diabetes mellitus G8 BROTHER FH: anemia G8 SISTER FH: congestive heart failure 19 FATHER FH: emphysema 19 FATHER 19 MOTHER G8 SISTER FH: lung cancer G8 SISTER FH: sleep apnea G8 SISTER Heart murmur 19 FATHER Hypertension G8 BROTHER Psychosocial problem G8 SISTER Physical Exam Vital Signs Vital Signs - First Documented 05/10/19 16:37 Temp 36.4 Pulse 70 Resp 18 B/P (MAP) 145/82 (103) Pulse Ox 97 Capillary Refill : Height, Weight, BMI Height: 5'1.00" Weight: 271lbs. 7.6oz. 123.272611lz; 46.00 BMI Method:Stated General Appearance: No Apparent Distress, WD/WN HEENT: PERRL/EOMI, Pharynx Normal Neck: Non Tender, Supple Respiratory: Lungs Clear, Normal Breath Sounds Cardiovascular: Regular Rate, Rhythm, No Murmur Gastrointestinal: Non Tender, Soft Back: Normal Inspection, No CVA Tenderness, No Vertebral Tenderness Extremity: Non Tender, No Calf Tenderness Neurologic/Psychiatric: Alert, Oriented x3 (after administration of D50), Other (normal mentation after administration of D50. She did have some slurred speech and little weakness before.) Skin: Normal Color, Warm/Dry Progress/Results/Core Measures Suspected Sepsis SIRS Temperature: Pulse: Respiratory Rate: Laboratory Tests 05/10/19 16:30: White Blood Count 10.9 Blood Pressure / Mean: Laboratory Tests 05/10/19 16:30: Creatinine 0.93, Platelet Count 223, Total Bilirubin 0.3 Results/Orders Lab Results Laboratory Tests Test 05/10/19 16:28 05/10/19 16:30 Range/Units Glucometer 46 *L 70-110 MG/DL White Blood Count 10.9 4.3-11.0 10^3/uL Red Blood Count 3.38 L 4.35-5.85 10^6/uL Hemoglobin 10.6 L 11.5-16.0 G/DL Hematocrit 33 L 35-52 % Mean Corpuscular Volume 99 80-99 FL Mean Corpuscular Hemoglobin 31 25-34 PG Mean Corpuscular Hemoglobin Concent 32 32-36 G/DL Red Cell Distribution Width 16.3 H 10.0-14.5 % Platelet Count 223 130-400 10^3/uL Mean Platelet Volume 9.5 7.4-10.4 FL Neutrophils (%) (Auto) 80 H 42-75 % Lymphocytes (%) (Auto) 10 L 12-44 % Monocytes (%) (Auto) 8 0-12 % Eosinophils (%) (Auto) 2 0-10 % Basophils (%) (Auto) 1 0-10 % Neutrophils # (Auto) 8.7 H 1.8-7.8 X 10^3 Lymphocytes # (Auto) 1.1 1.0-4.0 X 10^3 Monocytes # (Auto) 0.8 0.0-1.0 X 10^3 Eosinophils # (Auto) 0.2 0.0-0.3 10^3/uL Basophils # (Auto) 0.1 0.0-0.1 10^3/uL Sodium Level 138 135-145 MMOL/L Potassium Level 3.4 L 3.6-5.0 MMOL/L Chloride Level 103 98-107 MMOL/L Carbon Dioxide Level 27 21-32 MMOL/L Anion Gap 8 5-14 MMOL/L Blood Urea Nitrogen 14 7-18 MG/DL Creatinine 0.93 0.60-1.30 MG/DL Estimat Glomerular Filtration Rate 60 BUN/Creatinine Ratio 15 Glucose Level 167 H 70-105 MG/DL Calcium Level 8.4 L 8.5-10.1 MG/DL Corrected Calcium 9.0 8.5-10.1 MG/DL Total Bilirubin 0.3 0.1-1.0 MG/DL Aspartate Amino Transf (AST/SGOT) 18 5-34 U/L Alanine Aminotransferase (ALT/SGPT) < 6 0-55 U/L Alkaline Phosphatase 71 40-136 U/L Total Protein 6.6 6.4-8.2 GM/DL Albumin 3.3 3.2-4.5 GM/DL My Orders Orders - KIMBERLY STEELE MD General/Regular (05/10/19 Dinner) Cbc With Automated Diff (05/10/19 16:36) Comprehensive Metabolic Panel (05/10/19 16:36) Ed Iv/Invasive Line Start (05/10/19 16:36) D50w (Emergency) Syringe (Dextrose 50% 5 (05/10/19 16:45) Accucheck Stat ONCE (05/10/19 17:15) Medications Given in ED Current Medications Medications Dose Ordered Sig/Jaleel Route Start Time Stop Time Status Last Admin Dose Admin Dextrose 50 ml ONCE ONCE IV 05/10/19 16:45 05/10/19 16:46 DC 05/10/19 16:30 50 ML Vital Signs/I&O 05/10/19 16:37 Temp 36.4 Pulse 70 Resp 18 B/P (MAP) 145/82 (103) Pulse Ox 97 Capillary Refill : Progress Note : Progress Note Seen and evaluated. IV, D50 of 50 mL infused. Patient has returned normal mentation. We will check basic labs and blood for the lab draw that she needed. She will be fed a meal. Monitor patient. 1714: Overall doing much better. Tolerated meal. Discharged home with return precautions. Patient verbalize understanding instructions and agreement with plan. Departure Impression Primary Impression: Hypoglycemia associated with diabetes Disposition: 01 HOME, SELF-CARE Condition: Improved Departure-Patient Inst. Decision time for Depature: 17:16 Referrals: LIZETH TALBOT DO (PCP) Primary Care Physician NIKOLAS JACOB (Family) Primary Care Physician Patient Instructions: Low Blood Sugar in People With Diabetes Add. Discharge Instructions: Continue previous medications. Make sure you eat your prescribed diet. Continue to monitor your blood sugar and keep in a normal range. Follow up with your Dr. in a few days for recheck as needed. Return for worse pain, vomiting, weakness, breathing problems, vision or balance problems or other concerns as needed. KIMBERLY STEELE MD May 10, 2019 16:36
[2019-05-10 16:43] LABS: BASOPHILS # (AUTO) 0.1 10^3/uL (0.0-0.1); BASOPHILS % (AUTO) 1 % (0-10); EOSINOPHILS # (AUTO) 0.2 10^3/uL (0.0-0.3); EOSINOPHILS % (AUTO) 2 % (0-10); HEMATOCRIT 33 % (35-52); HEMOGLOBIN 10.6 G/DL (11.5-16.0); LYMPHOCYTES # (AUTO) 1.1 X 10^3 (1.0-4.0); LYMPHOCYTES % (AUTO) 10 % (12-44); MEAN CORPUSCULAR HEMOGLOBIN 31 PG (25-34); MEAN CORPUSCULAR HGB CONC 32 G/DL (32-36); MEAN CORPUSCULAR VOLUME 99 FL (80-99); MEAN PLATELET VOLUME 9.5 FL (7.4-10.4); MONOCYTES # (AUTO) 0.8 X 10^3 (0.0-1.0); MONOCYTES % (AUTO) 8 % (0-12); NEUTROPHILS # (AUTO) 8.7 X 10^3 (1.8-7.8); NEUTROPHILS % (AUTO) 80 % (42-75); PLATELET COUNT 223 10^3/uL (130-400); RED CELL DISTRIBUTION WIDTH 16.3 % (10.0-14.5); WHITE BLOOD COUNT 10.9 10^3/uL (4.3-11.0)
[2019-05-10] MEDS ORDERED: DEXTROSE 50% 50 ML (IMS) SYR IV ONE (16:45)
--- NOTE | 2019-05-10 17:00 | NUR ---
MEAL TRAY TO PT AT THIS TIME.
[2019-05-10 17:03] LABS: ALANINE AMINOTRANSFERASE < 6 U/L (0-55); ALBUMIN 3.3 GM/DL (3.2-4.5); ALKALINE PHOSPHATASE 71 U/L (40-136); BILIRUBIN,TOTAL 0.3 MG/DL (0.1-1.0); BUN/CREATININE RATIO 15; CALCIUM 8.4 MG/DL (8.5-10.1); CARBON DIOXIDE 27 MMOL/L (21-32); CHLORIDE 103 MMOL/L (98-107); CREATININE SERUM 0.93 MG/DL (0.60-1.30); GFR ESTIMATED 60; GLUCOSE 167 MG/DL (70-105); POTASSIUM 3.4 MMOL/L (3.6-5.0); SODIUM 138 MMOL/L (135-145); TOTAL PROTEIN 6.6 GM/DL (6.4-8.2)
[2019-05-10 17:28] VITALS: BP 134/71
== END 2019-05-10 17:28 | disposition home or self-care (01) ==
LOC: EDUNIT# 16:23 → ER 16:24
DX: E11.649 Type 2 diabetes mellitus with hypoglycemia without coma (principal); I10 Essential (primary) hypertension; E78.00 Pure hypercholesterolemia, unspecified; E11.40 Type 2 diabetes mellitus with diabetic neuropathy, unspecified; G47.30 Sleep apnea, unspecified; K21.9 Gastro-esophageal reflux disease without esophagitis; E03.9 Hypothyroidism, unspecified; F32.9 Major depressive disorder, single episode, unspecified; E66.01 Morbid (severe) obesity due to excess calories; Z99.89 Dependence on other enabling machines and devices; Z88.5 Allergy status to narcotic agent; Z79.82 Long term (current) use of aspirin; Z79.4 Long term (current) use of insulin; Z87.891 Personal history of nicotine dependence; Z90.89 Acquired absence of other organs; Z90.710 Acquired absence of both cervix and uterus; Z82.49 Family history of ischemic heart disease and other diseases of the circulatory system; Z80.1 Family history of malignant neoplasm of trachea, bronchus and lung; Z68.42 Body mass index [BMI] 45.0-49.9, adult
CPT/HCPCS: 36415; 80053; 82962; 85025; 96374

== ENCOUNTER → 2019-05-10 | Outpatient (CLI) | payer MEDICARE, MEDICAID ==
[2019-05-10 16:41] LABS: HEMOGLOBIN 10.7 G/DL (11.5-16.0); MEAN PLATELET VOLUME 9.7 FL (7.4-10.4); RED CELL DISTRIBUTION WIDTH 16.2 % (10.0-14.5); WHITE BLOOD COUNT 10.9 10^3/uL (4.3-11.0)
[2019-05-10 17:04] LABS: ALBUMIN 3.3 GM/DL (3.2-4.5); BUN/CREATININE RATIO 15; CALCIUM 8.4 MG/DL (8.5-10.1); CARBON DIOXIDE 26 MMOL/L (21-32); CHLORIDE 103 MMOL/L (98-107); CREATININE SERUM 0.91 MG/DL (0.60-1.30); GFR ESTIMATED > 60; GLUCOSE 167 MG/DL (70-105); PHOSPHORUS 3.1 MG/DL (2.3-4.7); POTASSIUM 3.4 MMOL/L (3.6-5.0); SODIUM 138 MMOL/L (135-145); URIC ACID 5.4 MG/DL (2.6-7.2)
== END ==
LOC: LAB 15:47
PROVIDERS: ATTEND Nurse Practitioner
DX: I13.0 Hypertensive heart and chronic kidney disease with heart failure and stage 1 through stage 4 chronic kidney disease, or unspecified chronic kidney disease (principal); N17.9 Acute kidney failure, unspecified; E11.22 Type 2 diabetes mellitus with diabetic chronic kidney disease; E87.1 Hypo-osmolality and hyponatremia; R00.1 Bradycardia, unspecified; N18.3 Chronic kidney disease, stage 3 (moderate); E11.21 Type 2 diabetes mellitus with diabetic nephropathy; E87.5 Hyperkalemia; D63.1 Anemia in chronic kidney disease; N25.0 Renal osteodystrophy; I50.9 Heart failure, unspecified; R60.9 Edema, unspecified
CPT/HCPCS: 36415; 80069; 82306; 83970; 84550; 85027

== ENCOUNTER → 2019-06-01 | Outpatient (CLI) | payer MEDICAID, MEDICARE ==
[~2019-06-01] MED LIST changes: -DEXTROSE 50% 50 ML (IMS) SYR ONE; +METF500T19 PO; -METF500T8 PO
--- NOTE | 2019-06-01 15:18 | Diagnostic Imaging Report ---
INDICATION: Screening for osteoporosis. COMPARISON: None. FINDINGS: The bone mineral density of the hips and spine was measured. There are no prior studies available for comparison. The T-score for the spine is 0.5. The total T-score for the left hip is -0.9. Both of these values are within normal limits. The total T-score for the right hip is -1.1. The T-score for the left femoral neck is -1.5 and for the right femoral neck -1.7. AP Spine L1-L4: [BMD (g/cm2): 1.254] [T-Score: 0.5] [Z-Score: 0.9] [BMD Previous: NA] [BMD % Change: NA] LT Hip Neck: [BMD (g/cm2): 0.826] [T-Score: -1.5] [Z-Score: -0.7] LT Hip Total: [BMD (g/cm2):0.894] [T-Score:-0.9] [Z-Score: -0.4] [BMD Previous: NA] [BMD % Change: NA] RT Hip Neck: [BMD (g/cm2):0.804] [T-Score:-1.7] [Z-Score:-0.9] RT Hip Total: [BMD (g/cm2):.863] [T-score:-1.1] [Z-Score:-0.7] [BMD Previous:NA] [BMD % Change:NA] *Indicates significant change from prior examination based on 95% confidence level. World Health Organization criteria for BMD interpretation classify patients as Normal (T-score at or above -1.0), Osteopenic (T-score between -1.0 and -2.5) or Osteoporotic (T-score at or below -2.5). LIMITATIONS AND MODIFICATION: None. FRACTURE RISK (FRAX SCORE): The ten year probability of (%): Major Osteoporotic Fracture: [13.7] Hip Fracture: [1.6] IMPRESSION: 1. The T-score for the spine and the total T-score for the left hip are within normal limits. 2. The total T-score for the right hip and the T-score for the femoral necks indicate osteopenia, however. 3. See below National Osteoporosis Foundation guidelines on when to potentially initiate pharmacologic therapy. Based on the National Osteoporosis Foundation Guidelines, pharmacologic treatment should be initiated in any of the following, unless clinical conditions suggest otherwise: * Any patient with prior fragility fracture of the hip or vertebrae. A spine fracture indicates 5X risk for subsequent spine fracture and 2X risk for subsequent hip fracture. * Osteoporosis (T-score <-2.5). * Postmenopausal women and men age 50 and older with low bone mass/osteopenia (T-score between -1.0 and -2.5) by DXA and 10-year major osteoporotic fracture greater than 20% or a 10-year probability of hip fracture greater than 3%. These fracture risks are supplied above in the FRAX score, if applicable. * Clinician judgment and/or patient preferences may indicate treatment for people with 10-year fracture probabilities above or below these levels. Dictated by: Dictated on workstation # [id number]
--- NOTE | 2019-06-01 16:19 | Diagnostic Imaging Report ---
INDICATION: Routine screening. COMPARISON: 10/03/2015 and 11/30/2013. TECHNIQUE: 2D and 3D bilateral screening mammography was performed with CAD. FINDINGS: Both breasts are primarily involutional. There are benign calcifications bilaterally. No mass or malignant appearing microcalcifications are seen. The axillae are unremarkable. IMPRESSION: No mammographic features suspicious for malignancy are identified. ACR BI-RADS Category 2: Benign findings. Result letter will be mailed to the patient. Note: At least 10% of breast cancer is not imaged by mammography. Dictated by: Dictated on workstation # [id number]
== END ==
LOC: RAD 13:27
PROVIDERS: ATTEND Nurse Practitioner Community Health
DX: Z13.820 Encounter for screening for osteoporosis (principal); Z12.31 Encounter for screening mammogram for malignant neoplasm of breast; N95.9 Unspecified menopausal and perimenopausal disorder
CPT/HCPCS: 77067; 77080

== ENCOUNTER → 2019-10-19 | Outpatient (CLI) | payer MEDICARE ==
[~2019-10-19] MED LIST changes: +METF-865 PO; -METF500T19 PO
[2019-10-19 10:06] LABS: BILIRUBIN,URINE NEGATIVE (NEGATIVE); CLARITY,URINE CLEAR; COLOR,URINE YELLOW; GLUCOSE, URINE (UA) NEGATIVE (NEGATIVE); KETONES,URINE NEGATIVE (NEGATIVE); LEUKOCYTE ESTERASE ,URINE 2+ (NEGATIVE); NITRITE,URINE NEGATIVE (NEGATIVE); PROTEIN,URINE NEGATIVE (NEGATIVE)
[2019-10-19 10:13] LABS: BASOPHILS % (AUTO) 0 % (0-10); EOSINOPHILS # (AUTO) 0.2 10^3/uL (0.0-0.3); EOSINOPHILS % (AUTO) 2 % (0-10); HEMATOCRIT 41 % (35-52); HEMOGLOBIN 13.2 G/DL (11.5-16.0); LYMPHOCYTES # (AUTO) 1.5 X 10^3 (1.0-4.0); LYMPHOCYTES % (AUTO) 14 % (12-44); MEAN CORPUSCULAR HEMOGLOBIN 31 PG (25-34); MEAN CORPUSCULAR HGB CONC 32 G/DL (32-36); MEAN CORPUSCULAR VOLUME 97 FL (80-99); MONOCYTES # (AUTO) 0.8 X 10^3 (0.0-1.0); MONOCYTES % (AUTO) 8 % (0-12); NEUTROPHILS # (AUTO) 8.1 X 10^3 (1.8-7.8); NEUTROPHILS % (AUTO) 76 % (42-75); PLATELET COUNT 224 10^3/uL (130-400); RED CELL DISTRIBUTION WIDTH 15.3 % (10.0-14.5); WHITE BLOOD COUNT 10.7 10^3/uL (4.3-11.0)
[2019-10-19 10:15] LABS: BACTERIA,URINE NEGATIVE /HPF; RBC,URINE 0-2 /HPF; SQUAMOUS EPITHELIAL CELL,UR RARE /HPF
[2019-10-19 10:37] LABS: ALBUMIN 3.8 GM/DL (3.2-4.5); CALCIUM 9.8 MG/DL (8.5-10.1); CREATININE SERUM 1.26 MG/DL (0.60-1.30); PHOSPHORUS 3.7 MG/DL (2.3-4.7); POTASSIUM 3.3 MMOL/L (3.6-5.0); URIC ACID 5.9 MG/DL (2.6-7.2)
== END ==
LOC: LAB 09:34
PROVIDERS: ATTEND Nurse Practitioner
DX: I13.0 Hypertensive heart and chronic kidney disease with heart failure and stage 1 through stage 4 chronic kidney disease, or unspecified chronic kidney disease (principal); I50.9 Heart failure, unspecified; N18.3 Chronic kidney disease, stage 3 (moderate); E11.21 Type 2 diabetes mellitus with diabetic nephropathy; E78.5 Hyperlipidemia, unspecified; N25.0 Renal osteodystrophy; R80.9 Proteinuria, unspecified; D63.1 Anemia in chronic kidney disease
CPT/HCPCS: 36415; 80069; 81000; 82306; 82570; 83970; 84156; 84550; 85025; 87088

== ENCOUNTER → 2020-03-29 | Outpatient (CLI) | payer MEDICARE ==
[2020-03-29 09:33] LABS: HEMOGLOBIN 10.9 g/dL (11.5-16.0); MEAN PLATELET VOLUME 10.2 fL (9.0-12.2); WHITE BLOOD COUNT 6.4 10^3/uL (4.3-11.0)
[2020-03-29 09:42] LABS: BILIRUBIN,URINE NEGATIVE (NEGATIVE); CLARITY,URINE CLEAR; COLOR,URINE YELLOW; GLUCOSE, URINE (UA) NEGATIVE (NEGATIVE); KETONES,URINE NEGATIVE (NEGATIVE); LEUKOCYTE ESTERASE ,URINE TRACE (NEGATIVE); NITRITE,URINE NEGATIVE (NEGATIVE); PROTEIN,URINE NEGATIVE (NEGATIVE)
[2020-03-29 09:52] LABS: ALBUMIN 3.7 GM/DL (3.2-4.5); POTASSIUM 3.8 MMOL/L (3.6-5.0)
[2020-03-29 09:54] LABS: CALCIUM 8.6 MG/DL (8.5-10.1)
[2020-03-29 09:58] LABS: CREATININE SERUM 1.21 MG/DL (0.60-1.30); PHOSPHORUS 3.5 MG/DL (2.3-4.7)
[2020-03-29 10:01] LABS: BACTERIA,URINE TRACE /HPF; HYALINE CASTS, URINE RARE /LPF; RBC,URINE RARE /HPF
[2020-03-29 10:01] LABS: URIC ACID 4.9 MG/DL (2.6-7.2)
== END ==
LOC: LAB 08:51
PROVIDERS: ATTEND Nurse Practitioner
DX: N18.30 Chronic kidney disease, stage 3 unspecified (principal)
CPT/HCPCS: 36415; 80069; 81000; 82570; 83970; 84156; 84550; 85027; 87088

== ENCOUNTER → 2020-07-07 | Outpatient (CLI) | payer MEDICARE ==
[~2020-07-07] MED LIST changes: -LISI-552 PO; -LISI10TA2 PO; +LISI10TA25 PO; +LISI20TA26 PO; -OXYC-471 PO; +OXYC1TAB11 PO
== END ==
LOC: WOUNDCARE 11:35
PROVIDERS: ATTEND Orthopaedic Surgery Hand Surgery
DX: L97.211 Non-pressure chronic ulcer of right calf limited to breakdown of skin (principal); I89.0 Lymphedema, not elsewhere classified; I50.20 Unspecified systolic (congestive) heart failure; N18.30 Chronic kidney disease, stage 3 unspecified; E11.622 Type 2 diabetes mellitus with other skin ulcer
CPT/HCPCS: 99214

== ENCOUNTER → 2020-07-07 | Outpatient (CLI) | payer MEDICARE | LOC: CARD 13:34 | PROVIDERS: ATTEND Physician Assistant | DX: I10 Essential (primary) hypertension (principal); I34.2 Nonrheumatic mitral (valve) stenosis | CPT/HCPCS: 93306 ==

== ENCOUNTER → 2020-07-12 | Outpatient (CLI) | payer MEDICARE | LOC: WOUNDCARE 14:54 | PROVIDERS: ATTEND Surgery | DX: L97.211 Non-pressure chronic ulcer of right calf limited to breakdown of skin (principal); I89.0 Lymphedema, not elsewhere classified; I50.20 Unspecified systolic (congestive) heart failure; E11.22 Type 2 diabetes mellitus with diabetic chronic kidney disease; N18.30 Chronic kidney disease, stage 3 unspecified; E11.622 Type 2 diabetes mellitus with other skin ulcer; E11.52 Type 2 diabetes mellitus with diabetic peripheral angiopathy with gangrene | CPT/HCPCS: 29580 ==

== ENCOUNTER → 2020-07-17 | Outpatient (CLI) | payer MEDICARE | LOC: WOUNDCARE 12:49 | PROVIDERS: ATTEND Surgery | DX: I89.0 Lymphedema, not elsewhere classified (principal) | CPT/HCPCS: 29580; A6253; A6454; A6456; G0463 ==

== ENCOUNTER → 2020-07-19 | Outpatient (CLI) | payer MEDICARE | LOC: WOUNDCARE 12:56 | PROVIDERS: ATTEND Surgery | DX: I89.0 Lymphedema, not elsewhere classified (principal) | CPT/HCPCS: 99212 ==

== ENCOUNTER → 2020-07-26 | Outpatient (CLI) | payer MEDICARE | LOC: WOUNDCARE 14:16 | PROVIDERS: ATTEND Surgery | DX: I96 Gangrene, not elsewhere classified (principal); L97.211 Non-pressure chronic ulcer of right calf limited to breakdown of skin; I89.0 Lymphedema, not elsewhere classified; I50.20 Unspecified systolic (congestive) heart failure; N18.30 Chronic kidney disease, stage 3 unspecified; E11.622 Type 2 diabetes mellitus with other skin ulcer | CPT/HCPCS: 29580; A6454; A6456; G0463 ==

== ENCOUNTER → 2020-08-02 | Outpatient (CLI) | payer MEDICARE | LOC: WOUNDCARE 13:27 | PROVIDERS: ATTEND Surgery | DX: I89.0 Lymphedema, not elsewhere classified (principal); I87.331 Chronic venous hypertension (idiopathic) with ulcer and inflammation of right lower extremity; L97.211 Non-pressure chronic ulcer of right calf limited to breakdown of skin; I50.20 Unspecified systolic (congestive) heart failure; E11.22 Type 2 diabetes mellitus with diabetic chronic kidney disease; N18.30 Chronic kidney disease, stage 3 unspecified; E11.622 Type 2 diabetes mellitus with other skin ulcer | CPT/HCPCS: 29580; A6454; A6456; G0463 ==

== ENCOUNTER → 2020-08-09 | Outpatient (CLI) | payer MEDICARE | LOC: WOUNDCARE 12:45 | PROVIDERS: ATTEND Surgery | DX: I89.0 Lymphedema, not elsewhere classified (principal); I87.331 Chronic venous hypertension (idiopathic) with ulcer and inflammation of right lower extremity; L97.212 Non-pressure chronic ulcer of right calf with fat layer exposed; I50.20 Unspecified systolic (congestive) heart failure; E11.22 Type 2 diabetes mellitus with diabetic chronic kidney disease; N18.30 Chronic kidney disease, stage 3 unspecified; E11.622 Type 2 diabetes mellitus with other skin ulcer | CPT/HCPCS: 99212 ==

== ENCOUNTER → 2020-10-04 | Outpatient (CLI) | payer MEDICARE ==
[2020-10-04 08:59] LABS: HEMATOCRIT 32 % (35-52); HEMOGLOBIN 10.3 g/dL (11.5-16.0); MEAN CORPUSCULAR HEMOGLOBIN 32 pg (25-34); MEAN CORPUSCULAR HGB CONC 32 g/dL (32-36); MEAN CORPUSCULAR VOLUME 100 fL (80-99); MEAN PLATELET VOLUME 10.7 fL (9.0-12.2); PLATELET COUNT 171 10^3/uL (130-400); WHITE BLOOD COUNT 6.8 10^3/uL (4.3-11.0)
[2020-10-04 09:12] LABS: BILIRUBIN,URINE NEGATIVE (NEGATIVE); CLARITY,URINE CLOUDY; COLOR,URINE YELLOW; GLUCOSE, URINE (UA) NEGATIVE (NEGATIVE); KETONES,URINE NEGATIVE (NEGATIVE); LEUKOCYTE ESTERASE ,URINE 2+ (NEGATIVE); NITRITE,URINE POSITIVE (NEGATIVE); PH,URINE 5.5 (5-9); PROTEIN,URINE NEGATIVE (NEGATIVE)
[2020-10-04 09:22] LABS: BACTERIA,URINE MODERATE /HPF; RBC,URINE RARE /HPF; WBC,URINE 25-50 /HPF
[2020-10-04 09:52] LABS: ALBUMIN 3.5 GM/DL (3.2-4.5); CALCIUM 9.2 MG/DL (8.5-10.1); CREATININE SERUM 2.3 MG/DL (0.60-1.30); PHOSPHORUS 3.7 MG/DL (2.3-4.7); POTASSIUM 4.7 MMOL/L (3.6-5.0); URIC ACID 5.7 MG/DL (2.6-7.2)
== END ==
LOC: LAB 08:03
PROVIDERS: ATTEND Nurse Practitioner
DX: N18.30 Chronic kidney disease, stage 3 unspecified (principal)
CPT/HCPCS: 36415; 80069; 81000; 82306; 82570; 83970; 84156; 84550; 85027; 87077; 87088; 87186

== ENCOUNTER → 2020-10-04 | Outpatient (CLI) | payer MEDICARE | LOC: CANPRECLI → LAB 08:04 | DX: Z53.9 Procedure and treatment not carried out, unspecified reason (principal) ==

== ENCOUNTER → 2020-10-09 | Outpatient (CLI) | payer MEDICARE ==
[2020-10-09 10:53] LABS: ALBUMIN 3.5 GM/DL (3.2-4.5); CALCIUM 9.1 MG/DL (8.5-10.1); CREATININE SERUM 2.18 MG/DL (0.60-1.30); PHOSPHORUS 3.8 MG/DL (2.3-4.7); POTASSIUM 5.1 MMOL/L (3.6-5.0)
== END ==
LOC: LAB 10:02
PROVIDERS: ATTEND Nurse Practitioner
DX: N17.9 Acute kidney failure, unspecified (principal)
CPT/HCPCS: 36415; 80069

== ENCOUNTER → 2020-10-26 | Outpatient (CLI) | payer MEDICARE ==
[2020-10-26 14:17] LABS: ALBUMIN 3.6 GM/DL (3.2-4.5); CALCIUM 9.3 MG/DL (8.5-10.1); CREATININE SERUM 1.41 MG/DL (0.60-1.30); PHOSPHORUS 3.5 MG/DL (2.3-4.7); POTASSIUM 4.3 MMOL/L (3.6-5.0)
== END ==
LOC: LAB 13:26
PROVIDERS: ATTEND Nurse Practitioner
DX: N17.9 Acute kidney failure, unspecified (principal)
CPT/HCPCS: 36415; 80069

== ENCOUNTER → 2020-11-10 | Outpatient (CLI) | payer MEDICARE ==
[2020-11-10 09:45] LABS: BASOPHILS # (AUTO) 0.1 10^3/uL (0.0-0.1); BASOPHILS % (AUTO) 1 % (0-10); EOSINOPHILS # (AUTO) 0.4 10^3/uL (0.0-0.3); EOSINOPHILS % (AUTO) 4 % (0-10); HEMATOCRIT 35 % (35-52); HEMOGLOBIN 11.2 g/dL (11.5-16.0); LYMPHOCYTES # (AUTO) 1.3 10^3/uL (1.0-4.0); LYMPHOCYTES % (AUTO) 14 % (12-44); MEAN CORPUSCULAR HEMOGLOBIN 33 pg (25-34); MEAN CORPUSCULAR HGB CONC 32 g/dL (32-36); MEAN CORPUSCULAR VOLUME 102 fL (80-99); MONOCYTES # (AUTO) 0.8 10^3/uL (0.0-1.0); MONOCYTES % (AUTO) 8 % (0-12); NEUTROPHILS # (AUTO) 7.3 10^3/uL (1.8-7.8); NEUTROPHILS % (AUTO) 74 % (42-75); PLATELET COUNT 195 10^3/uL (130-400); WHITE BLOOD COUNT 9.9 10^3/uL (4.3-11.0)
[2020-11-10 10:05] LABS: ALBUMIN 3.3 GM/DL (3.2-4.5); BILIRUBIN,TOTAL 0.4 MG/DL (0.1-1.0); CALCIUM 8.9 MG/DL (8.5-10.1); CREATININE SERUM 1.17 MG/DL (0.60-1.30); TOTAL PROTEIN 6.9 GM/DL (6.4-8.2)
[2020-11-10 10:26] LABS: FREE T4 (FREE THYROXINE) 1.29 NG/DL (0.70-1.48)
== END ==
LOC: LAB 09:21
PROVIDERS: ATTEND Nurse Practitioner Family
DX: E11.21 Type 2 diabetes mellitus with diabetic nephropathy (principal); E03.9 Hypothyroidism, unspecified; E78.2 Mixed hyperlipidemia
CPT/HCPCS: 36415; 80053; 80061; 84439; 84443; 84480; 85025

== ENCOUNTER → 2021-01-10 | Outpatient (CLI) | payer MEDICARE ==
[2021-01-10 08:46] LABS: BASOPHILS # (AUTO) 0.1 10^3/uL (0.0-0.1); BASOPHILS % (AUTO) 1 % (0-10); EOSINOPHILS # (AUTO) 0.4 10^3/uL (0.0-0.3); EOSINOPHILS % (AUTO) 5 % (0-10); HEMATOCRIT 36 % (35-52); HEMOGLOBIN 11.3 g/dL (11.5-16.0); LYMPHOCYTES # (AUTO) 1.3 10^3/uL (1.0-4.0); LYMPHOCYTES % (AUTO) 16 % (12-44); MEAN CORPUSCULAR HEMOGLOBIN 32 pg (25-34); MEAN CORPUSCULAR HGB CONC 31 g/dL (32-36); MEAN CORPUSCULAR VOLUME 101 fL (80-99); MEAN PLATELET VOLUME 9.9 fL (9.0-12.2); MONOCYTES # (AUTO) 0.8 10^3/uL (0.0-1.0); MONOCYTES % (AUTO) 10 % (0-12); NEUTROPHILS # (AUTO) 5.7 10^3/uL (1.8-7.8); NEUTROPHILS % (AUTO) 69 % (42-75); PLATELET COUNT 209 10^3/uL (130-400); WHITE BLOOD COUNT 8.2 10^3/uL (4.3-11.0)
[2021-01-10 08:59] LABS: BILIRUBIN,URINE NEGATIVE (NEGATIVE); CLARITY,URINE CLEAR; COLOR,URINE YELLOW; GLUCOSE, URINE (UA) NEGATIVE (NEGATIVE); KETONES,URINE NEGATIVE (NEGATIVE); LEUKOCYTE ESTERASE ,URINE 1+ (NEGATIVE); NITRITE,URINE NEGATIVE (NEGATIVE); PROTEIN,URINE NEGATIVE (NEGATIVE)
[2021-01-10 09:04] LABS: ALBUMIN 3.5 GM/DL (3.2-4.5)
[2021-01-10 09:05] LABS: POTASSIUM 3.9 MMOL/L (3.6-5.0)
[2021-01-10 09:06] LABS: CALCIUM 9.5 MG/DL (8.5-10.1)
[2021-01-10 09:10] LABS: CREATININE SERUM 1.15 MG/DL (0.60-1.30); PHOSPHORUS 3.6 MG/DL (2.3-4.7)
[2021-01-10 09:19] LABS: AMORPHOUS SEDIMENT,UR FEW AMOR URATES /LPF; BACTERIA,URINE MODERATE /HPF
== END ==
LOC: LAB 08:11
PROVIDERS: ATTEND Nurse Practitioner
DX: N17.9 Acute kidney failure, unspecified (principal)
CPT/HCPCS: 36415; 80069; 81000; 82043; 82306; 83970; 84550; 85025; 87088

== ENCOUNTER → 2021-07-10 | Outpatient (CLI) | payer MEDICARE ==
[~2021-07-10] MED LIST changes: -CITA40TA11 PO; +CITA40TA13 PO
[2021-07-10 11:01] LABS: ALANINE AMINOTRANSFERASE < 6 U/L (0-55); ALBUMIN 3.4 GM/DL (3.2-4.5); ALKALINE PHOSPHATASE 109 U/L (40-136); BILIRUBIN,TOTAL 0.8 MG/DL (0.1-1.0); BUN/CREATININE RATIO 11; CALCIUM 9.2 MG/DL (8.5-10.1); CARBON DIOXIDE 25 MMOL/L (21-32); CHLORIDE 103 MMOL/L (98-107); CHOLESTEROL 116 MG/DL (< 200); CREATININE SERUM 1.31 MG/DL (0.60-1.30); GFR ESTIMATED 44; GLUCOSE 65 MG/DL (70-105); HDL CHOLESTEROL 26 MG/DL (40-60); POTASSIUM 3.9 MMOL/L (3.6-5.0); SODIUM 140 MMOL/L (135-145); TOTAL PROTEIN 7.3 GM/DL (6.4-8.2); TRIGLYCERIDES 178 MG/DL (<150); VLDL CHOLESTEROL 36 MG/DL (5-40)
== END ==
LOC: LAB 10:16
PROVIDERS: ATTEND Internal Medicine Cardiovascular Disease
DX: E78.2 Mixed hyperlipidemia (principal); I11.9 Hypertensive heart disease without heart failure; I34.0 Nonrheumatic mitral (valve) insufficiency; I65.23 Occlusion and stenosis of bilateral carotid arteries
CPT/HCPCS: 36415; 80053; 80061

== ENCOUNTER 2021-08-03 12:12 | Observation (INO) | payer MEDICARE ==
[2021-08-03] VITALS (10 sets, daily range): BP systolic 115–166; BP diastolic 49–108
[~2021-08-03] VITALS: Ht 154 cm; Wt 118.0 kg
[2021-08-03] MEDS ORDERED: diphenhydrAMINE 50 MG/ML INJ (BENADRYL) IVP PRN (13:45)
[2021-08-03] MEDS ORDERED: ONDANSETRON 4 MG/2 ML (SDV) Z0FRAN IV PRN (13:45)
[2021-08-03] MEDS ORDERED: LACTULOSE SYRUP 10GM/15ML (ENULOSE) 30ML UDC PO PRN (13:45)
[2021-08-03] MEDS ORDERED: MILK OF MAGNESIA 400 MG/5 ML 30 ML UDC PO PRN (13:45)
[2021-08-03] MEDS ORDERED: ACETAMINOPHEN 325 MG TABLET PO PRN (13:45)
[2021-08-03] MEDS ORDERED: BISACODYL 10 MG SUPP (DULCOLAX) PR PRN (13:45)
[2021-08-03] MEDS ORDERED: CALCIUM CARBONATE 500 MG (TUMS) TAB.CHEW PO PRN (13:45)
[2021-08-03] MEDS ORDERED: ONDANSETRON 4 MG (ZOFRAN) ORAL DISSOLVE TAB PO PRN (13:45)
[2021-08-03] MEDS ORDERED: ANTACID SUSP 30 ML UDC (MYLANTA) PO PRN (13:45)
[2021-08-03] MEDS ORDERED: diphenhydrAMINE 25 MG TAB (BENADRYL) PO PRN (13:45)
[2021-08-03] MEDS ORDERED: morphine INJ 4 MG/ML 1 ML (VIAL/SYRINGE) IV PRN (13:45)
[2021-08-03] MEDS ORDERED: MELATONIN 3 MG TABLET PO PRN (13:45)
[2021-08-03] MEDS ORDERED: polyethylene glycoL POWDER 17 GM (MIRALAX) PACK PO PRN (13:45)
[2021-08-03] MEDS ORDERED: NALOXONE 0.4 MG/ML 1 ML (NARCAN) VIAL IV PRN (13:45)
[2021-08-03 14:17] LABS: ABG OXYGEN SATURATION 98 % (94-100); ABG PCO2 53 MMHG (35-45); ABG PH 7.36 (7.37-7.43); ABG PO2 93 MMHG (79-93)
[2021-08-03 14:18] LABS: ALLENS TEST YES-POS; INSPIRED O2 4 L; VENTILATOR NO
--- NOTE | 2021-08-03 14:40 | Tele-ICU Consult ---
History of Present Illness History of Present Illness Date Seen by Provider: Aug 03, 2021 Time Seen by Provider: 14:40 Date of Admission (Tele-ICU Physician Available chart/ vitals / labs / Images reviewed H&P is from ER notes Patient's information available about PMH, Shx, Fhx allergy reviewed in EMR. ROS as per chart and RN report Now in ICU, hemodynamically stable Video assessment done using teleICU camera, rest of exam as per RN Discussed with RN. Consultants: cardio Hospital course: 08/03- transfer to ICU from outpatient Sx center - bradycardia and hypoxix post anaestesia A/P Bradycardia - w/up as per cardiology -BP stable , no signs of end-organ hypoperfusion now Acute resp hypoxix failure - post op - most likley due to post obstructiove edema and muscle weaknes post anaest medication - monitor on O2 , expet impeovement - might need diuretics , but will await cards assessment and labs h/o DAVID - cont CPAP at night s/p wrist sx today - pain control - other recom as per sx DM - ISS Lines : (Central Line Necessity Reviewed) Brown: OG: Nutrition: Analgesia: Anxiety/ delirium VTE Prophylaxis: await labs Stress Ulcer Prophylaxis: po Plans in collaboration with bedside consultants and IM MDs. Discussed with RN to reach out if any questions or concerns A total of 25 minutes of critical care time was devoted to this patient today, required to treat and/or prevent further deterioration of critical care condition ( as above ) . Allergies and Home Medications Allergies Coded Allergies: codeine (Verified Allergy, Severe, ITCHING, 03/09/17) Home Medications Acetaminophen 500 Mg Tablet, 1,000 MG PO Q6H PRN for PAIN-MILD, (Reported) Aspirin 81 Mg Tablet.dr, 81 MG PO DAILY, (Reported) Atorvastatin Calcium 40 Mg Tablet, 40 MG PO HS, (Reported) Cinnamon Bark 500 Mg Capsule, 500 MG PO BID, (Reported) Citalopram Hydrobromide 40 Mg Tablet, 40 MG PO DAILY, (Reported) Gabapentin 300 Mg Capsule, 600 MG PO BID, (Reported) TAKES 2 (300 MG) CAPSULES Hydrochlorothiazide 25 Mg Tablet, 25 MG PO DAILY, (Reported) Hydrocodone/Acetaminophen 1 Each Tablet, 1-2 EACH PO Q6H PRN for PAIN-MODERATE Prescribed by: ZAINAB CAGLE MD on 02/22/19 1447 Insulin Aspart 300 Units/3 Ml Solution, 15 UNITS SQ AC, (Reported) Insulin Degludec 200 Unit/1 Ml Insuln.pen, 40 UNIT SQ HS, (Reported) Levothyroxine Sodium 100 Mcg Tablet, 100 MCG PO DAILY, (Reported) Lisinopril 20 Mg Tablet, 20 MG PO DAILY, (Reported) LAST FILLED #30 2-27-18 Magnesium Oxide 500 Mg Capsule, 500 MG PO BID, (Reported) [place]-3 Fatty Acids/Fish Oil 1 Each Capsule, 2,400 MG PO BID, (Reported) TAKES 2 (1,200 MG) CAPSULES Oxycodone HCl/Acetaminophen 1 Each Tablet, 1 TAB PO Q6H PRN for PAIN-MODERATE, (Reported) Pioglitazone HCl 45 Mg Tablet, 45 MG PO DAILY, (Reported) Past Medical/Social/Family Hx Immunizations Up To Date Tetanus Booster (TDap): Unknown Date of Pneumonia Vaccine: Feb 02, 2017 Current Status Primary Language: Faroese Past Medical History Type II Diabetes Mellitus, Insulin Dependent Recent Right wrist fracture s/p ORIF Hypothyroidism Hypertention Hyperlipidemia Neuropathy Restless Leg Syndrome Severe Obstructive Sleep Apnea - CPAP at Night Depression Morbid Obesity, BMI 51 Hx of Tobacco Abuse Dependence on Supplemental Oxygen Surgical Hx: Right Wrist - 02/2017, 08/2017 Bilateral Carpal Tunnel Release Bilateral Cataracts Hysterectomy Ganglion Cyst Removed Tonsillectomy Review of Systems Constitutional: see HPI Focused Exam Height, Weight, BMI Height: 5'1.00" Weight: 271lbs. 7.6oz. 123.074001pg; 46.00 BMI Method:Stated Exam Exam Patient acknowledged, consented, and participated in this virtual visit which was conducted using real time audio/video Vital Signs Date Time Temp Pulse Resp B/P (MAP) Pulse Ox O2 Delivery O2 Flow Rate FiO2 08/03/21 13:49 57 08/03/21 13:30 53 10 129/107 (114) 99 Height & Weight Height: 5'1.00" Weight: 271lbs. 7.6oz. 123.867258uy; 46.00 BMI Method:Stated General Appearance: No Apparent Distress Assessment/Plan Assessment/Plan DIONI MCMAHON MD Aug 03, 2021 14:40
--- NOTE | 2021-08-03 14:40 | Diagnostic Imaging Report ---
INDICATION: Bradycardia. Hypoxia. COMPARISON: 06/30/2017 FINDINGS: Single frontal radiographic view of the chest was obtained and demonstrates interval development of diffuse coarse interstitial prominence. There is no large effusion or pneumothorax. Cardiac silhouette and pulmonary vasculature are within normal limits. Osseous structures show no gross acute abnormalities. IMPRESSION: 1. Interval development of mild diffuse prominence of the interstitium suspicious for acute interstitial pneumonia. Interstitial edema is also consideration. Clinical correlation is advised. Dictated by: Dictated on workstation # [id number]
[2021-08-03] MEDS ORDERED: RT-ALBUTEROL/IPRATROPIUM 3 ML (DUONEB) VIAL INH PRN (15:45)
[2021-08-03] MEDS ORDERED: GBPN600T PO (16:04)
[2021-08-03] MEDS ORDERED: ZINC50TA58 PO (16:04)
[2021-08-03] MEDS ORDERED: ESCI20TA39 PO (16:04)
[2021-08-03] MEDS ORDERED: AMOX1TAB12 PO (16:04)
[2021-08-03] MEDS ORDERED: MUPI22OI2 TOP (16:04)
[2021-08-03] MEDS ORDERED: MAGN400T7 PO (16:04)
[2021-08-03] MEDS ORDERED: LEVO137T2 PO (16:04)
[2021-08-03] MEDS ORDERED: ALLO100T PO (16:04)
[2021-08-03] MEDS ORDERED: FURO20TA4 PO (16:04)
[2021-08-03] MEDS ORDERED: SEMA1PEN3 IJ (16:04)
[2021-08-03 16:32] LABS: ALBUMIN 3.2 GM/DL (3.2-4.5)
[2021-08-03 16:33] LABS: CHLORIDE 105 MMOL/L (98-107); POTASSIUM 4.5 MMOL/L (3.6-5.0); SODIUM 141 MMOL/L (135-145)
--- NOTE | 2021-08-03 16:33 | Consultation-Cardiology ---
HPI-Cardiology Cardiology Consultation: Date of Consultation 08/03/21 Date of Admission 08/03/21 Attending Physician Chio Banuelos DO Admitting Physician [facility] Consulting Physician CLAUDIA ALARCON JR, MD HPI: Time Seen by a Provider: 17:04 Chief Complaint: Reason for consultation: Bradycardia. I had the pleasure of seeing Alix in the intensive care unit at [facility] in [place], [place] this afternoon. She normally follows with one of my partners. She has a known history of bradycardia. Today she was at an outside surgical center having carpal tunnel surgery and following the surgery, had bradycardia followed by some shortness of breath and dropping her oxygen saturations. Because of this, she was transferred to our hospital for further treatment and evaluation. When I saw the patient in the intensive care unit, she denied any significant dyspnea. She denied chest discomfort, paroxysmal nocturnal dyspnea, orthopnea, palpitations, lightheadedness, or syncope. She does have chronic, intermittent ankle edema which has been slightly worse over the past couple of weeks. She also reports a significant weight gain over the past few years. Certain portions of this document may have been dictated utilizing voice recognition technology. Inherent to this technology, typographical and grammatical errors may exist. As much as I am diligent to identify and correct these mistakes, some errors may remain in the document. Review of Systems-Cardiology Review of Systems Other comments Review of 10 organ systems is as per the history of present illness, otherwise negative. KYA-[id number]-Dmmbzg Hx Patient Social History 2nd Hand Smoke Exposure: No Immunizations Up To Date Tetanus Booster (TDap): More than 5yrs Date of Pneumonia Vaccine: Feb 02, 2017 Date of Influenza Vaccine: Jan 03, 2019 Past Medical History PMH As described under Assessment. Family Medical History Family History: Alzheimer's disease 19 MOTHER Diabetes mellitus G8 BROTHER FH: anemia G8 SISTER FH: congestive heart failure 19 FATHER FH: emphysema 19 FATHER 19 MOTHER G8 SISTER FH: lung cancer G8 SISTER FH: sleep apnea G8 SISTER Heart murmur 19 FATHER Hypertension G8 BROTHER Psychosocial problem G8 SISTER Allergies and Home Medications Allergies Coded Allergies: codeine (Verified Allergy, Severe, ITCHING, 03/09/17) Patient Home Medication List Home Medication List Reviewed: Yes Acetaminophen (Tylenol Extra Strength) 500 Mg Tablet, 1,000 MG PO Q6H PRN for PAIN-MILD, (Reported) Entered as Reported by: DEON WAGNER on 08/26/17910 Last Action: Reviewed Allopurinol (Allopurinol) 100 Mg Tablet, 100 MG PO DAILY, (Reported) Entered as Reported by: DA JOHNSON on 08/03/211603 Last Action: Reviewed Amoxicillin/Potassium Clav (Amox Tr-K Clv 875-125 mg Tab) 1 Each Tablet, 1 EA PO BID, (Reported) Entered as Reported by: AD JOHNSON on 08/03/211603 Last Action: Reviewed Aspirin (Adult Low Dose Aspirin EC) 81 Mg Tablet.dr, 81 MG PO DAILY, (Reported) Entered as Reported by: EDSON BARTON on 09/17/16 0744 Last Action: Reviewed Atorvastatin Calcium (Atorvastatin Calcium) 40 Mg Tablet, 40 MG PO DAILY, (Reported) Entered as Reported by: CARLOS CANTRELL on 09/17/16 1105 Last Action: Reviewed Escitalopram Oxalate (Escitalopram Oxalate) 20 Mg Tablet, 20 MG PO DAILY, (Reported) Entered as Reported by: AD JOHNSON on 08/03/211603 Last Action: Reviewed Furosemide (Furosemide) 20 Mg Tablet, 20 MG PO DAILY, (Reported) Entered as Reported by: AD JOHNSON on 08/03/211603 Last Action: Reviewed Gabapentin (Gabapentin) 600 Mg Tablet, 600 MG PO BID, (Reported) Entered as Reported by: AD JOHNSON on 08/03/211603 Last Action: Reviewed Insulin Degludec (Tresiba Flextouch U-200) 200 Unit/1 Ml Insuln.pen, 30 UNIT SQ HS, (Reported) Entered as Reported by: DEON WAGNER on 08/26/17910 Last Action: Reviewed Levothyroxine Sodium (Levothyroxine Sodium) 137 Mcg Tablet, 137 MCG PO DAILY, (Reported) Entered as Reported by: AD JOHNSON on 08/03/211603 Last Action: Reviewed Magnesium Oxide (Magnesium Oxide) 400 Mg Tablet, 400 MG PO DAILY, (Reported) Entered as Reported by: AD JOHNSON on 08/03/211603 Last Action: Reviewed Mupirocin (Mupirocin) 22 Gm Oint...g., 1 APPLIC TOP TID PRN for RASH/INFECTION, (Reported) Entered as Reported by: AD JOHNSON on 08/03/21 160 Last Action: Reviewed [place]-3 Fatty Acids/Fish Oil (Fish Oil 1,200 mg Softgel) 1 Each Capsule, 2,400 MG PO BID, (Reported) Entered as Reported by: CARLOS CANTRELL on 09/17/16 110 Last Action: Reviewed Pioglitazone HCl (Pioglitazone HCl) 45 Mg Tablet, 45 MG PO DAILY, (Reported) Entered as Reported by: DEON WAGNER on 08/26/17 09 Last Action: Reviewed Semaglutide (Ozempic) 1 Mg/0.75 Ml Pen.injctr, 1 MG IJ MON, (Reported) Entered as Reported by: AD JOHNSON on 08/03/211603 Last Action: Reviewed Zinc (Zinc) 50 Mg Tablet, 50 MG PO DAILY, (Reported) Entered as Reported by: AD JOHNSON on 08/03/211603 Last Action: Reviewed Discontinued Medications Cinnamon Bark (Cinnamon) 500 Mg Capsule, 500 MG PO BID, (Reported) Discontinued Reason: No Longer Taking Entered as Reported by: DEON WAGNER on 06/25/17928 Last Action: Discontinued Citalopram Hydrobromide (Citalopram HBr) 40 Mg Tablet, 40 MG PO DAILY, (Reported) Discontinued Reason: No Longer Taking Entered as Reported by: DEON WAGNER on 06/25/17926 Last Action: Discontinued Gabapentin (Gabapentin) 300 Mg Capsule, 600 MG PO BID, (Reported) Discontinued Reason: No Longer Taking Entered as Reported by: CARLOS CANTRELL on 09/17/161104 Last Action: Discontinued Hydrochlorothiazide (Hydrochlorothiazide) 25 Mg Tablet, 25 MG PO DAILY, (Reported) Discontinued Reason: No Longer Taking Entered as Reported by: DEON WAGNER on 08/26/17 09 Last Action: Discontinued Hydrocodone/Acetaminophen (Vicodin 5-300 mg Tablet) 1 Each Tablet, 1-2 EACH PO Q6H PRN for PAIN-MODERATE Discontinued Reason: No Longer Taking Prescribed by: ZAINAB CAGLE MD on 02/22/19 1447 Last Action: Discontinued Insulin Aspart (Novolog Flexpen) 300 Units/3 Ml Solution, 15 UNITS SQ AC, (Reported) Discontinued Reason: No Longer Taking Entered as Reported by: DEON WAGNER on 08/26/17910 Last Action: Discontinued Levothyroxine Sodium (Levothyroxine Sodium) 100 Mcg Tablet, 100 MCG PO DAILY, (Reported) Discontinued Reason: No Longer Taking Entered as Reported by: CARLOS CANTRELL on 09/17/16 1105 Last Action: Discontinued Lisinopril (Lisinopril) 20 Mg Tablet, 20 MG PO DAILY, (Reported) Discontinued Reason: No Longer Taking Entered as Reported by: DEON WAGNER on 08/26/17913 Last Action: Discontinued Magnesium Oxide (Magnesium) 500 Mg Capsule, 500 MG PO BID, (Reported) Discontinued Reason: Prescription changed Entered as Reported by: CARLOS CANTRELL on 09/17/161104 Oxycodone HCl/Acetaminophen (Oxycodone-Acetaminophen 5-325) 1 Each Tablet, 1 TAB PO Q6H PRN for PAIN-MODERATE, (Reported) Discontinued Reason: No Longer Taking Entered as Reported by: DEON WAGNER on 08/26/17910 Last Action: Discontinued Exam Vital Signs Vital Signs Date Time Temp Pulse Resp B/P (MAP) Pulse Ox O2 Delivery O2 Flow Rate FiO2 08/03/21 16:00 57 8 158/49 (85) 100 Nasal Cannula 3.00 Physical Exam General: Alert. No acute distress. Well nourished and appears stated age. She is morbidly obese. Eye: Extraocular movements are intact. Conjunctivae are clear. There are no xanthelasma. HENT: Normocephalic. Atraumatic. Carotid pulsations 2/2 without bruits. Neck: Jugular venous pressure does not appear elevated. No thyromegaly appreciated. Respiratory: Lungs are clear to auscultation. Respirations are non-labored. Breath sounds are equal. Symmetrical chest wall expansion. Cardiovascular: Normal rate. Regular rhythm. Distant S1/S2. No murmur. No gallop. Point of maximal impulse is not appear displaced. Good pulses equal in all extremities. 1+ bilateral pretibial edema. Gastrointestinal: Soft. Normal bowel sounds. Skin: Skin turgor is normal. There is no pallor. Musculoskeletal: No kyphosis or scoliosis appreciated. Neurologic: Alert and oriented to person, place, time. Cranial nerves 3-12 appear grossly intact. The patient has good motor tone strength in the upper and lower extremities bilaterally. Psychiatric: Cooperative. Appropriate mood & affect. Labs Laboratory Tests Test 08/03/21 14:10 08/03/21 15:05 08/03/21 15:55 08/03/21 16:50 Range/Units Blood Gas Puncture Site RT BRACH Blood Gas Patient Temperature 36.0 Arterial Blood pH 7.36 L 7.37-7.43 Arterial Blood Partial Pressure CO2 53 H 35-45 MMHG Arterial Blood Partial Pressure O2 93 79-93 MMHG Arterial Blood HCO3 29 H 23-27 MMOL/L Arterial Blood Total CO2 31.0 21.0-31.0 MMOL/L Arterial Blood Oxygen Saturation 98 94-100 % Arterial Blood Base Excess 4.0 H -2.5-2.5 MMOL/L Yannick Test YES-POS Blood Gas Ventilator Setting NO Blood Gas Inspired Oxygen 4 L Troponin I < 0.028 <0.028 NG/ML Procalcitonin 0.02 <0.10 NG/ML D-Dimer 1.52 H 0.00-0.49 UG/ML Sodium Level 141 135-145 MMOL/L Potassium Level 4.5 3.6-5.0 MMOL/L Chloride Level 105 98-107 MMOL/L Carbon Dioxide Level 20 L 21-32 MMOL/L Anion Gap 16 H 5-14 MMOL/L Blood Urea Nitrogen 13 7-18 MG/DL Creatinine 0.98 0.60-1.30 MG/DL Estimat Glomerular Filtration Rate 62 BUN/Creatinine Ratio 13 Lactic Acid Level 0.56 0.50-2.00 MMOL/L Calcium Level 8.9 8.5-10.1 MG/DL Corrected Calcium 9.5 8.5-10.1 MG/DL Total Bilirubin 0.6 0.1-1.0 MG/DL Aspartate Amino Transf (AST/SGOT) 25 5-34 U/L Alanine Aminotransferase (ALT/SGPT) < 6 0-55 U/L Alkaline Phosphatase 108 40-136 U/L B-Type Natriuretic Peptide 355.7 H <100.0 PG/ML Total Protein 7.4 6.4-8.2 GM/DL Albumin 3.2 3.2-4.5 GM/DL Glucometer 73 70-110 MG/DL Radiology ECHOCARDIOGRAM (08/03/2021): 1. This is a technically difficult study due to poor image quality secondary to body habitus. 2. Left ventricle: The cavity size is normal. There is moderate concentric hypertrophy. Systolic function is normal. The estimated ejection fraction is 55- 60%. Regional wall motion abnormalities cannot be excluded due to poor endocardial definition. The left ventricular diastolic function is indeterminate. 3. Mitral valve: The leaflets are moderately thickened and moderately calcified. The findings are consistent with mild mitral stenosis with a mean gradient of 3 mmHg, a pressure half-time of 103 ms and a calculated mitral valve area of 2.1 cm. 4. Pulmonary arteries: The pulmonary artery pressure cannot be estimated on this study due to inadequate tricuspid regurgitant envelope. ECG Impression ECG Comment She had 2 electrocardiograms both of which were with poor data quality but 1 showed sinus bradycardia with first-degree AV block, left anterior hemiblock and poor R wave progression. No ischemic ST changes. Diagnosis/Problems Diagnosis/Problems (1) Bradycardia Assessment & Plan: She has a known history of bradycardia that has been asymptomatic in the past. I have ordered a TSH level. Her echocardiogram shows a normal ejection fraction. I would just recommend avoiding any AV lico blocking agents such as beta-mera or diltiazem. There is no indication for temporary or permanent pacemaker at this time. (2) Pulmonary infiltrate Assessment & Plan: Her chest x-ray from admission showed scattered pulmonary infiltrates and her BNP is elevated. This could be a sign of acute heart failure versus some other etiology. I will give her 1 dose of intravenous Lasix and obtain a follow-up chest x-ray in the morning. (3) Mitral stenosis Assessment & Plan: Her echocardiogram showed mild mitral stenosis. 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 (4) Morbid obesity Assessment & Plan: She needs to work on weight loss. This is probably contributing to some of her symptoms such as dyspnea and peripheral edema. (5) Obstructive sleep apnea of adult Assessment & Plan: She may need to use a CPAP while she is here in the hospital overnight. She did not bring her hours with her. (6) Type 2 diabetes mellitus without complication Assessment & Plan: This is being managed by the hospitalist. CLAUDIA ALARCON JR, MD Aug 03, 2021 16:33
[2021-08-03 16:34] LABS: CALCIUM 8.9 MG/DL (8.5-10.1)
[2021-08-03 16:35] LABS: TOTAL PROTEIN 7.4 GM/DL (6.4-8.2)
[2021-08-03 16:36] LABS: CARBON DIOXIDE 20 MMOL/L (21-32)
[2021-08-03 16:37] LABS: BILIRUBIN,TOTAL 0.6 MG/DL (0.1-1.0)
[2021-08-03 16:38] LABS: ALKALINE PHOSPHATASE 108 U/L (40-136)
[2021-08-03 16:39] LABS: CREATININE SERUM 0.98 MG/DL (0.60-1.30); GFR ESTIMATED 62
[2021-08-03 16:40] LABS: BUN/CREATININE RATIO 13
[2021-08-03 16:41] LABS: ALANINE AMINOTRANSFERASE < 6 U/L (0-55)
[2021-08-03 16:58] LABS: GLUCOSE 53 MG/DL (70-105)
[2021-08-03] MEDS ORDERED: FUROSEMIDE 40 MG/4 ML INJ (LASIX) IVP ONE (17:00)
[2021-08-03] MEDS: inSUlin ASPART (NovoLOG) 1 UNIT/0.01 ML (CHARGE PER UNIT) SC SCH ×2 (17:03→20:29)
[2021-08-03] MEDS ORDERED: BUMETANIDE 1 MG (BUMEX) TAB PO ONE (17:30)
--- NOTE | 2021-08-03 18:21 | Anesthesia-Procedure Note ---
Procedures/Interventions Procedure Start/Stop/Diagnosis Date of Procedure: Aug 03, 2021 Start Time: 17:56 Referring Physician: Lakisha Preprocedural Diagnosis: NO IV access, bradycardia Brief History Called to ICU 9 for IV start. Patient had carpal tunnel surgery this am in [place] and was found to be bradycardic postop. She was transferred to our facility. The patient had an IV in her left wrist on arrival; however, it infiltrated, and further attempts at restarting an IV were unsuccessful. 22 g IV started in patient's left foot x 1 attempt after looking at both arms extensively. The patient states she is always a difficult IV start. Opsite placed over the HL and it was secured well. Reported off to RN. Stop Time: 18:12 WANDER SU CRNA Aug 03, 2021 18:21
[2021-08-03 20:15] LABS: BASOPHILS # (AUTO) 0.1 10^3/uL (0.0-0.1); BASOPHILS % (AUTO) 1 % (0-10); EOSINOPHILS # (AUTO) 0.3 10^3/uL (0.0-0.3); EOSINOPHILS % (AUTO) 4 % (0-10); HEMATOCRIT 33 % (35-52); HEMOGLOBIN 10.6 g/dL (11.5-16.0); LYMPHOCYTES % (AUTO) 12 % (12-44); MEAN CORPUSCULAR HEMOGLOBIN 31 pg (25-34); MEAN CORPUSCULAR HGB CONC 32 g/dL (32-36); MEAN CORPUSCULAR VOLUME 99 fL (80-99); MEAN PLATELET VOLUME 9.7 fL (9.0-12.2); MONOCYTES # (AUTO) 0.5 X 10^3 (0.0-1.0); MONOCYTES % (AUTO) 6 % (0-12); NEUTROPHILS # (AUTO) 6.8 X 10^3 (1.8-7.8); NEUTROPHILS % (AUTO) 78 % (42-75); PLATELET COUNT 193 10^3/uL (130-400); WHITE BLOOD COUNT 8.7 10^3/uL (4.3-11.0)
[2021-08-03] MEDS: SENNOSIDES 8.6 MG (SENOKOT) TAB PO SCH (20:25)
[2021-08-03] MEDS: DOCUSATE SODIUM 100 MG (COLACE) CAP PO SCH (20:25)
--- NOTE | 2021-08-03 21:10 | History & Physical-Hospitalist ---
History of Present Illness HPI/Chief Complaint CC: Post op CTS right at [facility] with bradycardia of 30 and hypoxia of 84% HPI: This is a 71yoWF [facility] patient who I received in transfer from [facility] s/p uncomplicated right CTS per Dr Ochoa who post operatively have bradycardia sustained at 31 with hypoxia of 84% promoting transfer to ICU w ith Cardiology consultation. Patient does have a h/o DAVID on CPAP and nocturnal hypoxia with 2L/min bleeding into the CPAP. She also has a h/o DM insulin dependence. Currently patient is feeling well and has her right wrist in mu wrap. Dr Rothman consulted. Labs reviewed and appears to have no evidence of sepsis or PNA or CHF. Source: patient, RN/MD, old records Exam Limitations: no limitations Date Seen 08/03/21 Time Seen by a Provider: 18:15 Attending Physician Chio Banuelos DO [facility] Referring Physician Date of Admission Aug 03, 2021 at 13:24 Home Medications & Allergies Home Medications Reviewed patient Home Medication Reconciliation performed by pharmacy medication reconciliations structural engineering technician and/or nursing. Patients Allergies have been reviewed. Allergies Allergies Coded Allergies codeine (Verified Allergy, Severe, ITCHING, 03/09/17) Past Rvdhryi-Abdvfz-Xompsv Hx Patient Social History Marrital Status: single Employed/Student: retired Smoking Status: Former Smoker Immunizations Up To Date Date of Influenza Vaccine: Jan 03, 2019 Tetanus Booster (TDap): Unknown Date of Pneumonia Vaccine: Feb 02, 2017 Seasonal Allergies Seasonal Allergies: No Current Status Primary Language: Lao Past Medical History Surgeries: Adenoidectomy, Hysterectomy, Oophorectomy, Orthopedic, Tonsillectomy Sleep Apnea Currently Using CPAP: Yes High Cholesterol, Hypertension Neuropathy 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, 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 Sexually Transmitted Disease: No Gastroesophageal Reflux Diabetes, Insulin dep, Hypothyroidsim Cataract Depression Blood Disorders: No Adverse Reaction/Blood Tranf: No Type II Diabetes Mellitus, Insulin Dependent Recent Right wrist fracture s/p ORIF Hypothyroidism Hypertention Hyperlipidemia Neuropathy Restless Leg Syndrome Severe Obstructive Sleep Apnea - CPAP at Night Depression Morbid Obesity, BMI 51 Hx of Tobacco Abuse Dependence on Supplemental Oxygen Surgical Hx: Right Wrist - 02/2017, 08/2017 Bilateral Carpal Tunnel Release Bilateral Cataracts Hysterectomy Ganglion Cyst Removed Tonsillectomy Family Medical History Alzheimer's disease 19 MOTHER Diabetes mellitus G8 BROTHER FH: anemia G8 SISTER FH: congestive heart failure 19 FATHER FH: emphysema 19 FATHER 19 MOTHER G8 SISTER FH: lung cancer G8 SISTER FH: sleep apnea G8 SISTER Heart murmur 19 FATHER Hypertension G8 BROTHER Psychosocial problem G8 SISTER Review of Systems Constitutional: see HPI, malaise, weakness EENTM: no symptoms reported Respiratory: dyspnea on exertion Cardiovascular: no symptoms reported Gastrointestinal: no symptoms reported Musculoskeletal: no symptoms reported Skin: no symptoms reported Psychiatric/Neurological: No Symptoms Reported All Other Systems Reviewed Negative Unless Noted: Yes Physical Exam Physical Exam Vital Signs Vital Signs - First Documented 08/03/21 08/04/21 13:30 07:42 Temp 36.1 Pulse 53 Resp 10 B/P (MAP) 129/107 (114) Pulse Ox 99 O2 Delivery Nasal Cannula O2 Flow Rate 3.00 Capillary Refill : Height, Weight, BMI Height: 5'1.00" Weight: 271lbs. 7.6oz. 123.337584yv; 49.75 BMI Method:Stated General Appearance: No Apparent Distress, WD/WN, Chronically ill, Obese Eyes: Right Eye Normal Inspection, Right Eye PERRL HEENT: PERRL/EOMI, Normal ENT Inspection, Pharynx Normal, Moist Mucous Membranes Neck: Full Range of Motion, Normal Inspection, Non Tender Respiratory: Chest Non Tender, Lungs Clear, Normal Breath Sounds, No Accessory Muscle Use, No Respiratory Distress, Decreased Breath Sounds Cardiovascular: No Edema, No Gallop, No JVD, No Murmur, Normal Peripheral Pulses, Bradycardia Gastrointestinal: Normal Bowel Sounds, No Organomegaly, No Pulsatile Mass, Non Tender, Soft Back: Normal Inspection, No CVA Tenderness, No Vertebral Tenderness Extremity: Normal Capillary Refill, Normal Inspection, Normal Range of Motion, Non Tender, No Calf Tenderness, No Pedal Edema Neurologic/Psychiatric: Alert, Oriented x3, No Motor/Sensory Deficits, Normal Mood/Affect Skin: Normal Color, Warm/Dry Lymphatic: No Adenopathy Results Results/Procedures Labs Laboratory Tests 08/03/21 15:55 08/03/21 19:55 08/04/21 04:56 Patient resulted labs reviewed. Assessment/Plan Admission Diagnosis Assessment: Post op bradycardia of 31 at [facility] s/p right CTS uncomplicated Hypoxia acute on chronic post op prompting transfer to ICU full service hos[ital Obesity DM DAVID on CPAP with 2L/min O2 HTN HLP Plan: CPAP with O2 Insulin Home meds Cardiology Admission Status: Observation Diagnosis/Problems Diagnosis/Problems (1) Bradycardia (2) CTS (carpal tunnel syndrome) (3) Obstructive sleep apnea of adult (4) Type 2 diabetes mellitus without complication CHIO BANUELOS DO Aug 03, 2021 21:10
[2021-08-03] MEDS: RT-ALBUTEROL/IPRATROPIUM 3 ML (DUONEB) VIAL INH SCH (21:41)
[2021-08-04] VITALS (12 sets, daily range): BP systolic 109–146; BP diastolic 34–54
[2021-08-04] MEDS: RT-ALBUTEROL/IPRATROPIUM 3 ML (DUONEB) VIAL INH SCH ×2 (02:12→10:20)
[2021-08-04 05:22] LABS: BASOPHILS # (AUTO) 0.1 10^3/uL (0.0-0.1); BASOPHILS % (AUTO) 1 % (0-10); EOSINOPHILS # (AUTO) 0.3 10^3/uL (0.0-0.3); EOSINOPHILS % (AUTO) 3 % (0-10); HEMATOCRIT 31 % (35-52); HEMOGLOBIN 9.7 g/dL (11.5-16.0); LYMPHOCYTES # (AUTO) 1.1 10^3/uL (1.0-4.0); LYMPHOCYTES % (AUTO) 14 % (12-44); MEAN CORPUSCULAR HEMOGLOBIN 31 pg (25-34); MEAN CORPUSCULAR HGB CONC 31 g/dL (32-36); MEAN CORPUSCULAR VOLUME 100 fL (80-99); MONOCYTES # (AUTO) 0.7 10^3/uL (0.0-1.0); MONOCYTES % (AUTO) 9 % (0-12); NEUTROPHILS # (AUTO) 5.8 10^3/uL (1.8-7.8); NEUTROPHILS % (AUTO) 73 % (42-75); PLATELET COUNT 168 10^3/uL (130-400); WHITE BLOOD COUNT 7.9 10^3/uL (4.3-11.0)
[2021-08-04 05:38] LABS: CHLORIDE 104 MMOL/L (98-107); SODIUM 142 MMOL/L (135-145)
[2021-08-04 05:39] LABS: ALBUMIN 2.8 GM/DL (3.2-4.5)
[2021-08-04 05:40] LABS: TRIGLYCERIDES 131 MG/DL (<150); VLDL CHOLESTEROL 26 MG/DL (5-40)
[2021-08-04 05:41] LABS: GLUCOSE 128 MG/DL (70-105); TOTAL PROTEIN 6.3 GM/DL (6.4-8.2)
[2021-08-04 05:42] LABS: CARBON DIOXIDE 23 MMOL/L (21-32)
[2021-08-04 05:43] LABS: BILIRUBIN,TOTAL 0.5 MG/DL (0.1-1.0)
[2021-08-04 05:45] LABS: ALKALINE PHOSPHATASE 88 U/L (40-136); CREATININE SERUM 1.22 MG/DL (0.60-1.30); GFR ESTIMATED 48
[2021-08-04 05:46] LABS: BUN/CREATININE RATIO 13; CHOLESTEROL 125 MG/DL (< 200)
[2021-08-04 05:47] LABS: HDL CHOLESTEROL 24 MG/DL (40-60)
[2021-08-04 05:48] LABS: ALANINE AMINOTRANSFERASE < 6 U/L (0-55)
[2021-08-04] MEDS: inSUlin ASPART (NovoLOG) 1 UNIT/0.01 ML (CHARGE PER UNIT) SC SCH ×2 (06:23→11:26)
[2021-08-04] MEDS ORDERED: LEVOTHYROXINE 112 MCG (LEVOTHROID) TAB PO SCH (06:30)
[2021-08-04] MEDS ORDERED: LEVOTHYROXINE 25 MCG (LEVOTHROID) TAB PO SCH (06:30)
[2021-08-04] MEDS ORDERED: PIOGLITAZONE 30MG (ACTOS) TAB PO SCH (07:00)
[2021-08-04] MEDS ORDERED: MAGNESIUM OXIDE (MAG-OX)400 MG TAB PO SCH (08:00)
[2021-08-04] MEDS ORDERED: ZINC SULFATE 220 MG CAPSULE PO SCH (08:00)
[2021-08-04] MEDS: DOCUSATE SODIUM 100 MG (COLACE) CAP PO SCH (08:13)
[2021-08-04] MEDS: SENNOSIDES 8.6 MG (SENOKOT) TAB PO SCH (08:14)
--- NOTE | 2021-08-04 08:34 | Tele-ICU Progress Note ---
Subjective Date Seen by a Provider: Aug 04, 2021 Time Seen by a Provider: 08:30 Subjective/Events-last exam Bradycardia is improved, TSH is normal Was on 3 lpm NC with SpO 97% Now oxygen off and SpO2 92% CXR from yesterday ok Sepsis Event Evaluation Height, Weight, BMI Height: 5'1.00" Weight: 271lbs. 7.6oz. 123.916581mb; 49.75 BMI Method:Stated Focused Exam Lactate Level 08/03/21 15:55: Lactic Acid Level 0.56 Exam Exam Patient acknowledged, consented, and participated in this virtual visit which was conducted using real time audio/video Vital Signs Date Time Temp Pulse Resp B/P (MAP) Pulse Ox O2 Delivery O2 Flow Rate FiO2 08/04/21 08:00 61 16 117/40 (65) 97 Nasal Cannula 3.00 08/04/21 08:00 Nasal Cannula 3.00 08/04/21 07:42 36.1 08/04/21 07:00 52 14 123/53 (76) 93 Nasal Cannula 3.00 08/04/21 07:00 59 08/04/21 06:00 61 13 111/46 (67) 95 Nasal Cannula 3.00 08/04/21 05:00 61 14 116/47 (70) 96 Nasal Cannula 3.00 08/04/21 04:00 66 15 112/45 (67) 95 Nasal Cannula 3.00 08/04/21 03:49 Nasal Cannula 3.00 08/04/21 03:00 65 18 118/46 (70) 96 Nasal Cannula 3.00 08/04/21 02:16 60 15 36.00 08/04/21 02:00 58 22 115/44 (67) 96 Nasal Cannula 3.00 08/04/21 01:00 63 08/04/21 01:00 62 17 129/51 (77) 95 Nasal Cannula 3.00 08/04/21 00:00 65 15 133/49 (77) 97 Nasal Cannula 3.00 08/03/21 23:49 Nasal Cannula 3.00 08/03/21 23:00 71 14 115/60 (78) 96 Nasal Cannula 3.00 08/03/21 22:00 64 15 147/77 (100) 96 Nasal Cannula 3.00 08/03/21 21:42 58 14 38.00 08/03/21 21:00 52 17 97 Nasal Cannula 3.00 08/03/21 20:00 56 14 161/107 (125) 97 Nasal Cannula 3.00 08/03/21 19:49 Nasal Cannula 3.00 08/03/21 19:00 60 08/03/21 19:00 61 21 150/66 (94) 99 Nasal Cannula 3.00 08/03/21 18:00 58 15 144/108 (120) 100 Nasal Cannula 3.00 08/03/21 17:00 57 12 166/78 (107) 98 Nasal Cannula 3.00 08/03/21 16:00 57 8 158/49 (85) 100 Nasal Cannula 3.00 08/03/21 15:49 Nasal Cannula 3.00 08/03/21 15:31 57 99 08/03/21 15:00 55 26 100 08/03/21 14:00 52 13 153/107 (122) 99 Nasal Cannula 3.00 08/03/21 13:49 57 08/03/21 13:30 53 10 129/107 (114) 99 Nasal Cannula 3.00 I & O 08/04/21 06:59 Intake Total 825 ml Output Total 600 ml Balance 225 ml Height & Weight Height: 5'1.00" Weight: 271lbs. 7.6oz. 123.185600vb; 49.75 BMI Method:Stated General Appearance: No Apparent Distress, WD/WN, Chronically ill, Obese HEENT: PERRL/EOMI, Normal ENT Inspection, Pharynx Normal, Moist Mucous Me mbranes Neck: Full Range of Motion, Normal Inspection, Non Tender Respiratory: Chest Non Tender, Lungs Clear, Normal Breath Sounds, No Accessory Muscle Use, No Respiratory Distress, Decreased Breath Sounds Cardiovascular: Regular Rate, Rhythm, No Edema, No Gallop, No JVD, No Murmur, Normal Peripheral Pulses, Bradycardia Gastrointestinal: normal bowel sounds, non tender Extremity: Normal Capillary Refill, Normal Inspection, Normal Range of Motion, Non Tender, No Calf Tenderness, No Pedal Edema, Pedal Edema (+2 leg edema, chronic) Neurologic/Psychiatric: Alert, Oriented x3, No Motor/Sensory Deficits, Normal Mood/Affect Skin: Normal Color, Warm/Dry Lymphatic: No Adenopathy Results Lab Laboratory Tests 08/03/21 15:55 08/03/21 19:55 08/04/21 04:56 Assessment/Plan Assessment/Plan A/P Bradycardia - w/up as per cardiology -BP stable , no signs of end-organ hypoperfusion now May be able to go to floor Acute resp hypoxix failure - post op - most likley due to post obstructiove edema and muscle weaknes post anaest medication - monitor on O2 , expet impeovement - might need diuretics , but will await cards assessment and labs h/o DAVID - cont CPAP at night s/p wrist sx today - pain control - other recom as per sx DM - ISS Critical Care: Critically Ill Patient WILMA GARDNER MD Aug 04, 2021 08:33
[2021-08-04] MEDS ORDERED: ASPIRIN E.C. 81 MG (ECOTRIN) TAB PO SCH (09:00)
[2021-08-04] MEDS ORDERED: GABAPENTIN 600 MG (NEURONTIN) TAB PO SCH (09:00)
[2021-08-04] MEDS ORDERED: ALLOPURINOL 100 MG (ZYLOPRIM) TAB PO SCH (09:00)
[2021-08-04] MEDS ORDERED: FUROSEMIDE 20 MG (LASIX) TAB PO SCH (09:00)
--- NOTE | 2021-08-04 10:06 | Diagnostic Imaging Report ---
INDICATION: Dyspnea. COMPARISON: 08/03/2021. DISCUSSION: Two views of the chest were obtained. Diffuse bilateral mixed interstitial and alveolar infiltrates are again noted bilaterally, likely edema or pneumonia. Normal heart size. Elevated right hemidiaphragm. No pleural fluid or pneumothorax. No osseous abnormality. IMPRESSION: Bilateral pulmonary infiltrates, stable. Dictated by: Dictated on workstation # [id number]
--- NOTE | 2021-08-04 10:23 | Cardiology Progress Note ---
Progress Note-Cardiology Events since last exam Date Seen by Provider: Aug 04, 2021 Time Seen by Provider: 10:17 Events since last exam I am following her due to bradycardia and pulmonary infiltrates. She states that ever since having Covid 1 month ago, she has had some mild dyspnea on exertion. She was not hospitalized for the Covid infection. She denies chest discomfort, palpitations, or syncope. Her peripheral edema has improved since being admitted yesterday. Certain portions of this document may have been dictated utilizing voice recognition technology. Inherent to this technology, typographical and grammatical errors may exist. As much as I am diligent to identify and correct these mistakes, some errors may remain in the document. Vitals Last set of Vitals Signs Vital Signs 08/04/21 08/04/21 07:42 09:00 Temp 36.1 Pulse 53 Resp 15 B/P (MAP) 129/54 (79) Pulse Ox 93 O2 Delivery Nasal Cannula O2 Flow Rate 3.00 Labs Labs Laboratory Tests 08/03/21 15:55 08/03/21 19:55 08/04/21 04:56 Exam Vital Signs Vital Signs Date Time Temp Pulse Resp B/P (MAP) Pulse Ox O2 Delivery O2 Flow Rate FiO2 08/04/21 09:00 53 15 129/54 (79) 93 Nasal Cannula 3.00 08/04/21 07:42 36.1 Physical Exam General: Alert. No acute distress. She is morbidly obese. Eye: No xanthelasma. HENT: Normocephalic. Neck: Jugular venous pressure does not appear elevated. Respiratory: Lungs are clear to auscultation. Respirations are non-labored. Breath sounds are equal. Symmetrical chest wall expansion. Cardiovascular: Normal rate. Regular rhythm. No murmur. No gallop. Trace bilateral pretibial edema. Gastrointestinal: Soft. Normal bowel sounds. Skin: Warm. Dry. Neurologic: Alert and oriented to person, place, time. Cranial nerves 3-11 grossly intact. Psychiatric: Cooperative. Appropriate mood & affect. Labs Laboratory Tests Test 08/03/21 14:10 08/03/21 15:05 08/03/21 15:55 08/03/21 16:50 Range/Units Blood Gas Puncture Site RT BRACH Blood Gas Patient Temperature 36.0 Arterial Blood pH 7.36 L 7.37-7.43 Arterial Blood Partial Pressure CO2 53 H 35-45 MMHG Arterial Blood Partial Pressure O2 93 79-93 MMHG Arterial Blood HCO3 29 H 23-27 MMOL/L Arterial Blood Total CO2 31.0 21.0-31.0 MMOL/L Arterial Blood Oxygen Saturation 98 94-100 % Arterial Blood Base Excess 4.0 H -2.5-2.5 MMOL/L Yannick Test YES-POS Blood Gas Ventilator Setting NO Blood Gas Inspired Oxygen 4 L Troponin I < 0.028 <0.028 NG/ML Procalcitonin 0.02 <0.10 NG/ML D-Dimer 1.52 H 0.00-0.49 UG/ML Sodium Level 141 135-145 MMOL/L Potassium Level 4.5 3.6-5.0 MMOL/L Chloride Level 105 98-107 MMOL/L Carbon Dioxide Level 20 L 21-32 MMOL/L Anion Gap 16 H 5-14 MMOL/L Blood Urea Nitrogen 13 7-18 MG/DL Creatinine 0.98 0.60-1.30 MG/DL Estimat Glomerular Filtration Rate 62 BUN/Creatinine Ratio 13 Glucose Level 53 *L 70-105 MG/DL Lactic Acid Level 0.56 0.50-2.00 MMOL/L Calcium Level 8.9 8.5-10.1 MG/DL Corrected Calcium 9.5 8.5-10.1 MG/DL Total Bilirubin 0.6 0.1-1.0 MG/DL Aspartate Amino Transf (AST/SGOT) 25 5-34 U/L Alanine Aminotransferase (ALT/SGPT) < 6 0-55 U/L Alkaline Phosphatase 108 40-136 U/L B-Type Natriuretic Peptide 355.7 H <100.0 PG/ML Total Protein 7.4 6.4-8.2 GM/DL Albumin 3.2 3.2-4.5 GM/DL Thyroid Stimulating Hormone (TSH) 2.16 0.35-4.94 UIU/ML Glucometer 73 70-110 MG/DL Test 08/03/21 19:55 08/03/21 20:28 08/04/21 04:56 Range/Units White Blood Count 8.7 7.9 4.3-11.0 10^3/uL Red Blood Count 3.39 L 3.13 L 3.80-5.11 10^6/uL Hemoglobin 10.6 L 9.7 L 11.5-16.0 g/dL Hematocrit 33 L 31 L 35-52 % Mean Corpuscular Volume 99 100 H 80-99 fL Mean Corpuscular Hemoglobin 31 31 25-34 pg Mean Corpuscular Hemoglobin Concent 32 31 L 32-36 g/dL Red Cell Distribution Width 16.4 H 16.5 H 10.0-14.5 % Platelet Count 193 168 130-400 10^3/uL Mean Platelet Volume 9.7 10.0 9.0-12.2 fL Immature Granulocyte % (Auto) 0 0 % Neutrophils (%) (Auto) 78 H 73 42-75 % Lymphocytes (%) (Auto) 12 14 12-44 % Monocytes (%) (Auto) 6 9 0-12 % Eosinophils (%) (Auto) 4 3 0-10 % Basophils (%) (Auto) 1 1 0-10 % Neutrophils # (Auto) 6.8 5.8 1.8-7.8 10^3/uL Lymphocytes # (Auto) 1.0 1.1 1.0-4.0 10^3/uL Monocytes # (Auto) 0.5 0.7 0.0-1.0 10^3/uL Eosinophils # (Auto) 0.3 0.3 0.0-0.3 10^3/uL Basophils # (Auto) 0.1 0.1 0.0-0.1 10^3/uL Immature Granulocyte # (Auto) 0.0 0.0 0.0-0.1 10^3/uL Glucometer 107 70-110 MG/DL Sodium Level 142 135-145 MMOL/L Potassium Level 4.0 3.6-5.0 MMOL/L Chloride Level 104 98-107 MMOL/L Carbon Dioxide Level 23 21-32 MMOL/L Anion Gap 15 H 5-14 MMOL/L Blood Urea Nitrogen 16 7-18 MG/DL Creatinine 1.22 0.60-1.30 MG/DL Estimat Glomerular Filtration Rate 48 BUN/Creatinine Ratio 13 Glucose Level 128 H 70-105 MG/DL Calcium Level 9.0 8.5-10.1 MG/DL Corrected Calcium 10.0 8.5-10.1 MG/DL Total Bilirubin 0.5 0.1-1.0 MG/DL Aspartate Amino Transf (AST/SGOT) 16 5-34 U/L Alanine Aminotransferase (ALT/SGPT) < 6 0-55 U/L Alkaline Phosphatase 88 40-136 U/L Total Protein 6.3 L 6.4-8.2 GM/DL Albumin 2.8 L 3.2-4.5 GM/DL Triglycerides Level 131 <150 MG/DL Cholesterol Level 125 < 200 MG/DL LDL Cholesterol Direct 86 1-129 MG/DL VLDL Cholesterol 26 5-40 MG/DL HDL Cholesterol 24 L 40-60 MG/DL Diagnosis/Problems Diagnosis/Problems (1) Bradycardia Assessment & Plan: This resolved overnight. She has a known history of bradycardia that has been asymptomatic in the past. Her TSH level was normal. Her echocardiogram from this admission shows a normal ejection fraction. I would just recommend avoiding any AV lico blocking agents such as beta-mera or diltiazem. There is no indication for temporary or permanent pacemaker at this time. (2) Pulmonary infiltrate Assessment & Plan: Her chest x-ray from admission showed scattered pulmonary infiltrates and her BNP is elevated. Her chest x-ray from 08/04 also shows pulmonary infiltrates. This could be a sign of acute heart failure versus some other etiology, perhaps some residual changes from the recent Covid infection. I will give her another dose of intravenous Lasix. I would be inclined to keep her 1 more day and obtain a follow-up metabolic panel and two-view chest x-ray i n the morning. She did have a slight rise in her creatinine since admission. (3) Mitral stenosis Assessment & Plan: Her echocardiogram showed mild mitral stenosis. This appears to be a new finding in this patient. This should not be causing symptoms but will need to be followed longitudinally by her regular rn complex care. (4) Mixed hyperlipidemia Assessment & Plan: Continue atorvastatin. 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 Some of this may have been due to the diuretic she was administered yesterday. The hospitalist is managing the diabetes. If the hospitalist decides to have her stay 1 additional night, I would recommend a follow-up metabolic panel in the morning. (6) Morbid obesity Assessment & Plan: She needs to work on weight loss. This is probably contributing to some of her symptoms such as dyspnea and peripheral edema. (7) Obstructive sleep apnea of adult Assessment & Plan: Continue CPAP at home. CLAUDIA ALARCON JR, MD Aug 04, 2021 10:23
[2021-08-04] MEDS ORDERED: FUROSEMIDE 40 MG/4 ML INJ (LASIX) IVP ONE (10:30)
[2021-08-04] MEDS ORDERED: INSU200I4 SQ (11:22)
--- NOTE | 2021-08-04 11:23 | Discharge Summary ---
Discharge Summary Hospital Course Was the Problem List Reviewed?: Yes Problems/Dx: (1) Bradycardia (2) Pulmonary infiltrate (3) Mitral stenosis (4) Mixed hyperlipidemia (5) Type 2 diabetes mellitus with complication (6) Morbid obesity (7) Obstructive sleep apnea of adult Hospital Course Date of Admission: Aug 03, 2021 at 13:24 Admission Diagnosis : Family Physician/Provider: [facility] Date of Discharge: 08/04/21 Discharge Diagnosis: Postop bradycardia and hypoxia, DAVID on CPAP, nocturnal hypoxia, hypoxia requiring continuous oxygen supplementation, volume overload Hospital Course: Patient had a short hospital course after she was admitted from [facility] when postoperatively she became bradycardic in 30s and hypoxic. The decision was made to admit to the ICU with cardiology consultation close monitoring. She was placed on CPAP and did very well. Lasix given for volume overload. She was overall doing well no evidence of any type of sepsis or any other dangerous causes of hypoxia and bradycardia and she was discharged improved condition on continuous oxygen. Insulin was adjusted down due to hypoglycemia. Labs and Pending Lab Test: Laboratory Tests 08/03/21 14:10: Blood Gas Puncture Site RT BRACH, Blood Gas Patient Temperature 36.0, Arterial Blood pH 7.36L, Arterial Blood Partial Pressure CO2 53H, Arterial Blood Partial Pressure O2 93, Arterial Blood HCO3 29H, Arterial Blood Total CO2 31.0, Arterial Blood Oxygen Saturation 98, Arterial Blood Base Excess 4.0H, Yannick Test YES-POS, Blood Gas Ventilator Setting NO, Blood Gas Inspired Oxygen 4 L 08/03/21 15:05: Troponin I < 0.028, Procalcitonin 0.02 08/03/21 15:55: D-Dimer 1.52H, Sodium Level 141, Potassium Level 4.5, Chloride Level 105, Carbon Dioxide Level 20L, Anion Gap 16H, Blood Urea Nitrogen 13, Creatinine 0.98, Estimat Glomerular Filtration Rate 62, BUN/Creatinine Ratio 13, Glucose Level 53*L, Lactic Acid Level 0.56, Calcium Level 8.9, Corrected Calcium 9.5, Total Bilirubin 0.6, Aspartate Amino Transf (AST/SGOT) 25, Alanine Aminotransferase (ALT/SGPT) < 6, Alkaline Phosphatase 108, B-Type Natriuretic Peptide 355.7H, Total Protein 7.4, Albumin 3.2, Thyroid Stimulating Hormone (TSH) 2.16 08/03/21 16:50: Glucometer 73 08/03/21 19:55: White Blood Count 8.7, Red Blood Count 3.39L, Hemoglobin 10.6L, Hematocrit 33L, Mean Corpuscular Volume 99, Mean Corpuscular Hemoglobin 31, Mean Corpuscular Hemoglobin Concent 32, Red Cell Distribution Width 16.4H, Platelet Count 193, Mean Platelet Volume 9.7, Immature Granulocyte % (Auto) 0, Neutrophils (%) (Auto) 78H, Lymphocytes (%) (Auto) 12, Monocytes (%) (Auto) 6, Eosinophils (%) (Auto) 4, Basophils (%) (Auto) 1, Neutrophils # (Auto) 6.8, Lymphocytes # (Auto) 1.0, Monocytes # (Auto) 0.5, Eosinophils # (Auto) 0.3, Basophils # (Auto) 0.1, Immature Granulocyte # (Auto) 0.0 08/03/21 20:28: Glucometer 107 08/04/21 04:56: White Blood Count 7.9, Red Blood Count 3.13L, Hemoglobin 9.7L, Hematocrit 31L, Mean Corpuscular Volume 100H, Mean Corpuscular Hemoglobin 31, Mean Corpuscular Hemoglobin Concent 31L, Red Cell Distribution Width 16.5H, Platelet Count 168, Mean Platelet Volume 10.0, Immature Granulocyte % (Auto) 0, Neutrophils (%) (Auto) 73, Lymphocytes (%) (Auto) 14, Monocytes (%) (Auto) 9, Eosinophils (%) (Auto) 3, Basophils (%) (Auto) 1, Neutrophils # (Auto) 5.8, Lymphocytes # (Auto) 1.1, Monocytes # (Auto) 0.7, Eosinophils # (Auto) 0.3, Basophils # (Auto) 0.1, Immature Granulocyte # (Auto) 0.0, Sodium Level 142, Potassium Level 4.0, Chloride Level 104, Carbon Dioxide Level 23, Anion Gap 15H, Blood Urea Nitrogen 16, Creatinine 1.22, Estimat Glomerular Filtration Rate 48, BUN/Creatinine Ratio 13, Glucose Level 128H, Calcium Level 9.0, Corrected Calcium 10.0, Total Bilirubin 0.5, Aspartate Amino Transf (AST/SGOT) 16, Alanine Aminotransferase (ALT/SGPT) < 6, Alkaline Phosphatase 88, Total Protein 6.3L, Albumin 2.8L, Triglycerides Level 131, Cholesterol Level 125, LDL Cholesterol Direct 86, VLDL Cholesterol 26, HDL Cholesterol 24L 08/04/21 10:46: Glucometer 116H Home Meds Active Reported Zinc 50 Mg Tablet 50 Mg PO DAILY Gabapentin 600 Mg Tablet 600 Mg PO BID Amox Tr-K Clv 875-125 mg Tab (Amoxicillin/Potassium Clav) 1 Each Tablet 1 Ea PO BID FILLED 07-25-2021 #20/10 DAY SUPPLY Levothyroxine Sodium 137 Mcg Tablet 137 Mcg PO DAILY Furosemide 20 Mg Tablet 20 Mg PO DAILY Mupirocin 22 Gm Oint...g. 1 Applic TOP TID PRN Allopurinol 100 Mg Tablet 100 Mg PO DAILY Ozempic (Semaglutide) 1 Mg/0.75 Ml Pen.injctr 1 Mg IJ MON Escitalopram Oxalate 20 Mg Tablet 20 Mg PO DAILY Magnesium Oxide 400 Mg Tablet 400 Mg PO DAILY Tresiba Flextouch U-200 (Insulin Degludec) 200 Unit/1 Ml Insuln.pen 30 Unit SQ HS Tylenol Extra Strength (Acetaminophen) 500 Mg Tablet 1,000 Mg PO Q6H PRN Pioglitazone HCl 45 Mg Tablet 45 Mg PO DAILY Fish Oil 1,200 mg Softgel (Beaumont-3 Fatty Acids/Fish Oil) 1 Each Capsule 2,400 Mg PO BID TAKES 2 (1,200 MG) CAPSULES Atorvastatin Calcium 40 Mg Tablet 40 Mg PO DAILY Adult Low Dose Aspirin EC (Aspirin) 81 Mg Tablet.dr 81 Mg PO DAILY Assessment/Pt Instructions PCP in 1 week Discharge Planning: <30 minutes discharge planning Discharge Instructions Discharge Diet: ADA Diet Activity as Tolerated: Yes Discharge Physical Examination Vital Signs Vital Signs Date Time Temp Pulse Resp B/P (MAP) Pulse Ox O2 Delivery O2 Flow Rate FiO2 08/04/21 10:35 Nasal Cannula 5.00 08/04/21 10:20 93 08/04/21 10:00 63 109/34 (59) 08/04/21 09:00 15 08/04/21 07:42 36.1 General Appearance: No Apparent Distress, WD/WN, Chronically ill, Obese Respiratory: Lungs Clear, Normal Breath Sounds Cardiovascular: Regular Rate, Rhythm Neurologic/Psychiatric: Alert, Oriented x3 Allergies: Coded Allergies: codeine (Verified Allergy, Severe, ITCHING, 03/09/17) Discharge Summary Date of Admission Aug 03, 2021 at 13:24 Date of Discharge Discharge Date: Aug 04, 2021 Admission Diagnosis Assessment: [facility] uncomplicated Hypoxia acute on chronic post op prompting transfer to ICU full service hos[ital Obesity DM DAVID on CPAP with 2L/min O2 HTN HLP Plan: CPAP with O2 Insulin Home meds Cardiology Discharge Diagnosis (1) Bradycardia Assessment & Plan: This resolved overnight. She has a known history of bradycardia that has been asymptomatic in the past. Her TSH level was normal. Her echocardiogram from this admission shows a normal ejection fraction. I would just recommend avoiding any AV lico blocking agents such as beta-mera or diltiazem. There is no indication for temporary or permanent pacemaker at this time. (2) Pulmonary infiltrate Assessment & Plan: Her chest x-ray from admission showed scattered pulmonary infiltrates and her BNP is elevated. Her chest x-ray from 08/04 also shows pulmonary infiltrates. This could be a sign of acute heart failure versus some other etiology, perhaps some residual changes from the recent Covid infection. I will give her another dose of intravenous Lasix. I would be inclined to keep her 1 more day and obtain a follow-up metabolic panel and two-view chest x-ray in the morning. She did have a slight rise in her creatinine since admission. (3) Mitral stenosis Assessment & Plan: Her echocardiogram showed mild mitral stenosis. This appears to be a new finding in this patient. 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 (4) Mixed hyperlipidemia Assessment & Plan: Continue atorvastatin. 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 Some of this may have been due to the diuretic she was administered yesterday. The hospitalist is managing the diabetes. If the hospitalist decides to have her stay 1 additional night, I would recommend a follow-up metabolic panel in the morning. (6) Morbid obesity Assessment & Plan: She needs to work on weight loss. This is probably contributing to some of her symptoms such as dyspnea and peripheral edema. (7) Obstructive sleep apnea of adult Assessment & Plan: Continue CPAP at home. MIGEL ECHAVARRIA DO Aug 04, 2021 11:23
== END 2021-08-04 14:00 | disposition home or self-care (01) ==
LOC: ICU 13:24
PROVIDERS: ADMIT Internal Medicine; ATTEND Internal Medicine
DX: I97.89 Other postprocedural complications and disorders of the circulatory system, not elsewhere classified (principal); J95.89 Other postprocedural complications and disorders of respiratory system, not elsewhere classified; G47.33 Obstructive sleep apnea (adult) (pediatric); R09.02 Hypoxemia; I10 Essential (primary) hypertension; E11.649 Type 2 diabetes mellitus with hypoglycemia without coma; E87.70 Fluid overload, unspecified; I34.2 Nonrheumatic mitral (valve) stenosis; E78.5 Hyperlipidemia, unspecified; E78.2 Mixed hyperlipidemia; E66.01 Morbid (severe) obesity due to excess calories; R91.8 Other nonspecific abnormal finding of lung field; Z99.89 Dependence on other enabling machines and devices; Z79.4 Long term (current) use of insulin; Z79.899 Other long term (current) drug therapy; Z68.42 Body mass index [BMI] 45.0-49.9, adult
CPT/HCPCS: 36415; 71045; 71046; 80053; 80061; 82805; 82947; 83605; 83880; 84145; 84443; 84484; 85025; 85379; 87081; 93005; 93306; 94640; 94660; 94761; 96374; G0378

== ENCOUNTER → 2021-08-08 | Outpatient (CLI) | payer MEDICARE ==
[~2021-08-08] MED LIST changes: +ALLO100T PO; +AMOX1TAB12 PO; +ESCI20TA39 PO; +FURO20TA4 PO; +GBPN600T PO; +LEVO137T2 PO; +MAGN400T7 PO; +MUPI22OI2 TOP; +SEMA1PEN3 IJ; +ZINC50TA58 PO
[2021-08-08 09:55] LABS: HEMATOCRIT 36 % (35-52); HEMOGLOBIN 11.2 g/dL (11.5-16.0); MEAN CORPUSCULAR HEMOGLOBIN 31 pg (25-34); MEAN CORPUSCULAR HGB CONC 31 g/dL (32-36); MEAN CORPUSCULAR VOLUME 99 fL (80-99); MEAN PLATELET VOLUME 10.3 fL (9.0-12.2); PLATELET COUNT 177 10^3/uL (130-400); WHITE BLOOD COUNT 7.1 10^3/uL (4.3-11.0)
[2021-08-08 10:06] LABS: BILIRUBIN,URINE NEGATIVE (NEGATIVE); CLARITY,URINE CLEAR; COLOR,URINE YELLOW; GLUCOSE, URINE (UA) NEGATIVE (NEGATIVE); KETONES,URINE NEGATIVE (NEGATIVE); LEUKOCYTE ESTERASE ,URINE TRACE (NEGATIVE); NITRITE,URINE NEGATIVE (NEGATIVE); PROTEIN,URINE NEGATIVE (NEGATIVE)
[2021-08-08 10:17] LABS: ALBUMIN 3.5 GM/DL (3.2-4.5); CALCIUM 9.3 MG/DL (8.5-10.1); CREATININE SERUM 1.04 MG/DL (0.60-1.30); PHOSPHORUS 3.1 MG/DL (2.3-4.7); URIC ACID 6.7 MG/DL (2.6-7.2)
[2021-08-08 10:23] LABS: BACTERIA,URINE TRACE /HPF; RBC,URINE RARE /HPF; SQUAMOUS EPITHELIAL CELL,UR 0-2 /HPF; WBC,URINE 0-2 /HPF
== END ==
LOC: LAB 09:21
PROVIDERS: ATTEND Nurse Practitioner
DX: N18.31 Chronic kidney disease, stage 3a (principal)
CPT/HCPCS: 36415; 80069; 81000; 82043; 82306; 83970; 84550; 85027

== ENCOUNTER → 2021-12-17 | Outpatient (CLI) | payer MEDICARE ==
[2021-12-17 10:53] LABS: BASOPHILS # (AUTO) 0.1 10^3/uL (0.0-0.1); BASOPHILS % (AUTO) 1 % (0-10); EOSINOPHILS # (AUTO) 0.3 10^3/uL (0.0-0.3); EOSINOPHILS % (AUTO) 4 % (0-10); HEMATOCRIT 37 % (35-52); HEMOGLOBIN 11.7 g/dL (11.5-16.0); LYMPHOCYTES # (AUTO) 1.6 10^3/uL (1.0-4.0); LYMPHOCYTES % (AUTO) 20 % (12-44); MEAN CORPUSCULAR HEMOGLOBIN 31 pg (25-34); MEAN CORPUSCULAR HGB CONC 32 g/dL (32-36); MEAN CORPUSCULAR VOLUME 97 fL (80-99); MONOCYTES # (AUTO) 0.7 10^3/uL (0.0-1.0); MONOCYTES % (AUTO) 9 % (0-12); NEUTROPHILS # (AUTO) 5.6 10^3/uL (1.8-7.8); NEUTROPHILS % (AUTO) 67 % (42-75); PLATELET COUNT 187 10^3/uL (130-400); WHITE BLOOD COUNT 8.4 10^3/uL (4.3-11.0)
[2021-12-17 11:09] LABS: BASOPHILS % (MANUAL) 0 %; EOSINOPHILS % (MANUAL) 6 %; LYMPHOCYTES % (MANUAL) 21 %; MONOCYTES % (MANUAL) 7 %; NEUTROPHILS % (MANUAL) 66 %
[2021-12-17 11:10] LABS: ALBUMIN 3.4 GM/DL (3.2-4.5); POTASSIUM 3.4 MMOL/L (3.6-5.0)
[2021-12-17 11:11] LABS: CALCIUM 9.1 MG/DL (8.5-10.1)
[2021-12-17 11:12] LABS: ANISOCYTOSIS SLIGHT
[2021-12-17 11:13] LABS: TOTAL PROTEIN 7.1 GM/DL (6.4-8.2)
[2021-12-17 11:14] LABS: BILIRUBIN,TOTAL 0.5 MG/DL (0.1-1.0)
[2021-12-17 11:16] LABS: CREATININE SERUM 1.16 MG/DL (0.60-1.30)
== END ==
LOC: LAB 10:15
DX: E11.43 Type 2 diabetes mellitus with diabetic autonomic (poly)neuropathy (principal)
CPT/HCPCS: 36415; 80053; 80061; 82306; 83036; 84443; 85007; 85027

== ENCOUNTER 2022-02-03 11:58 | Observation (INO) | payer MEDICARE ==
[~2022-02-03] VITALS: Ht 154.9 cm; Wt 115.0 kg
--- NOTE | 2022-02-03 12:56 | ED Respiratory ---
General Chief Complaint: Respiratory Problems Stated Complaint: SPIDER BITE, SOB, NAUSEA Nursing Triage Note: ARRIVED VIA AMB WITH BASSEM. STATES IT STARTED A WEEK AGO WHEN SHE WAS BIT BY A SPIDER ON HER RIGHT LOWER ARM. WAS SEEN AT [facility] AND PUT ON AN UNKNOWN ABX WED. Source: patient Exam Limitations: no limitations History of Present Illness Date Seen by Provider: Feb 03, 2022 Time Seen by Provider: 12:30 Initial Comments Patient is a 71-year-old female who presents to the emergency department today with a chief complaint of epigastric/lower chest discomfort/"pressure" onset approximately a week ago. Patient states that every time she gets up and exerts herself she experiences this pressure with shortness of breath and some nausea. Concomitantly she developed a "spider bite" while at [employer] about a week ago on Friday. She put me tenderizer on it and it drained a significant amount she states. She went to [facility] urgent care and was prescribed some antibiotics for 7 days. She is currently on day 4. She has been taking them twice a day. No significant pain, redness, fever or swelling. She states the bite area is at least "50%" better than it was at its worst. 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 Patient is not having any chest pressure at this moment. She did experience a little bit when walking into [employer] as well as when walking into the hospital. She has no known coronary artery disease. She does wear CPAP at night but no oxygen during the day. She has a remote history of smoking, quit 40 years ago. She does follow with Dr. Anderson for blood pressure management. She does see a manager net for chronic kidney disease. She is a diabetic. No recent fevers, chills, cough or congestion. No swelling in her legs that is unusual or cramping in her calves. No history of blood clot. No recent prolonged immobility. She states that she has had a stress test in the past although it has been "years ago". She has had an echo by Dr. Anderson in the past but she does not know her ejection fraction. Significant family history of coronary artery disease in multiple family members as well as many family members with cancer. All other review of systems reviewed and negative except as stated. Timing/Duration: week, getting worse Severity: mild, moderate Modifying Factors: Worse With Activity; Improves With Rest Associated Symptoms: shortness of breath, other (nausea) Allergies and Home Medications Allergies Coded Allergies: codeine (Verified Allergy, Severe, ITCHING, 03/09/17) Patient Home Medication List Home Medication List Reviewed: Yes Acetaminophen (Tylenol Extra Strength) 500 Mg Tablet, 1,000 MG PO Q6H PRN for PAIN-MILD, (Reported) Entered as Reported by: DEON WAGNER on 08/26/17 0911 Last Action: Reviewed Allopurinol (Allopurinol) 100 Mg Tablet, 100 MG PO DAILY, (Reported) Entered as Reported by: AD JOHNSON on 08/03/21 160 Last Action: Reviewed Aspirin (Adult Low Dose Aspirin EC) 81 Mg Tablet.dr, 81 MG PO DAILY, (Reported) Entered as Reported by: EDSON BARTON on 09/17/16 0729 Last Action: Reviewed Atorvastatin Calcium (Atorvastatin Calcium) 40 Mg Tablet, 40 MG PO DAILY, (Reported) Entered as Reported by: CARLOS CANTRELL on 09/17/16 1105 Last Action: Reviewed Enoxaparin Sodium (Enoxaparin Sodium) 120 Mg/0.8 Ml Syringe, 110 MG SQ Q24H Prescribed by: MIGEL ECHAVARRIA on 02/04/222016 Escitalopram Oxalate (Escitalopram Oxalate) 20 Mg Tablet, 20 MG PO DAILY, (Reported) Entered as Reported by: AD JOHNSON on 08/03/21 160 Last Action: Reviewed Furosemide (Furosemide) 40 Mg Tablet, 40 MG PO DAILY, (Reported) Entered as Reported by: AD JOHNSON on 02/04/22 144 Last Action: Reviewed Gabapentin (Gabapentin) 600 Mg Tablet, 600 MG PO BID, (Reported) Entered as Reported by: AD JOHNSON on 08/03/21 160 Last Action: Reviewed Insulin Aspart (Novolog Flexpen) 100 Unit/Ml (3 Ml) Solution, UNITS SC SLIDING/SCALE PRN for HYPERGLYCEMIA, (Reported) Entered as Reported by: AD JOHNSON on 02/04/22 144 Last Action: Reviewed Insulin Degludec (Tresiba Flextouch U-200) 200 Unit/Ml (3 Ml) Insuln.pen, 40 UNIT SQ HS, (Reported) Entered as Reported by: AD JOHNSON on 02/04/221446 Last Action: Reviewed Levothyroxine Sodium (Levothyroxine Sodium) 137 Mcg Tablet, 137 MCG PO DAILY, (Reported) Entered as Reported by: AD JOHNSON on 08/03/211603 Last Action: Reviewed Losartan Potassium (Losartan Potassium) 25 Mg Tablet, 12.5 MG PO DAILY, (Reported) Entered as Reported by: AD JOHNSON on 02/04/221446 Last Action: Reviewed Magnesium Oxide (Magnesium Oxide) 400 Mg Tablet, 400 MG PO DAILY, (Reported) Entered as Reported by: AD JOHNSON on 08/03/211603 Last Action: Reviewed [place]-3 Fatty Acids/Fish Oil (Fish Oil 1,200 mg Softgel) 1 Each Capsule, 2,400 MG PO BID, (Reported) Entered as Reported by: CARLOS CANTRELL on 09/17/16 1105 Last Action: Reviewed Pioglitazone HCl (Pioglitazone HCl) 45 Mg Tablet, 45 MG PO DAILY, (Reported) Entered as Reported by: DEON WAGNER on 08/26/17 0900 Last Action: Reviewed Semaglutide (Ozempic) 1 Mg/0.75 Ml (4 Mg/3 Ml) Pen.injctr, 1 MG IJ MON, (Reported) Entered as Reported by: AD JOHNSON on 08/03/211603 Last Action: Reviewed Sulfamethoxazole/Trimethoprim (Bactrim Ds Tablet) 800 Mg-160 Mg Tablet, 1 EA PO BID, (Reported) Entered as Reported by: AD JOHNSON on 02/04/221446 Last Action: Reviewed Discontinued Medications Furosemide (Furosemide) 20 Mg Tablet, 20 MG PO DAILY, (Reported) Discontinued Reason: Duplicate Order Entered as Reported by: AD JOHNSON on 08/03/211603 Last Action: Discontinued Insulin Degludec (Tresiba Flextouch U-200) 200 Unit/1 Ml Insuln.pen, 15 UNIT SQ HS Discontinued Reason: Duplicate Order Prescribed by: MIGEL ECHAVARRIA on 08/04/21 1122 Last Action: Discontinued Mupirocin (Mupirocin) 22 Gm Oint...g., 1 APPLIC TOP TID PRN for RASH/INFECTION, (Reported) Discontinued Reason: No Longer Taking Entered as Reported by: AD JOHNSON on 08/03/211603 Last Action: Discontinued Zinc (Zinc) 50 Mg Tablet, 50 MG PO DAILY, (Reported) Discontinued Reason: No Longer Taking Entered as Reported by: AD JOHNSON on 08/03/211603 Last Action: Discontinued Review of Systems Review of Systems Constitutional: see HPI EENTM: no symptoms reported Respiratory: short of breath Cardiovascular: chest pain ("pressure") Gastrointestinal: nausea Genitourinary: no symptoms reported Musculoskeletal: no symptoms reported Skin: other (wound right volar forearm) All Other Systems Reviewed Negative Unless Noted: Yes Past Ugqrcoh-Klbwzh-Yezube Hx Patient Social History Tobacco Use?: No Substance use?: No Alcohol Use?: No Immunizations Up To Date Tetanus Booster (TDap): More than 5yrs COVID19 Vaccine Property Valuer: UNKNOWN Seasonal Allergies Seasonal Allergies: No Past Medical History Surgeries: Yes (r shoulder, r wrist) Adenoidectomy, Hysterectomy, Oophorectomy, Orthopedic, Tonsillectomy Respiratory: Yes Sleep Apnea Currently Using CPAP: Yes Cardiac: Yes (STRESS TEST 05/21/17--NORMAL, EF 69%) High Cholesterol, Hypertension Neurological: Yes Neuropathy Reproductive Disorders: No 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 FINANCE History: Hysterectomy, Menopausal Sexually Transmitted Disease: No Genitourinary: No (hx of acute renal failure) Gastrointestinal: Yes Gastroesophageal Reflux Musculoskeletal: Yes Endocrine: Yes (DM Type II; MORBID OBESITY) Diabetes, Insulin dep, Hypothyroidsim HEENT: Yes Cataract Cancer: No Psychosocial: Yes Depression Integumentary: No Blood Disorders: No Adverse Reaction/Blood Tranf: No Family Medical History Alzheimer's disease 19 MOTHER Diabetes mellitus G8 BROTHER FH: anemia G8 SISTER FH: congestive heart failure 19 FATHER FH: emphysema 19 FATHER 19 MOTHER G8 SISTER FH: lung cancer G8 SISTER FH: sleep apnea G8 SISTER Heart murmur 19 FATHER Hypertension G8 BROTHER Psychosocial problem G8 SISTER Physical Exam Vital Signs - First Documented 02/03/22 12:00 Temp 36.9 Pulse 64 Resp 16 B/P (MAP) 160/57 (91) Pulse Ox 95 O2 Delivery Room Air Capillary Refill : Less Than 3 Seconds Height: 5'1.00" Weight: 271lbs. 7.6oz. 123.982815op; 48.00 BMI Method:Stated General Appearance: WD/WN, no apparent distress Eyes: Bilateral Eye Normal Inspection HEENT: PERRL/EOMI Neck: normal inspection Respiratory: no respiratory distress, crackles (at bases bilaterally posteriorly; no resp distress) Cardiovascular: regular rate, rhythm, bradycardia (50's) Gastrointestinal: non tender, soft Extremities: normal range of motion, non-tender, normal inspection, pedal edema (1+ bilaterally) Neurologic/Psychiatric: no motor/sensory deficits, alert, normal mood/affect, oriented x 3 Skin: normal color, warm/dry, other (skin wound right forearm - volar, crusted lesion - linear about 1.5cm. minimal erythema at margins of scab. nontender. no fluctuance or drainage or induration. arm is not edematous) Progress/Results/Core Measures Suspected Sepsis SIRS Temperature: Pulse: 64 Respiratory Rate: 16 Laboratory Tests 02/03/22 14:20: White Blood Count 7.7 Blood Pressure 160 /57 Mean: 91 Laboratory Tests 02/03/22 14:20: Creatinine 2.16H, INR Comment 1.1, Platelet Count 186, Total Bilirubin 0.5 Results/Orders Lab Results Laboratory Tests Test 02/03/22 14:20 Range/Units White Blood Count 7.7 4.3-11.0 10^3/uL Red Blood Count 3.36 L 3.80-5.11 10^6/uL Hemoglobin 10.6 L 11.5-16.0 g/dL Hematocrit 33 L 35-52 % Mean Corpuscular Volume 99 80-99 fL Mean Corpuscular Hemoglobin 32 25-34 pg Mean Corpuscular Hemoglobin Concent 32 32-36 g/dL Red Cell Distribution Width 15.1 H 10.0-14.5 % Platelet Count 186 130-400 10^3/uL Mean Platelet Volume 9.8 9.0-12.2 fL Immature Granulocyte % (Auto) 0 % Neutrophils (%) (Auto) 71 42-75 % Lymphocytes (%) (Auto) 16 12-44 % Monocytes (%) (Auto) 8 0-12 % Eosinophils (%) (Auto) 5 0-10 % Basophils (%) (Auto) 1 0-10 % Neutrophils # (Auto) 5.5 1.8-7.8 10^3/uL Lymphocytes # (Auto) 1.2 1.0-4.0 10^3/uL Monocytes # (Auto) 0.6 0.0-1.0 10^3/uL Eosinophils # (Auto) 0.4 H 0.0-0.3 10^3/uL Basophils # (Auto) 0.1 0.0-0.1 10^3/uL Immature Granulocyte # (Auto) 0.0 0.0-0.1 10^3/uL Prothrombin Time 14.4 12.2-14.7 SEC INR Comment 1.1 0.8-1.4 Activated Partial Thromboplast Time 33 24-35 SEC Sodium Level 136 135-145 MMOL/L Potassium Level 4.4 3.6-5.0 MMOL/L Chloride Level 102 98-107 MMOL/L Carbon Dioxide Level 27 21-32 MMOL/L Anion Gap 7 5-14 MMOL/L Blood Urea Nitrogen 32 H 7-18 MG/DL Creatinine 2.16 H 0.60-1.30 MG/DL Estimat Glomerular Filtration Rate 24 BUN/Creatinine Ratio 15 Glucose Level 84 70-105 MG/DL Calcium Level 9.2 8.5-10.1 MG/DL Corrected Calcium 9.6 8.5-10.1 MG/DL Magnesium Level 1.9 1.6-2.4 MG/DL Total Bilirubin 0.5 0.1-1.0 MG/DL Aspartate Amino Transf (AST/SGOT) 27 5-34 U/L Alanine Aminotransferase (ALT/SGPT) 8 0-55 U/L Alkaline Phosphatase 84 40-136 U/L Myoglobin 154.3 H 10.0-92.0 NG/ML Troponin I < 0.028 <0.028 NG/ML B-Type Natriuretic Peptide 275.7 H <100.0 PG/ML Total Protein 7.2 6.4-8.2 GM/DL Albumin 3.5 3.2-4.5 GM/DL My Orders Orders - NITO GIVENS MD Cbc With Automated Diff (02/03/22 12:59) Magnesium (02/03/22 12:59) Chest 1 View, Ap/Pa Only (02/03/22 12:59) Ekg Tracing (02/03/22 12:59) Comprehensive Metabolic Panel (02/03/22 12:59) Myoglobin Serum (02/03/22 12:59) Protime With Inr (02/03/22 12:59) Partial Thromboplastin Time (02/03/22 12:59) O2 (02/03/22 12:59) Monitor-Rhythm Ecg Trace Only (02/03/22 12:59) Lipid Panel (02/04/22 06:00) Ed Iv/Invasive Line Start (02/03/22 12:59) Troponin I [place] (02/03/22 12:59) Bnp [place] (02/03/22 12:59) Aspirin Chewable Tablet (Baby Aspirin Ch (02/03/22 12:59) Enoxaparin Injection (Lovenox Injection) (02/03/22 15:15) Ed Admission (Communication) (02/03/22 15:14) Vital Signs/I&O 02/03/22 12:00 Temp 36.9 Pulse 64 Resp 16 B/P (MAP) 160/57 (91) Pulse Ox 95 O2 Delivery Room Air Capillary Refill : Less Than 3 Seconds Blood Pressure Mean: 91 Progress Note : Time: 15:22 Progress Note Patient advised of plan of care, recommendation to admit for anginal type pain. She does have a mild increase in her serum creatinine. She is slightly anemic with a hemoglobin of 10. Troponin is negative. Case was discussed with Dr. Anderson as well as with Dr. Echavarria. After discussion with the patient she is also endorsing symptoms of early satiety, discomfort in the epigastrium every time she eats. She states she has not eaten at all today. She describes that this pressure/pain is different than the pressure and discomfort she gets when she is walking however. No unintentional weight loss is reported. ECG Initial ECG Impression Date: Feb 03, 2022 Initial ECG Impression Time: 13:18 Initial ECG Rate: 64 Comment Junctional rhythm at 64 bpm, Q waves noted inferiorly with nonspecific ST-T wave changes throughout. There may be P waves noted in lead II's rhythm strip although they are very difficult to discern very wide QRS complex (160) Diagnostic Imaging Diagonstic Imaging: Xray Plain Films/CT/US/NM/MRI: chest Comments [facility] [place], [place] NAME: [facility] REC#: [id number] PT STATUS: REG ER : 1950 PHYSICIAN: NITO GIVENS MD ADMIT DATE: 02/03/22/ER Draft Date of Exam:02/03/22 CHEST 1 VIEW, AP/PA ONLY INDICATION: Chest pain. COMPARISON: 08/03/2021 FINDINGS: There is stable enlargement of the cardiac silhouette. There is no dense airspace consolidation. There is no large effusion. There are no current findings of edema or failure. There is no pneumothorax. IMPRESSION: Enlarged cardiac silhouette without current evidence of pneumonia or edema. Dictated on workstation # [id number] Dict: 02/03/22 1328 Trans: 02/03/22 1330 [facility] [id number] Interpreted by: GAEL LAKE MD Electronically signed by: Departure Communication (Admissions) Time/Spoke to Admitting Phy: 15:[address] Echavarria - kaylan do que'd orders Time/Spoke to Consulting Phy: 15:[address] Anderson; lovenox, aspirin and NPO after midnight Impression Primary Impression: Unstable angina Additional Impression: Diabetes Qualified Codes: E13.59 - Other specified diabetes mellitus with other circulatory complications Disposition: ADMITTED INPATIENT Condition: Stable Admissions Decision to Admit Reason: Admit from ER (General) Decision to Admit/Date: Feb 03, 2022 Time/Decision to Admit Time: 13:41 Departure-Patient Inst. Referrals: [facility] (PCP/Family) Primary Care Physician Scripts Enoxaparin Sodium (Enoxaparin Sodium) 120 Mg/0.8 Ml Syringe 110 MG SQ Q24H for 7 Days, SYRINGE Prov: MIGEL ECHAVARRIA DO 02/04/22 NITO GIVENS MD Feb 03, 2022 12:56
[2022-02-03] MEDS ORDERED: ASPIRIN 81 MG CHEW (CHILDREN'S ASA) PO STA (12:59)
--- NOTE | 2022-02-03 13:30 | Diagnostic Imaging Report ---
INDICATION: Chest pain. COMPARISON: 08/03/2021 FINDINGS: There is stable enlargement of the cardiac silhouette. There is no dense airspace consolidation. There is no large effusion. There are no current findings of edema or failure. There is no pneumothorax. IMPRESSION: Enlarged cardiac silhouette without current evidence of pneumonia or edema. Dictated by: Dictated on workstation # [id number]
[2022-02-03 14:29] LABS: BASOPHILS # (AUTO) 0.1 10^3/uL (0.0-0.1); BASOPHILS % (AUTO) 1 % (0-10); EOSINOPHILS # (AUTO) 0.4 10^3/uL (0.0-0.3); EOSINOPHILS % (AUTO) 5 % (0-10); HEMATOCRIT 33 % (35-52); HEMOGLOBIN 10.6 g/dL (11.5-16.0); LYMPHOCYTES # (AUTO) 1.2 10^3/uL (1.0-4.0); LYMPHOCYTES % (AUTO) 16 % (12-44); MEAN CORPUSCULAR HEMOGLOBIN 32 pg (25-34); MEAN CORPUSCULAR HGB CONC 32 g/dL (32-36); MEAN CORPUSCULAR VOLUME 99 fL (80-99); MEAN PLATELET VOLUME 9.8 fL (9.0-12.2); MONOCYTES # (AUTO) 0.6 10^3/uL (0.0-1.0); MONOCYTES % (AUTO) 8 % (0-12); NEUTROPHILS # (AUTO) 5.5 10^3/uL (1.8-7.8); NEUTROPHILS % (AUTO) 71 % (42-75); PLATELET COUNT 186 10^3/uL (130-400); WHITE BLOOD COUNT 7.7 10^3/uL (4.3-11.0)
[2022-02-03 14:44] LABS: INR 1.1 (0.8-1.4); PROTHROMBIN TIME PATIENT 14.4 SEC (12.2-14.7)
[2022-02-03 14:45] LABS: ALBUMIN 3.5 GM/DL (3.2-4.5); POTASSIUM 4.4 MMOL/L (3.6-5.0)
[2022-02-03 14:46] LABS: CALCIUM 9.2 MG/DL (8.5-10.1)
[2022-02-03 14:47] LABS: TOTAL PROTEIN 7.2 GM/DL (6.4-8.2)
[2022-02-03 14:49] LABS: BILIRUBIN,TOTAL 0.5 MG/DL (0.1-1.0)
[2022-02-03 14:51] LABS: CREATININE SERUM 2.16 MG/DL (0.60-1.30)
[2022-02-03 14:53] LABS: MAGNESIUM 1.9 MG/DL (1.6-2.4)
[2022-02-03] MEDS ORDERED: ENOXAPARIN 60 MG/0.6 ML (LOVENOX) SYR SC ONE (15:15)
[2022-02-03 16:15] VITALS: BP 136/62
[2022-02-03] MEDS ORDERED: ONDANSETRON 4 MG/2 ML (SDV) Z0FRAN IV PRN (16:45)
[2022-02-03] MEDS ORDERED: NITROGLYCERIN 0.4 MG SL TABS BTL 25'S SL PRN (16:45)
[2022-02-03] MEDS ORDERED: polyethylene glycoL POWDER 17 GM (MIRALAX) PACK PO PRN (16:45)
[2022-02-03] MEDS ORDERED: cloNIDine 0.1 MG (CATAPRES) TAB PO PRN (16:45)
[2022-02-03] MEDS ORDERED: morphine IMMEDIATE RELEASE 15 MG TABLET PO PRN (16:45)
[2022-02-03] MEDS ORDERED: PATIENT MAY USE OWN MEDS, ALL PO SCH (16:45)
[2022-02-03] MEDS ORDERED: ACETAMINOPHEN 325 MG TABLET PO PRN (16:45)
[2022-02-03] MEDS ORDERED: diphenhydrAMINE 25 MG TAB (BENADRYL) PO PRN (16:45)
[2022-02-03] MEDS ORDERED: CALCIUM CARBONATE 500 MG (TUMS) TAB.CHEW PO PRN (16:45)
[2022-02-03] MEDS ORDERED: ANTACID SUSP 30 ML UDC (MYLANTA) PO PRN (16:45)
[2022-02-03] MEDS ORDERED: diphenhydrAMINE 50 MG/ML INJ (BENADRYL) IVP PRN (16:45)
[2022-02-03] MEDS ORDERED: LORazepam 0.5 MG (ATIVAN) TABLET PO PRN (16:45)
[2022-02-03] MEDS ORDERED: LACTULOSE SYRUP 10GM/15ML (ENULOSE) 30ML UDC PO PRN (16:45)
[2022-02-03] MEDS ORDERED: morphine INJ 4 MG/ML 1 ML (VIAL/SYRINGE) IV PRN (16:45)
[2022-02-03] MEDS ORDERED: ONDANSETRON 4 MG (ZOFRAN) ORAL DISSOLVE TAB PO PRN (16:45)
[2022-02-03] MEDS ORDERED: BISACODYL 10 MG SUPP (DULCOLAX) PR PRN (16:45)
[2022-02-03] MEDS ORDERED: MILK OF MAGNESIA 400 MG/5 ML 30 ML UDC PO PRN (16:45)
[2022-02-03] MEDS ORDERED: MELATONIN 3 MG TABLET PO PRN (16:45)
[2022-02-03] MEDS ORDERED: ENOXAPARIN 40 MG/0.4 ML (LOVENOX) SYR SC SCH (16:45)
[2022-02-03 16:59] VITALS: BP 160/57
[2022-02-03] MEDS ORDERED: ENOXAPARIN 120 MG/0.8 ML (LOVENOX) SQ SCH (17:00)
[2022-02-03] MEDS ORDERED: RT-ALBUTEROL/IPRATROPIUM 3 ML (DUONEB) VIAL INH PRN (17:15)
[2022-02-03 20:00] VITALS: BP 128/87
[2022-02-03] MEDS: inSUlin ASPART (NovoLOG) 1 UNIT/0.01 ML (CHARGE PER UNIT) SC SCH (21:09)
[2022-02-03] MEDS: SENNOSIDES 8.6 MG (SENOKOT) TAB PO SCH (21:10)
[2022-02-03] MEDS: DOCUSATE SODIUM 100 MG (COLACE) CAP PO SCH (21:10)
[2022-02-03 23:58] VITALS: BP 128/60
[2022-02-04] VITALS (8 sets, daily range): BP systolic 116–155; BP diastolic 46–67
[2022-02-04 05:34] LABS: BASOPHILS # (AUTO) 0.1 10^3/uL (0.0-0.1); BASOPHILS % (AUTO) 1 % (0-10); EOSINOPHILS # (AUTO) 0.4 10^3/uL (0.0-0.3); EOSINOPHILS % (AUTO) 6 % (0-10); HEMATOCRIT 32 % (35-52); HEMOGLOBIN 9.7 g/dL (11.5-16.0); LYMPHOCYTES # (AUTO) 1.3 10^3/uL (1.0-4.0); LYMPHOCYTES % (AUTO) 20 % (12-44); MEAN CORPUSCULAR HEMOGLOBIN 31 pg (25-34); MEAN CORPUSCULAR HGB CONC 30 g/dL (32-36); MEAN CORPUSCULAR VOLUME 102 fL (80-99); MEAN PLATELET VOLUME 10.3 fL (9.0-12.2); MONOCYTES # (AUTO) 0.7 10^3/uL (0.0-1.0); MONOCYTES % (AUTO) 10 % (0-12); NEUTROPHILS # (AUTO) 4.3 10^3/uL (1.8-7.8); NEUTROPHILS % (AUTO) 63 % (42-75); PLATELET COUNT 155 10^3/uL (130-400); WHITE BLOOD COUNT 6.7 10^3/uL (4.3-11.0)
[2022-02-04 05:47] LABS: ALBUMIN 3.2 GM/DL (3.2-4.5); CHLORIDE 102 MMOL/L (98-107); POTASSIUM 4.4 MMOL/L (3.6-5.0); SODIUM 135 MMOL/L (135-145)
[2022-02-04 05:49] LABS: CALCIUM 8.9 MG/DL (8.5-10.1)
[2022-02-04 05:50] LABS: GLUCOSE 79 MG/DL (70-105); TOTAL PROTEIN 6.7 GM/DL (6.4-8.2)
[2022-02-04 05:51] LABS: CARBON DIOXIDE 23 MMOL/L (21-32)
[2022-02-04 05:52] LABS: BILIRUBIN,TOTAL 0.5 MG/DL (0.1-1.0)
[2022-02-04 05:53] LABS: ALKALINE PHOSPHATASE 84 U/L (40-136); CREATININE SERUM 2.35 MG/DL (0.60-1.30); GFR ESTIMATED 22
[2022-02-04 05:54] LABS: BUN/CREATININE RATIO 15
[2022-02-04 05:56] LABS: ALANINE AMINOTRANSFERASE 6 U/L (0-55)
[2022-02-04] MEDS: inSUlin ASPART (NovoLOG) 1 UNIT/0.01 ML (CHARGE PER UNIT) SC SCH ×3 (06:14→17:05)
[2022-02-04 06:20] LABS: TRIGLYCERIDES 83 MG/DL (<150); VLDL CHOLESTEROL 17 MG/DL (5-40)
[2022-02-04 06:25] LABS: CHOLESTEROL 95 MG/DL (< 200)
[2022-02-04 06:26] LABS: HDL CHOLESTEROL 29 MG/DL (40-60)
[2022-02-04] MEDS ORDERED: FLU QUAD HIGH DOSE 240 MCG/0.7 ML 2022-23 (FLUZONE) IM ONE (07:15)
[2022-02-04] MEDS: DOCUSATE SODIUM 100 MG (COLACE) CAP PO SCH (09:00)
[2022-02-04] MEDS ORDERED: ASPIRIN E.C. 81 MG (ECOTRIN) TAB PO SCH (09:00)
[2022-02-04] MEDS: SENNOSIDES 8.6 MG (SENOKOT) TAB PO SCH (09:00)
[2022-02-04] MEDS ORDERED: REGADENOSON 0.4 MG/5 ML SYR (LEXISCAN) IV ONE ×2 (09:00→09:36)
[2022-02-04] MEDS ORDERED: CATHETER FLUSH 10 ML SYR IVP PRN (09:15)
--- NOTE | 2022-02-04 09:34 | Consultation-Cardiology ---
HPI-Cardiology Cardiology Consultation Date of Consultation 02/04/22 Date of Admission Time Seen by Provider: 09:28 Indication: Shortness of breath HPI 71-year-old lady with history of hypertension, hyperlipidemia, sinus node dysfunction. Patient has been having increasing dyspnea on exertion which has been worsening significantly. Patient reporting dyspnea after walking a short distance. She has been reporting chest pressure on exertion with her dyspnea. No palpitation. No syncope or near syncopal episodes. She has been wearing compression socks due to chronic pedal edema. Patient has underlying diabetes. Has chronic kidney disease. On my evaluation she was laying down comfortably in bed, still reporting dyspnea on exertion, feeling better while she is laying down in bed. Home Medications & Allergies Allergies: Coded Allergies: codeine (Verified Allergy, Severe, ITCHING, 03/09/17) Home Medication List Reviewed: Yes ELS-Eqqpgs-Oqgmqu Hx Patient Social History Marital Status: Employed/Student: retired Smoking Status: Former Smoker Type Used: Cigarettes 2nd Hand Smoke Exposure: No Recent Hopitalizations: No Have you traveled recently?: Yes Where was recent travel?: [place], [place] Alcohol Use?: No Immunizations Up To Date Tetanus Booster (TDap): More than 5yrs Date of Pneumonia Vaccine: Feb 02, 2017 Date of Influenza Vaccine: Jan 03, 2019 Past Medical History Discussed Family Medical History Family History: Alzheimer's disease 19 MOTHER Diabetes mellitus G8 BROTHER FH: anemia G8 SISTER FH: congestive heart failure 19 FATHER FH: emphysema 19 FATHER 19 MOTHER G8 SISTER FH: lung cancer G8 SISTER FH: sleep apnea G8 SISTER Heart murmur 19 FATHER Hypertension G8 BROTHER Psychosocial problem G8 SISTER Review of Systems-General Review of Systems Constitutional: see HPI EENTM: no symptoms reported Respiratory: see HPI; No cough; dyspnea on exertion; No hemoptysis, No orthopnea, No phlegm; short of breath; No stridor, No wheezing, No other Cardiovascular: see HPI, chest pain ("pressure"), edema; No Hx of Intervention, No palpitations, No syncope, No vascular heart diseas, No other Gastrointestinal: see HPI, nausea Genitourinary: no symptoms reported, see HPI Musculoskeletal: no symptoms reported, see HPI Skin: see HPI, other (wound right volar forearm) Psychiatric/Neurological: No Symptoms Reported, See HPI All Other Systems Reviewed Negative Unless Noted: Yes Reviewed Test Results Reviewed Test Results Lab Laboratory Tests Test 02/03/22 14:20 02/03/22 21:00 02/03/22 22:50 02/04/22 05:19 Range/Units White Blood Count 7.7 6.7 4.3-11.0 10^3/uL Red Blood Count 3.36 L 3.13 L 3.80-5.11 10^6/uL Hemoglobin 10.6 L 9.7 L 11.5-16.0 g/dL Hematocrit 33 L 32 L 35-52 % Mean Corpuscular Volume 99 102 H 80-99 fL Mean Corpuscular Hemoglobin 32 31 25-34 pg Mean Corpuscular Hemoglobin Concent 32 30 L 32-36 g/dL Red Cell Distribution Width 15.1 H 15.5 H 10.0-14.5 % Platelet Count 186 155 130-400 10^3/uL Mean Platelet Volume 9.8 10.3 9.0-12.2 fL Immature Granulocyte % (Auto) 0 0 % Neutrophils (%) (Auto) 71 63 42-75 % Lymphocytes (%) (Auto) 16 20 12-44 % Monocytes (%) (Auto) 8 10 0-12 % Eosinophils (%) (Auto) 5 6 0-10 % Basophils (%) (Auto) 1 1 0-10 % Neutrophils # (Auto) 5.5 4.3 1.8-7.8 10^3/uL Lymphocytes # (Auto) 1.2 1.3 1.0-4.0 10^3/uL Monocytes # (Auto) 0.6 0.7 0.0-1.0 10^3/uL Eosinophils # (Auto) 0.4 H 0.4 H 0.0-0.3 10^3/uL Basophils # (Auto) 0.1 0.1 0.0-0.1 10^3/uL Immature Granulocyte # (Auto) 0.0 0.0 0.0-0.1 10^3/uL Prothrombin Time 14.4 12.2-14.7 SEC INR Comment 1.1 0.8-1.4 Activated Partial Thromboplast Time 33 24-35 SEC Sodium Level 136 135 135-145 MMOL/L Potassium Level 4.4 4.4 3.6-5.0 MMOL/L Chloride Level 102 102 98-107 MMOL/L Carbon Dioxide Level 27 23 21-32 MMOL/L Anion Gap 7 10 5-14 MMOL/L Blood Urea Nitrogen 32 H 35 H 7-18 MG/DL Creatinine 2.16 H 2.35 H 0.60-1.30 MG/DL Estimat Glomerular Filtration Rate 24 22 BUN/Creatinine Ratio 15 15 Glucose Level 84 79 70-105 MG/DL Calcium Level 9.2 8.9 8.5-10.1 MG/DL Corrected Calcium 9.6 9.5 8.5-10.1 MG/DL Magnesium Level 1.9 1.6-2.4 MG/DL Total Bilirubin 0.5 0.5 0.1-1.0 MG/DL Aspartate Amino Transf (AST/SGOT) 27 22 5-34 U/L Alanine Aminotransferase (ALT/SGPT) 8 6 0-55 U/L Alkaline Phosphatase 84 84 40-136 U/L Myoglobin 154.3 H 10.0-92.0 NG/ML Troponin I < 0.028 < 0.028 < 0.028 <0.028 NG/ML B-Type Natriuretic Peptide 275.7 H <100.0 PG/ML Total Protein 7.2 6.7 6.4-8.2 GM/DL Albumin 3.5 3.2 3.2-4.5 GM/DL Glucometer 82 70-110 MG/DL Test 02/04/22 05:25 02/04/22 06:00 Range/Units Glucometer 79 70-110 MG/DL Triglycerides Level 83 <150 MG/DL Cholesterol Level 95 < 200 MG/DL LDL Cholesterol Direct 51 1-129 MG/DL VLDL Cholesterol 17 5-40 MG/DL HDL Cholesterol 29 L 40-60 MG/DL Physical Exam Physical Exam Vital Signs Vital Signs - First Documented 02/03/22 02/03/22 02/03/22 12:00 16:15 16:59 Temp 36.9 Pulse 64 Resp 16 B/P (MAP) 160/57 (91) Pulse Ox 95 O2 Delivery Room Air O2 Flow Rate 2.00 FiO2 21 Capillary Refill : Less Than 3 Seconds Height, Weight, BMI Height: 5'1.00" Weight: 271lbs. 7.6oz. 123.718763nn; 47.92 BMI Method:Stated General Appearance: No Apparent Distress, WD/WN Eyes: Bilateral Eye Normal Inspection HEENT: PERRL/EOMI, TMs Normal, Normal ENT Inspection, Pharynx Normal, Moist Mucous Membranes Neck: Full Range of Motion, Normal Inspection, Non Tender, Supple, Carotid Bruit Respiratory: Chest Non Tender, Normal Breath Sounds, No Accessory Muscle Use, No Respiratory Distress Cardiovascular: Regular Rate, Rhythm, No Gallop, No JVD, No Murmur, Normal Peripheral Pulses, Other (Pedal edema) Gastrointestinal: Normal Bowel Sounds, No Organomegaly, No Pulsatile Mass, Non Tender, Soft Back: Normal Inspection, No CVA Tenderness, No Vertebral Tenderness Extremity: Normal Capillary Refill, Normal Inspection, Normal Range of Motion, Non Tender, No Calf Tenderness, No Pedal Edema Neurologic/Psychiatric: Alert, Oriented x3, No Motor/Sensory Deficits, Normal Mood/Affect Skin: Normal Color, Warm/Dry Lymphatic: No Adenopathy A/P-Cardiology Admission Diagnosis Dyspnea on exertion Chest pain Hypertension Hyperlipidemia Assessment/Plan Dyspnea on exertion, worsening recently. Had mild elevation in BNP. Planning to evaluate Lexiscan stress test and 2D echocardiogram Chest pain nonspecific etiology, mainly chest pressure on exertion Worsening recently Last stress test was done in May 2017, planning to repeat stress test today. COPD/obstructive sleep apnea using CPAP at night. History of sinus node dysfunction with sinus bradycardia. Had a 48-hour Holter monitor in January 2017 showing sinus bradycardia with occasional PACs and PVCs. Hypertension, restart home medication and monitor blood pressure Pulmonary hypertension, PA pressure 45 mmHg. 2D echo was done in August 2021, reported by Dr. Rothman as normal LV size and function with a EF 55 to 60%, mild mitral stenosis, unable to evaluate pulmonary artery pressure on that study. Hyperlipidemia/hypertriglyceridemia, maintained on Lipitor 40 mg daily. Peripheral edema, lymphedema, using compression socks Maintained on diuretics Diabetes mellitus, followed and managed by primary care physician Chronic kidney disease, patient has been following with Dr. Melendez She was started on losartan 12.5 mg on January 30, 2022 Mild carotid artery disease, nonobstructive disease, ultrasound done in July 2021. History of COVID-19 pneumonia in May 2020, reported full recovery Obesity, BMI 47, we discussed weight loss. CALLIE JIM MD Feb 04, 2022 09:34
--- NOTE | 2022-02-04 11:03 | Short Stay Summary-Hospitalist ---
KLAUDIAPARKER 02/04/22 1103: History of Present Illness HPI/Chief Complaint CC: Anginal pain 71yo F presented to the ED yesterday for epigastric and chest discomfort with associated shortness of air with exertion that started 1 week ago following a "spider bite" and has been worsening. Pt had a CXR that showed an enlarged cardiac silhouette w/o current pneumonia or edema. Pt had negative troponins but had an elevated BNP in the ED and was admitted for anginal type pain. Today, pt denies any chest pain or current SOA. Pt is currently on 2L NC and O2 sat is 97%. Pt says that she still is experiencing some pressure with palpation of the epigastrium and LUQ but otherwise denies any abd pain. Pt denies any nausea, vomiting, or diarrhea. Stable for discharge today. PMH: Type II Diabetes Mellitus, Insulin Dependent CKD GERD Neuropathy Recent Right wrist fracture s/p ORIF Hypothyroidism Hypertention Hyperlipidemia Neuropathy Restless Leg Syndrome Severe Obstructive Sleep Apnea - CPAP at Night Depression Morbid Obesity, BMI 51 Hx of Tobacco Abuse Dependence on Supplemental Oxygen Surgical Hx: Right Wrist - 02/2017, 08/2017 Bilateral Carpal Tunnel Release Bilateral Cataracts Hysterectomy Ganglion Cyst Removed Tonsillectomy section Meds: Gabapentin 600mg BID Levothyroxine Sodium 125mcg Pioglitazone HCl 45mg Aspirin EC 81 mg Chlorthalidone 25mg Citalopram HBr 40mg Atorvastatin 40mg Allopurinol 100mg Allergies: codeine SHx: former smoker, retired, , no EtOH use Source: patient, old records Exam Limitations: no limitations Date Seen 02/04/22 Time Seen by a Provider: 10:59 Attending Physician [place] PCP Admitting Physician: Chio Banuelos DO Attending Physician: Chio aBnuelos DO Referring Physician Date of Admission Feb 03, 2022 at 15:15 Home Medications & Allergies Home Medications Reviewed patient Home Medication Reconciliation performed by pharmacy medication reconciliations vein access technician and/or nursing. Patients Allergies have been reviewed. Allergies Allergies Coded Allergies codeine (Verified Allergy, Severe, ITCHING, 03/09/17) Past Medical/Social/Family Hx Patient Social History Marrital Status: Employed/Student: retired Tobacco Use?: No Smoking Status: Former Smoker Smokeless Tobacco Frequency: Never a User Use of E-Cig and/or Vaping dev: No Substance use?: No Alcohol Use?: No Pt stated abuse/neglect: No Immunizations Up To Date Influenza Vaccine Up-to-Date: No; Not Current Tetanus Booster (TDap): Less Than 5 Years Hepatitis A: No Hepatitis B: No TB Skin Test: None Date of Pneumonia Vaccine: Feb 02, 2017 Current Status status: No status: No Advance Directives: No Communicates: Verbally Primary Language: Venezuelan Preferred Spoken Language: Venezuelan Is interpretation needed?: No Sensory deficits: Vision impairment Implanted or Applied Medical D: Other Past Medical History Type II Diabetes Mellitus, Insulin Dependent Recent Right wrist fracture s/p ORIF Hypothyroidism Hypertention Hyperlipidemia Neuropathy Restless Leg Syndrome Severe Obstructive Sleep Apnea - CPAP at Night Depression Morbid Obesity, BMI 51 Hx of Tobacco Abuse Dependence on Supplemental Oxygen Surgical Hx: Right Wrist - 02/2017, 08/2017 Bilateral Carpal Tunnel Release Bilateral Cataracts Hysterectomy Ganglion Cyst Removed Tonsillectomy Review of Systems Constitutional: No dizziness, No fever EENTM: No hearing loss, No ear pain Respiratory: dyspnea on exertion; No hemoptysis Cardiovascular: No chest pain, No palpitations Gastrointestinal: LLQ (epigastric,r, suprapubic, and LUQ "pressure" that coincides with DU); No diarrhea, No nausea, No vomiting Genitourinary: No dysuria, No hematuria Musculoskeletal: No back pain, No gout Skin: No change in color, No change in hair/nails Psychiatric/Neurological: Denies Anxiety, Denies Depressed All Other Systems Reviewed Negative Unless Noted: Yes Physical Exam Physical Exam Vital Signs Vital Signs - First Documented 02/03/22 02/03/22 02/03/22 12:00 16:15 16:59 Temp 36.9 Pulse 64 Resp 16 B/P (MAP) 160/57 (91) Pulse Ox 95 O2 Delivery Room Air O2 Flow Rate 2.00 FiO2 21 Capillary Refill : Less Than 3 Seconds Height, Weight, BMI Height: 5'1.00" Weight: 271lbs. 7.6oz. 123.788321re; 47.92 BMI Method:Stated General Appearance: No Apparent Distress, WD/WN Eyes: Bilateral Eye Normal Inspection HEENT: PERRL/EOMI, Moist Mucous Membranes Neck: Full Range of Motion, Normal Inspection, Non Tender, Supple Respiratory: Chest Non Tender, Normal Breath Sounds, No Respiratory Distress, Accessory Muscle Use, Crackles (R lung base) Cardiovascular: Regular Rate, Rhythm, No Gallop, No JVD, No Murmur, Normal Peripheral Pulses, Other (Pedal edema) Gastrointestinal: Normal Bowel Sounds, No Organomegaly, No Pulsatile Mass, Non Tender ("pressure" noted with palpation of epigsatrium and LUQ), Soft Back: Normal Inspection, No CVA Tenderness, No Vertebral Tenderness Extremity: Normal Inspection, Normal Range of Motion, Non Tender, No Calf Tenderness, No Pedal Edema Neurologic/Psychiatric: Alert, Oriented x3, Normal Mood/Affect Skin: Normal Color, Warm/Dry Lymphatic: No Adenopathy Results Results/Procedures Labs Laboratory Tests 02/03/22 14:20 02/04/22 05:19 Patient resulted labs reviewed. Short Stay Diagnosis Discharge Diagnosis-Short Stay Admission Diagnosis Anginal type pain DU Anemia Final Discharge Diagnosis Anginal type pain DU Anemia Conclusion Plan Pt stable, discharge following cardiac stress test today F/u with cardiology CHIO BANUELOS DO 02/05/22 0512: Short Stay Diagnosis Discharge Diagnosis-Short Stay Admission Diagnosis Unstable angina Final Discharge Diagnosis Unstable angina Severe LAD disease with abnormal stress test and abnormal cardiac catheterization requiring transfer to [place] for bypass Chronic kidney disease Conclusion Plan Transfer to [facility] Supervisory-Addendum Brief Verification & Attestation Participated in pt care: history, MDM, physical Personally performed: exam, history, MDM, supervision of care Care discussed with: Medical Student Procedures: n/a Results interpretation: Verified all documentation Verification and Attestation of Medical Student E/M Service A medical student performed and documented this service in my presence. I reviewed and verified all information documented by the medical student and made modifications to such information, when appropriate. I personally performed the physical exam and medical decision making. Chio Banuelos Feb 05, 2022,05:11 PARKER RUDOLPH Feb 04, 2022 11:03 CHIO BANUELOS DO Feb 05, 2022 05:12
[2022-02-04] MEDS ORDERED: VERAPAMIL 5 MG/2 ML (CALAN) VIAL IV ONE ×2 (11:41→15:29)
[2022-02-04] MEDS ORDERED: fentaNYL INJ 100 MCG/2 ML AMP ONE ×2 (11:41→15:28)
[2022-02-04] MEDS ORDERED: MIDAZOLAM 5 MG/5 ML (VERSED) VIAL ONE ×2 (11:41→15:28)
[2022-02-04] MEDS ORDERED: HEParin 1000 UNIT/ML (10ML VIAL) FOR BOLUS ONE ×2 (11:41→15:29)
[2022-02-04] MEDS ORDERED: LIDOCAINE 1% INJ 20 ML VIAL ONE ×2 (11:41→15:29)
[2022-02-04] MEDS ORDERED: HEParin (CATH LAB) 1,000 ML IV ONE ×2 (11:42→15:31)
[2022-02-04] MEDS ORDERED: NS IV 1000 ML 1,000 ML ONE (11:42)
[2022-02-04] MEDS ORDERED: NITRO DRIP 25000 MCG/D5W 0 ML IV ONE (11:42)
--- NOTE | 2022-02-04 11:47 | Cardiology Stress Test Report ---
Stress Test Report Date of Procedure/Referring: Date of Procedure: Feb 04, 2022 PCP [place] Admitting Physician Admitting Physician: Chio Banuelos DO Attending Physician: Chio Banuelos DO Indications: CP Baseline Heart Rate: 63 Baseline Blood Pressure: Blood Pressure Systolic: 142 Blood Pressure Diastolic: 59 Baseline Vitals Vital Signs Date Time Temp Pulse Resp B/P (MAP) Pulse Ox O2 Delivery O2 Flow Rate FiO2 02/03/22 12:00 36.9 64 16 160/57 (91) 95 Room Air 02/03/22 16:15 2.00 02/03/22 16:59 21 Baseline EKG: Baseline EKG: RBBB Summary After explaining the procedure to the patient, she signed a consent and then brought to the stress nuclear laboratory. Patient received 0.4 mg Lexiscan for stress test, ECG, heart rate and blood pressure were monitored continuously. Resting and stress dose of radio tracer were injected, imaging was acquired and reviewed in short axis, horizontal long axis and vertical long axis views. TID: 1.09 SSS: 11 SDS: 9 EF: 65 1. Patient tolerated Lexiscan well 2. Baseline sinus rhythm with right bundle branch block and occasional PVCs persisted during test 3. Extracardiac attenuation with reversible ischemia involving the basal to mid anterior wall and the whole inferior wall. 4. Normal left ventricular size, ejection fraction 65% CALLIE JIM MD Feb 04, 2022 11:46
--- NOTE | 2022-02-04 11:47 | Cardiac Procedure Note-CS/ASA ---
Pre-Procedure Note Pre-Op Procedure Note Date of Available H&P: Feb 04, 2022 Date H&P Reviewed: Feb 04, 2022 Time H&P Reviewed: 11:47 History & Physical: H&P Reviewed, Patient Examed, No changes noted Pre-Operative Diagnosis: CAD Conscious Sedation Pre-Proced Time 11:47 ASA Score 3 For ASA 3 and 4: Consider anesthesia and medical clearance. Also, for patients with a history of failed moderate sedation consider anesthesia. Airway Lungs Heart ASA score ASA 1: a normal healthy patient ASA 2: a patient with a mild systemic disease (mid diabetes, controlled hypertension, obesity ASA 3: a patient with a severe systemic disease that limits activity (angina, COPD, prior Myocardial infarction) ASA 4: a patient with an incapacitating disease that is a constant threat to life (CHF, renal failure) ASA 5: a moribund patient not expected to survive 24 hrs. (ruptured aneurysm) ASA 6: a declared brain- patient whose organs are being harvested. For emergent operations, add the letter E after the classification Mallampati Classification Grade 3 Sedation Plan Analgesia, Amnesia, Plan communicated to team members, Discussed options with patient/fam, Discussed risks with patient/fam The patient is an appropriate candidate to undergo the planned procedure, sedation, and anesthesia. The patient immediately re-assessed prior to indication. CALLIE JIM MD Feb 04, 2022 11:47
[2022-02-04] MEDS ORDERED: INSU200I4 SQ (14:47)
[2022-02-04] MEDS ORDERED: LOSA25TA41 PO (14:47)
[2022-02-04] MEDS ORDERED: FURO40TA4 PO (14:47)
[2022-02-04] MEDS ORDERED: INSU100I14 SC (14:47)
[2022-02-04] MEDS ORDERED: SULF-221 PO (14:47)
--- NOTE | 2022-02-04 16:43 | Cardiac Cath Report ---
Cardiac Cath Report Physician (s)/Tumbler Machine Operator (s) Physician CALLIE JIM MD Pre-Procedure Diagnosis Pre-Procedure Diagnosis: CAD Post-Procedure Note Procedure Start Date: Feb 04, 2022 Name of Procedure: Left heart catheterization Findings/Procedure Note PROCEDURE NOTE: 71 years old lady with recurrent chest pain, unstable angina, admitted, cardiac enzymes were negative, cardiac stress test showed multiple segment of ischemia. Scheduled for cardiac catheterization possible PTCA. After explaining the procedure to the patient, all pros and cons were explained, all questions were answered. The patient signed the consent and then she was placed on the cardiac catheterization laboratory. Groin was prepped SL fashion local anesthesia was used. Sheath placed in the right femoral artery. Bonifacio right and left catheter were used to access the coronary system. Pigtail was used to access the left ventricular cavity. Left ventriculogram was not done, pressure was measured At the end of the procedure the sheath was removed. Closure device was deployed FINDINGS: Hemodynamics LV 167/41, end-diastolic pressure of 41 Aorta 147/66 mean of 93 ANATOMY: Left Main is free of obstructive disease Left Anterior Descending has subtotal occlusion of the long segment in the mid LAD with slow flow distally Left Circumflex is moderate in size with 40 to 50% stenosis in the mid circumflex artery Right Coronary Artery is large dominant artery with mild disease nonobstructive disease LV Gram was not done, pressure was measured CONCLUSION: 1. Long segment of subtotal occlusion in the mid LAD, mild disease in the circumflex artery otherwise nonobstructive disease 2. Elevated left ventricular end-diastolic pressure DISCUSSION AND RECOMMENDATION: Due to patient comorbid condition with renal insufficiency and extensive disease in the LAD involving multiple diagonal branches, I will arrange for evaluation at a tertiary care center Anesthesia Type: Conscious Sedation Estimated blood loss (mL): 20 ml Contrast Amount: 24 ml Total Radiation Dose: 514 mGy Post-Procedure Diagnosis Post-operative diagnosis: Chest pain Coronary artery disease Hypertension Hyperlipidemia CALLIE JIM MD Feb 04, 2022 16:43
[2022-02-04] MEDS ORDERED: NS IV 1000 ML 1,000 ML IV SCH (16:45)
[2022-02-04] MEDS ORDERED: PATIENT MAY USE OWN MEDS, ALL PO SCH (16:45)
[2022-02-04] MEDS ORDERED: ENOX120D5 SQ (20:17)
== END 2022-02-04 20:16 | disposition short-term general hospital (02) ==
LOC: EDUNIT# 11:58 → ER 12:01 → UNDOADMOB 15:15 → CSD 15:15 → UNDODISOB 02-04 20:16
PROVIDERS: ADMIT Internal Medicine; ATTEND Internal Medicine
DX: I25.110 Atherosclerotic heart disease of native coronary artery with unstable angina pectoris (principal); E78.5 Hyperlipidemia, unspecified; D64.9 Anemia, unspecified; J44.9 Chronic obstructive pulmonary disease, unspecified; G47.33 Obstructive sleep apnea (adult) (pediatric); I27.20 Pulmonary hypertension, unspecified; Z79.899 Other long term (current) drug therapy; Z86.16 Personal history of COVID-19; E66.9 Obesity, unspecified; Z68.42 Body mass index [BMI] 45.0-49.9, adult; E11.22 Type 2 diabetes mellitus with diabetic chronic kidney disease; I77.9 Disorder of arteries and arterioles, unspecified; I12.9 Hypertensive chronic kidney disease with stage 1 through stage 4 chronic kidney disease, or unspecified chronic kidney disease; R60.0 Localized edema; E78.1 Pure hyperglyceridemia
CPT/HCPCS: 71045; 78452; 80053 ×2; 80061; 82947 ×2; 83735; 83874; 83880; 84484 ×2; 85025 ×2; 85610; 85730; 93005 ×2; 93017; 93041; 93458; 94760; 96372 ×2; 99284; A9502; C1760; C1894; G0378; 36415

== ENCOUNTER → 2022-03-26 | Outpatient (CLI) | payer MEDICARE ==
[~2022-03-26] MED LIST changes: +ENOX120D5 SQ; +FURO40TA4 PO; +INSU100I14 SC; +LOSA25TA41 PO; +SULF-221 PO
[2022-03-26 08:38] LABS: BASOPHILS # (AUTO) 0.1 10^3/uL (0.0-0.1); BASOPHILS % (AUTO) 1 % (0-10); EOSINOPHILS # (AUTO) 0.3 10^3/uL (0.0-0.3); EOSINOPHILS % (AUTO) 4 % (0-10); HEMATOCRIT 36 % (35-52); HEMOGLOBIN 11.4 g/dL (11.5-16.0); LYMPHOCYTES % (AUTO) 25 % (12-44); MEAN CORPUSCULAR HEMOGLOBIN 31 pg (25-34); MEAN CORPUSCULAR HGB CONC 32 g/dL (32-36); MEAN CORPUSCULAR VOLUME 97 fL (80-99); MEAN PLATELET VOLUME 9.9 fL (9.0-12.2); MONOCYTES # (AUTO) 0.7 10^3/uL (0.0-1.0); MONOCYTES % (AUTO) 9 % (0-12); NEUTROPHILS # (AUTO) 4.9 10^3/uL (1.8-7.8); NEUTROPHILS % (AUTO) 62 % (42-75); PLATELET COUNT 181 10^3/uL (130-400); WHITE BLOOD COUNT 7.9 10^3/uL (4.3-11.0)
[2022-03-26 08:48] LABS: ALBUMIN 3.5 GM/DL (3.2-4.5); POTASSIUM 3.6 MMOL/L (3.6-5.0)
[2022-03-26 08:49] LABS: CALCIUM 9.7 MG/DL (8.5-10.1)
[2022-03-26 08:51] LABS: TOTAL PROTEIN 7.3 GM/DL (6.4-8.2)
[2022-03-26 08:52] LABS: BILIRUBIN,TOTAL 0.5 MG/DL (0.1-1.0)
[2022-03-26 08:54] LABS: CREATININE SERUM 1.11 MG/DL (0.60-1.30)
== END ==
LOC: LAB 08:20
PROVIDERS: ATTEND Pediatrics
DX: I25.10 Atherosclerotic heart disease of native coronary artery without angina pectoris (principal)
CPT/HCPCS: 36415; 80053; 85025

== ENCOUNTER 2022-04-07 15:52 | Emergency (ER) | payer MEDICARE ==
[~2022-04-07] VITALS: Ht 154 cm; Wt 105.0 kg
--- NOTE | 2022-04-07 16:14 | ED Upper Extremity ---
General Chief Complaint: Upper Extremity Stated Complaint: FALL/RIGHT SHOULDER INJURY Nursing Triage Note: RIGHT SHOULDER PAIN AFTER A DOG JUMPED UP ON HER CAUSING HER TO FALL. DENIES HITTING HER HEAD. Source: patient Exam Limitations: no limitations History of Present Illness Date Seen by Provider: Apr 07, 2022 Time Seen by Provider: 16:07 Initial Comments 71-year-old female presents for right shoulder pain. Symptoms started after a dog jumped on her causing her to fall over into a truck. She has pain to the anterior portion of her right shoulder. No radiation. Aggravated by movement, relieved by rest. She has not taken anything for pain. Injury just prior to arrival. Allergies and Home Medications Allergies Coded Allergies: codeine (Verified Allergy, Severe, ITCHING, 03/09/17) Patient Home Medication List Home Medication List Reviewed: Yes Acetaminophen (Tylenol Extra Strength) 500 Mg Tablet, 1,000 MG PO Q6H PRN for PAIN-MILD, (Reported) Entered as Reported by: DEON WAGNER on 08/26/17 0911 Allopurinol (Allopurinol) 100 Mg Tablet, 100 MG PO DAILY, (Reported) Entered as Reported by: AD JOHNSON on 08/03/21 1604 Aspirin (Adult Low Dose Aspirin EC) 81 Mg Tablet.dr, 81 MG PO DAILY, (Reported) Entered as Reported by: EDSON BARTON on 09/17/16 0729 Atorvastatin Calcium (Atorvastatin Calcium) 40 Mg Tablet, 40 MG PO DAILY, (Reported) Entered as Reported by: CARLOS CANTRELL on 09/17/16 1105 Enoxaparin Sodium (Enoxaparin Sodium) 120 Mg/0.8 Ml Syringe, 110 MG SQ Q24H Prescribed by: MIGEL ECHAVARRIA on 02/04/222016 Escitalopram Oxalate (Escitalopram Oxalate) 20 Mg Tablet, 20 MG PO DAILY, (Reported) Entered as Reported by: AD JOHNSON on 08/03/21 1604 Furosemide (Furosemide) 40 Mg Tablet, 40 MG PO DAILY, (Reported) Entered as Reported by: AD JOHNSON on 02/04/22 1447 Gabapentin (Gabapentin) 600 Mg Tablet, 600 MG PO BID, (Reported) Entered as Reported by: AD JOHNSON on 08/03/21 1604 Insulin Aspart (Novolog Flexpen) 100 Unit/Ml (3 Ml) Solution, UNITS SC SLIDING/SCALE PRN for HYPERGLYCEMIA, (Reported) Entered as Reported by: AD JOHNSON on 02/04/22 144 Insulin Degludec (Tresiba Flextouch U-200) 200 Unit/Ml (3 Ml) Insuln.pen, 40 UNIT SQ HS, (Reported) Entered as Reported by: AD JOHNSON on 02/04/22 144 Levothyroxine Sodium (Levothyroxine Sodium) 137 Mcg Tablet, 137 MCG PO DAILY, (Reported) Entered as Reported by: AD JOHNSON on 08/03/21 160 Losartan Potassium (Losartan Potassium) 25 Mg Tablet, 12.5 MG PO DAILY, (Reported) Entered as Reported by: AD JOHNSON on 02/04/22 144 Magnesium Oxide (Magnesium Oxide) 400 Mg Tablet, 400 MG PO DAILY, (Reported) Entered as Reported by: AD JOHNSON on 08/03/21 160 [place]-3 Fatty Acids/Fish Oil (Fish Oil 1,200 mg Softgel) 1 Each Capsule, 2,400 MG PO BID, (Reported) Entered as Reported by: CARLOS CANTRELL on 09/17/16 1105 Pioglitazone HCl (Pioglitazone HCl) 45 Mg Tablet, 45 MG PO DAILY, (Reported) Entered as Reported by: DEON WAGNER on 08/26/17 0900 Semaglutide (Ozempic) 1 Mg/0.75 Ml (4 Mg/3 Ml) Pen.injctr, 1 MG IJ MON, (Reported) Entered as Reported by: AD JOHNSON on 08/03/21 1604 Sulfamethoxazole/Trimethoprim (Bactrim Ds Tablet) 800 Mg-160 Mg Tablet, 1 EA PO BID, (Reported) Entered as Reported by: AD JOHNSON on 02/04/22 144 Review of Systems Constitutional: no symptoms reported EENTM: no symptoms reported Respiratory: no symptoms reported Cardiovascular: no symptoms reported Gastrointestinal: no symptoms reported Genitourinary: no symptoms reported Musculoskeletal: joint pain Skin: no symptoms reported Psychiatric/Neurological: No Symptoms Reported Past Sanezzf-Stlrxs-Rbotae Hx Patient Social History Tobacco Use?: No Substance use?: No Alcohol Use?: No Immunizations Up To Date Tetanus Booster (TDap): More than 5yrs COVID19 Vaccine Access Services Librarian: UNKNOWN Seasonal Allergies Seasonal Allergies: No Past Medical History Surgeries: Yes (r shoulder, r wrist) Adenoidectomy, Hysterectomy, Oophorectomy, Orthopedic, Tonsillectomy Respiratory: Yes Sleep Apnea Currently Using CPAP: Yes Cardiac: Yes (STRESS TEST 05/21/17--NORMAL, EF 69%) High Cholesterol, Hypertension Neurological: Yes Neuropathy Reproductive Disorders: No 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 History: Hysterectomy, Menopausal Sexually Transmitted Disease: No Genitourinary: No (hx of acute renal failure) Gastrointestinal: Yes Gastroesophageal Reflux Musculoskeletal: Yes Endocrine: Yes (DM Type II; MORBID OBESITY) Diabetes, Insulin dep, Hypothyroidsim HEENT: Yes Cataract Cancer: No Psychosocial: Yes Depression Integumentary: No Blood Disorders: No Adverse Reaction/Blood Tranf: No Family Medical History Reviewed Nursing Family Hx Alzheimer's disease 19 MOTHER Diabetes mellitus G8 BROTHER FH: anemia G8 SISTER FH: congestive heart failure 19 FATHER FH: emphysema 19 FATHER 19 MOTHER G8 SISTER FH: lung cancer G8 SISTER FH: sleep apnea G8 SISTER Heart murmur 19 FATHER Hypertension G8 BROTHER Psychosocial problem G8 SISTER No Pertinent Family Hx Physical Exam Vital Signs Vital Signs - First Documented 04/07/22 16:00 Temp 36.3 Pulse 65 Resp 16 B/P (MAP) 160/65 (96) Pulse Ox 91 O2 Delivery Room Air Capillary Refill : Less Than 3 Seconds Height, Weight, BMI Height: 5'1.00" Weight: 271lbs. 7.6oz. 123.415178aw; 44.00 BMI Method:Stated General Appearance: WD/WN, no apparent distress HEENT: normal ENT inspection, pharynx normal Neck: non-tender, full range of motion, supple, normal inspection Cardiovascular: regular rate, rhythm, no edema, no murmur Respiratory: chest non-tender, lungs clear, normal breath sounds, no respiratory distress, no accessory muscle use Gastrointestinal: normal bowel sounds, non tender, soft, no organomegaly Shoulder: pain (Tenderness palpation anterior portion of the right clavicular region. Shoulder joint overall is stable but pain is worse with range of motion. Axillary sensations intact. Neurovascular and sensory intact distally.) Elbow/Forearm: normal inspection, non-tender, no evidence of injury Wrist: Yes normal inspection, Yes non-tender, Yes no evidence of injury Hand: normal inspection, non-tender, no evidence of injury Neurologic/Psychiatric: alert, normal mood/affect, oriented x 3 Skin: normal color, warm/dry Lymphatic: no adenopathy Progress/Results/Core Measures Results/Orders My Orders Orders - TATIANNA ISSA DO Shoulder, Right, 3 Views (04/07/22 16:11) Vital Signs/I&O 04/07/22 16:00 Temp 36.3 Pulse 65 Resp 16 B/P (MAP) 160/65 (96) Pulse Ox 91 O2 Delivery Room Air Blood Pressure Mean: 96 Departure Communication (Admissions) X-rays negative. Discharged in stable condition with supportive care. Impression Primary Impression: Right shoulder strain Qualified Codes: S46.911A - Strain of unspecified muscle, fascia and tendon at shoulder and upper arm level, right arm, initial encounter Disposition: HOME, SELF-CARE Condition: Stable Departure-Patient Inst. Referrals: [facility] [place] (PCP/Family) Primary Care Physician Patient Instructions: Shoulder Pain (DC) Add. Discharge Instructions: Use Motrin and Tylenol as needed for pain. Perform range of motion exercises as discussed. Return to the emergency department for any severe concerns follow-up with her primary doctor for any nonemergent needs. All discharge instructions reviewed with patient and/or family. Voiced understanding. TATIANNA ISSA DO Apr 07, 2022 16:14
[2022-04-07 16:43] VITALS: BP 160/65
--- NOTE | 2022-04-07 16:43 | Diagnostic Imaging Report ---
Shoulder, right, 3 views INDICATION: Right shoulder pain. COMPARISON: Right shoulder radiographs of 02/22/2019. TECHNIQUE: 3 views of right shoulder. FINDINGS: Old fracture deformity of the proximal humerus. It appears that there is a surgical neck fracture which is healed with anterior displacement of the humeral shaft relative to the humeral head. However, superimposed acute fracture could be present. AC joint has moderate osteoarthritis. IMPRESSION: Old fracture deformity of the proximal humerus may have healed with anterior displacement of the humeral shaft relative to the head. However, there could be a superimposed acute surgical neck fracture. CT of the right shoulder without contrast could be performed for further characterization. Dictated by: Dictated on workstation # [id number]
== END 2022-04-07 16:41 | disposition home or self-care (01) ==
LOC: EDUNIT# 15:52 → ER 15:55
DX: S46.911A Strain of unspecified muscle, fascia and tendon at shoulder and upper arm level, right arm, initial encounter (principal); G47.30 Sleep apnea, unspecified; Z98.890 Other specified postprocedural states; Z99.89 Dependence on other enabling machines and devices; W17.89XA Other fall from one level to another, initial encounter
CPT/HCPCS: 73030

== ENCOUNTER → 2022-06-12 | Outpatient (CLI) | payer MEDICARE, MEDICAID ==
[2022-06-12 10:23] LABS: BASOPHILS # (AUTO) 0.1 10^3/uL (0.0-0.1); BASOPHILS % (AUTO) 1 % (0-10); EOSINOPHILS # (AUTO) 0.3 10^3/uL (0.0-0.3); EOSINOPHILS % (AUTO) 5 % (0-10); HEMATOCRIT 33 % (35-52); HEMOGLOBIN 10.3 g/dL (11.5-16.0); LYMPHOCYTES # (AUTO) 1.1 10^3/uL (1.0-4.0); LYMPHOCYTES % (AUTO) 19 % (12-44); MEAN CORPUSCULAR HEMOGLOBIN 32 pg (25-34); MEAN CORPUSCULAR HGB CONC 32 g/dL (32-36); MEAN CORPUSCULAR VOLUME 100 fL (80-99); MEAN PLATELET VOLUME 10.1 fL (9.0-12.2); MONOCYTES # (AUTO) 0.6 10^3/uL (0.0-1.0); MONOCYTES % (AUTO) 11 % (0-12); NEUTROPHILS # (AUTO) 3.7 10^3/uL (1.8-7.8); NEUTROPHILS % (AUTO) 64 % (42-75); PLATELET COUNT 160 10^3/uL (130-400); WHITE BLOOD COUNT 5.8 10^3/uL (4.3-11.0)
[2022-06-12 10:43] LABS: ALBUMIN 3.2 GM/DL (3.2-4.5); CALCIUM 9.2 MG/DL (8.5-10.1); CREATININE SERUM 1.49 MG/DL (0.60-1.30); PHOSPHORUS 3.5 MG/DL (2.3-4.7); POTASSIUM 3.7 MMOL/L (3.6-5.0); URIC ACID 5.4 MG/DL (2.6-7.2)
[2022-06-12 10:43] LABS: URINE CREATININE FOR RATIO 29 MG/DL (30-125)
[2022-06-12 10:44] LABS: URINE PROTEIN FOR RATIO ONLY < 6 MG/DL (6-12)
== END ==
LOC: LAB 09:54
DX: N18.31 Chronic kidney disease, stage 3a (principal)
CPT/HCPCS: 36415; 80061; 80069; 82306; 82570; 83036; 83970; 84156; 84550; 85025

== ENCOUNTER → 2022-07-16 | Outpatient (CLI) | payer MEDICARE, MEDICAID ==
[2022-07-16 09:29] LABS: ALBUMIN 3.6 GM/DL (3.2-4.5); CALCIUM 9.8 MG/DL (8.5-10.1); CREATININE SERUM 1.27 MG/DL (0.60-1.30); PHOSPHORUS 2.9 MG/DL (2.3-4.7); POTASSIUM 3.8 MMOL/L (3.6-5.0)
== END ==
LOC: LAB 08:56
PROVIDERS: ATTEND Nurse Practitioner Family
DX: I12.9 Hypertensive chronic kidney disease with stage 1 through stage 4 chronic kidney disease, or unspecified chronic kidney disease (principal); N18.32 Chronic kidney disease, stage 3b; R60.0 Localized edema; G47.33 Obstructive sleep apnea (adult) (pediatric); E78.2 Mixed hyperlipidemia
CPT/HCPCS: 36415; 80069

== ENCOUNTER → 2022-11-07 | Outpatient (CLI) | payer MEDICARE, MEDICAID ==
[~2022-11-07] MED LIST changes: -INSU100I29 SQ; +INSU100I30 SQ
[2022-11-07 12:15] LABS: BASOPHILS # (AUTO) 0.1 10^3/uL (0.0-0.1); BASOPHILS % (AUTO) 1 % (0-10); EOSINOPHILS # (AUTO) 0.4 10^3/uL (0.0-0.3); EOSINOPHILS % (AUTO) 4 % (0-10); HEMATOCRIT 34 % (35-52); HEMOGLOBIN 10.9 g/dL (11.5-16.0); LYMPHOCYTES # (AUTO) 1.3 10^3/uL (1.0-4.0); LYMPHOCYTES % (AUTO) 12 % (12-44); MEAN CORPUSCULAR HEMOGLOBIN 31 pg (25-34); MEAN CORPUSCULAR HGB CONC 32 g/dL (32-36); MEAN CORPUSCULAR VOLUME 97 fL (80-99); MEAN PLATELET VOLUME 10.4 fL (9.0-12.2); MONOCYTES # (AUTO) 0.8 10^3/uL (0.0-1.0); MONOCYTES % (AUTO) 8 % (0-12); NEUTROPHILS # (AUTO) 7.6 10^3/uL (1.8-7.8); NEUTROPHILS % (AUTO) 74 % (42-75); PLATELET COUNT 227 10^3/uL (130-400); WHITE BLOOD COUNT 10.2 10^3/uL (4.3-11.0)
[2022-11-07 12:21] LABS: ALBUMIN 3.3 GM/DL (3.2-4.5)
[2022-11-07 12:23] LABS: CALCIUM 9.1 MG/DL (8.5-10.1)
[2022-11-07 12:27] LABS: CREATININE SERUM 1.19 MG/DL (0.60-1.30); PHOSPHORUS 3.3 MG/DL (2.3-4.7)
[2022-11-07 12:30] LABS: URIC ACID 6.4 MG/DL (2.6-7.2)
[2022-11-07 12:36] LABS: URINE CREATININE FOR RATIO 31 MG/DL (30-125)
[2022-11-07 12:37] LABS: URINE PROTEIN FOR RATIO ONLY < 6 MG/DL (6-12)
== END ==
LOC: LAB 11:31
PROVIDERS: ATTEND Nurse Practitioner Family
DX: E11.22 Type 2 diabetes mellitus with diabetic chronic kidney disease (principal); I12.9 Hypertensive chronic kidney disease with stage 1 through stage 4 chronic kidney disease, or unspecified chronic kidney disease; N18.32 Chronic kidney disease, stage 3b; R60.0 Localized edema; G47.33 Obstructive sleep apnea (adult) (pediatric); E78.2 Mixed hyperlipidemia
CPT/HCPCS: 36415; 80061; 80069; 82306; 82570; 83036; 83970; 84156; 84550; 85025

== ENCOUNTER → 2022-12-25 | Outpatient (CLI) | payer MEDICARE, MEDICAID ==
[2022-12-25 14:11] LABS: BASOPHILS # (AUTO) 0.1 10^3/uL (0.0-0.1); BASOPHILS % (AUTO) 1 % (0-10); EOSINOPHILS # (AUTO) 0.4 10^3/uL (0.0-0.3); EOSINOPHILS % (AUTO) 4 % (0-10); HEMATOCRIT 37 % (35-52); LYMPHOCYTES # (AUTO) 1.7 10^3/uL (1.0-4.0); LYMPHOCYTES % (AUTO) 17 % (12-44); MEAN CORPUSCULAR HEMOGLOBIN 30 pg (25-34); MEAN CORPUSCULAR HGB CONC 32 g/dL (32-36); MEAN CORPUSCULAR VOLUME 92 fL (80-99); MEAN PLATELET VOLUME 10.3 fL (9.0-12.2); MONOCYTES # (AUTO) 0.8 10^3/uL (0.0-1.0); MONOCYTES % (AUTO) 8 % (0-12); NEUTROPHILS # (AUTO) 6.9 10^3/uL (1.8-7.8); NEUTROPHILS % (AUTO) 70 % (42-75); PLATELET COUNT 261 10^3/uL (130-400); WHITE BLOOD COUNT 9.8 10^3/uL (4.3-11.0)
[2022-12-25 14:34] LABS: ALBUMIN 3.5 GM/DL (3.2-4.5); BILIRUBIN,TOTAL 0.5 MG/DL (0.1-1.0); CREATININE SERUM 1.43 MG/DL (0.60-1.30); POTASSIUM 3.6 MMOL/L (3.6-5.0); TOTAL PROTEIN 7.1 GM/DL (6.4-8.2)
[2022-12-25 15:12] LABS: TSH (THYROID ANALYZER) 0.02 UIU/ML (0.35-4.94)
[2022-12-25 15:47] LABS: FREE T4 (FREE THYROXINE) 1.43 NG/DL (0.70-1.48)
== END ==
LOC: LAB 11:02
PROVIDERS: ATTEND Pediatrics
DX: Z00.00 Encounter for general adult medical examination without abnormal findings (principal)
CPT/HCPCS: 36415; 80053; 80061; 82607; 83036; 84439; 84443; 85025

== ENCOUNTER → 2023-03-25 | Outpatient (CLI) | payer MEDICARE ==
--- NOTE | 2023-03-25 12:17 | Diagnostic Imaging Report ---
CLINICAL INDICATION: Patient having and foggy brain and history of falls. Patient has mental status changes. EXAM: MRI of the brain performed without IV contrast. Sequences include axial DWI, ADC map, axial T1, axial T2, axial FLAIR, coronal gradient echo, and sagittal T1. COMPARISON: CT scan of the head and cervical spine without contrast dated 06/24/2017. FINDINGS: There is no evidence of acute cerebral infarct, intracranial hemorrhage, or gross mass effect. There is diffuse brain parenchymal volume loss. There is a focal area of high T2 signal white matter changes involving the high posterior right frontal region. There are small areas of high T2 signal changes involving the right parietal region. There is minimal confluent high T2 signal in the periventricular regions. These findings may be related to chronic small vessel ischemic changes. There is normal cleary-white matter distinction. There is no significant midline shift or herniation. Visualized pauma of Hernández vascular structures are unremarkable. There is no evidence of hydrocephalus. The basal cisterns are unremarkable. The skull, extracranial soft tissue, and orbits are unremarkable. There is minimal mucosal thickening involving the floor of both maxillary sinuses. Temporal bones show no significant abnormality. IMPRESSION: 1: There is no evidence of acute intracranial process. 2: There are age-related brain parenchymal changes including brain parenchymal volume loss. 3: There is mild paranasal sinus disease. Dictated by: Dictated on workstation # [id number]
== END ==
LOC: RAD 09:51
PROVIDERS: ATTEND Family Medicine
DX: G93.89 Other specified disorders of brain (principal); J32.8 Other chronic sinusitis; R41.82 Altered mental status, unspecified
CPT/HCPCS: 70551